=== PATIENT | female | born 1955 | race Caucasian/White ===

== ENCOUNTER 2023-06-02 20:39 | Inpatient (IN) | payer OTHER ==
[~2023-06-02] VITALS: Ht 162.6 cm; Wt 83.0 kg
[2023-06-02] MEDS ORDERED: cloNIDine HCL 0.1 MG TAB PO ONE (21:15)
[2023-06-02 21:46] LABS: Basophils # (auto) 0.1 10 ^3/uL (0-0.2); Basophils % (auto) 1.3 % (0.0-2.0); Eosinophils # (auto) 0.2 10 ^3/uL (0-0.8); Eosinophils % (auto) 2.2 % (0.0-7.0); Hematocrit 35.6 % (36.0-46.0); Hemoglobin 12.4 g/dL (12.2-16.2); Lymphocytes # (auto) 1.4 10 ^3/uL (0.4-5.4); Lymphocytes % (auto) 17.8 % (10.0-50.0); Mean Corpuscular Hemoglobin 31.3 pg (28.0-32.0); Mean Corpuscular Hgb Conc. 34.9 g/dL (32.0-36.0); Mean Corpuscular Volume 89.8 fL (80.0-100.0); Monocytes # (auto) 0.6 10 ^3/uL (0-1.3); Monocytes % (auto) 8.2 % (0.0-12.0); Neutrophils # (auto) 5.5 10 ^3/uL (1.6-8.6); Neutrophils % (auto) 70.5 % (37.0-80.0); Nucleated Red Blood Cells % 0.3 %; Red Blood Cells 3.96 10^6/uL (4.0-5.20); Red Cell Distribution Width 12.7 % (11.8-14.3); White Blood Cell 7.8 10^3/uL (4.4-10.8)
[2023-06-02 21:58] LABS: Urine Bacteria MANY /hpf (None Seen); Urine Blood Negative /uL (Negative); Urine Clarity HAZY (Clear); Urine Color Colorless (Yellow); Urine Protein, UAD 2+ (Negative); Urine Specific Gravity 1.017 (1.001-1.035); Urine Urobilinogen Normal (Negative); Urine WBC 91 /hpf (0 - 5); Urine pH 5.5 (5.0-8.0)
[2023-06-02 22:06] LABS: Albumin 3.7 g/dL (3.4-5.0); Calcium 9.1 mg/dL (8.5-10.1); Potassium 4.5 mmol/L (3.5-5.1)
[2023-06-02 22:08] LABS: Bilirubin, Total 0.2 mg/dL (0.2-1.0); Total Protein 8.1 g/dL (6.4-8.2)
[2023-06-03] MEDS ORDERED: ONDANSETRON ODT 4 MG TAB PO ONE ×2 (01:30→04:30)
[2023-06-03] MEDS ORDERED: MORPHINE SULFATE INJ 2 MG/ml SYRG IM ONE (01:30)
[2023-06-03] MEDS ORDERED: cefTRIAXone 1GM/50ML D5W 50 ML IV ONE (03:30)
[2023-06-03] MEDS ORDERED: hydrALAZINE HCL 20 MG/ML VL IV ONE (03:30)
[2023-06-03] MEDS ORDERED: NITROGLYCERIN 0.4 MG SL TAB SL PRN (04:00)
[2023-06-03] MEDS ORDERED: ONDANSETRON HCL 4 MG/2 ML VIAL IV PRN (04:00)
[2023-06-03] MEDS ORDERED: DOCUSATE SOD 100 MG CAP PO PRN (04:00)
[2023-06-03] MEDS ORDERED: MORPHINE SULFATE INJ 2 MG/ml SYRG IV PRN (04:00)
[2023-06-03] MEDS ORDERED: DEXTROSE (50%) 50ML SYRG IV PRN (04:00)
[2023-06-03] MEDS ORDERED: ACETAMINOPHEN 325 MG TAB PO PRN (04:00)
[2023-06-03] MEDS ORDERED: HYDROcodone-ACET 5/325MG TAB PO PRN (04:00)
[2023-06-03 04:49] LABS: Basophils # (auto) 0.1 10 ^3/uL (0-0.2); Basophils % (auto) 1.1 % (0.0-2.0); Eosinophils # (auto) 0.1 10 ^3/uL (0-0.8); Eosinophils % (auto) 1.3 % (0.0-7.0); Hematocrit 34.1 % (36.0-46.0); Hemoglobin 11.4 g/dL (12.2-16.2); Lymphocytes # (auto) 1.6 10 ^3/uL (0.4-5.4); Lymphocytes % (auto) 16.8 % (10.0-50.0); Mean Corpuscular Hemoglobin 30.7 pg (28.0-32.0); Mean Corpuscular Hgb Conc. 33.4 g/dL (32.0-36.0); Mean Corpuscular Volume 91.9 fL (80.0-100.0); Monocytes # (auto) 0.8 10 ^3/uL (0-1.3); Monocytes % (auto) 7.7 % (0.0-12.0); Neutrophils # (auto) 7.2 10 ^3/uL (1.6-8.6); Neutrophils % (auto) 73.1 % (37.0-80.0); Nucleated Red Blood Cells % 0.1 %; Red Blood Cells 3.71 10^6/uL (4.0-5.20); Red Cell Distribution Width 12.7 % (11.8-14.3); White Blood Cell 9.8 10^3/uL (4.4-10.8)
[2023-06-03 05:02] LABS: Potassium 4.5 mmol/L (3.5-5.1)
[2023-06-03 05:18] LABS: Albumin 3.4 g/dL (3.4-5.0); BUN/Creatinine Ratio 37.6 (10.0-20.0)
[2023-06-03 05:23] LABS: Bilirubin, Total 0.2 mg/dL (0.2-1.0); Total Protein 7.8 g/dL (6.4-8.2)
[2023-06-03] MEDS: SODIUM CHLOR 0.9% PF (SALINE LOCK) 10ML VIAL/SYR IV SCH ×3 (06:41→21:49)
[2023-06-03] MEDS: InsuLIN REG 1unit/0.01ml Soln (100units/ml) SC SCH ×4 (07:21→21:54)
[2023-06-03] MEDS: ACCU-CHEK COMFORT CURVE STRIP VI SCH ×4 (07:24→21:48)
[2023-06-03] MEDS ORDERED: METOCLOPRAMIDE HCL 5MG/ml INJ 2ml VIAL IV PRN (08:00)
[2023-06-03] MEDS: amLODIPine BESYLATE 5 MG TAB PO SCH (11:11)
[2023-06-03 13:55] VITALS: RESP 17; O2SAT 98
[2023-06-03] MEDS: SODIUM BICARBONATE 650 MG TAB PO SCH ×2 (15:33→21:48)
[2023-06-03 16:54] VITALS: BP 121/67; PULSE 64; RESP 14; RESP 17; TEMP 97.4; O2SAT 93; O2SAT 98
[2023-06-03 20:00] VITALS: PULSE 77; PULSE 80; RESP 18
[2023-06-03 22:00] VITALS: BP 168/81; PULSE 71; RESP 18; TEMP 97.7; O2SAT 96
[2023-06-04] VITALS (7 sets, daily range): BP systolic 142–163; BP diastolic 61–79; PULSE 79–93; RESP 16–18; TEMP 98.1–98.8; O2SAT 91–95
[2023-06-04] MEDS: cefTRIAXone 1GM/50ML D5W 50 ML IV SCH (03:11)
[2023-06-04] MEDS: hydrALAZINE HCL 20 MG/ML VL IV PRN ×2 (05:06→19:53)
[2023-06-04] MEDS: SODIUM BICARBONATE 650 MG TAB PO SCH ×3 (05:06→22:00)
[2023-06-04] MEDS: SODIUM CHLOR 0.9% PF (SALINE LOCK) 10ML VIAL/SYR IV SCH ×3 (05:11→22:00)
[2023-06-04 06:01] LABS: Basophils # (auto) 0 10 ^3/uL (0-0.2); Basophils % (auto) 0.4 % (0.0-2.0); Eosinophils # (auto) 0.1 10 ^3/uL (0-0.8); Eosinophils % (auto) 0.6 % (0.0-7.0); Hematocrit 33.7 % (36.0-46.0); Hemoglobin 11.6 g/dL (12.2-16.2); Lymphocytes # (auto) 1.5 10 ^3/uL (0.4-5.4); Lymphocytes % (auto) 13.5 % (10.0-50.0); Mean Corpuscular Hemoglobin 31.2 pg (28.0-32.0); Mean Corpuscular Hgb Conc. 34.5 g/dL (32.0-36.0); Mean Corpuscular Volume 90.5 fL (80.0-100.0); Monocytes # (auto) 0.6 10 ^3/uL (0-1.3); Monocytes % (auto) 5.7 % (0.0-12.0); Neutrophils # (auto) 8.6 10 ^3/uL (1.6-8.6); Neutrophils % (auto) 79.8 % (37.0-80.0); Red Blood Cells 3.72 10^6/uL (4.0-5.20); White Blood Cell 10.8 10^3/uL (4.4-10.8)
[2023-06-04] MEDS: ACCU-CHEK COMFORT CURVE STRIP VI SCH ×3 (06:15→17:00)
[2023-06-04] MEDS: InsuLIN REG 1unit/0.01ml Soln (100units/ml) SC SCH ×4 (06:16→23:00)
[2023-06-04 06:24] LABS: Potassium 4.4 mmol/L (3.5-5.1)
[2023-06-04 06:31] LABS: Albumin 3.2 g/dL (3.4-5.0); BUN/Creatinine Ratio 33.9 (10.0-20.0); Bilirubin, Total 0.2 mg/dL (0.2-1.0); Calcium 8.5 mg/dL (8.5-10.1); Total Protein 7.6 g/dL (6.4-8.2)
[2023-06-04] MEDS: amLODIPine BESYLATE 5 MG TAB PO SCH (09:20)
[2023-06-05] VITALS (7 sets, daily range): BP systolic 125–168; BP diastolic 60–99; PULSE 66–89; RESP 18–20; TEMP 97.6–98.2; O2SAT 90–97
[2023-06-05] MEDS: ACCU-CHEK COMFORT CURVE STRIP VI SCH ×5 (00:57→21:41)
[2023-06-05] MEDS: cefTRIAXone 1GM/50ML D5W 50 ML IV SCH (04:40)
[2023-06-05] MEDS: SODIUM CHLOR 0.9% PF (SALINE LOCK) 10ML VIAL/SYR IV SCH ×3 (07:12→21:42)
[2023-06-05] MEDS: SODIUM BICARBONATE 650 MG TAB PO SCH ×3 (07:13→21:54)
[2023-06-05] MEDS: InsuLIN REG 1unit/0.01ml Soln (100units/ml) SC SCH ×4 (08:03→21:54)
[2023-06-05] MEDS: amLODIPine BESYLATE 5 MG TAB PO SCH (12:51)
[2023-06-05] MEDS ORDERED: AML5T PO (16:38)
[2023-06-05] MEDS ORDERED: SODI650T PO (16:38)
[2023-06-05] MEDS ORDERED: CIPR250T26 PO (16:38)
[2023-06-05] MEDS ORDERED: BLOO-200 XX (16:40)
[2023-06-05] MEDS ORDERED: GLIP5TAB12 PO (16:40)
[2023-06-05] MEDS ORDERED: HYDR-4902 PO (16:47)
[2023-06-06] MEDS ORDERED: ERGO1CAP12 PO (01:24)
[2023-06-06] MEDS ORDERED: GLUC-244 XX (01:24)
[2023-06-06] MEDS ORDERED: ROSU1TAB14 PO (01:24)
[2023-06-06] MEDS ORDERED: ALEN70TA74 PO (01:24)
[2023-06-06] MEDS ORDERED: BLOO1KIT76 (01:24)
[2023-06-06] MEDS ORDERED: CETI-120 PO (01:24)
[2023-06-06] MEDS ORDERED: LANC-634 TOP (01:24)
[2023-06-06] MEDS ORDERED: METH4PAK PO (02:52)
[2023-06-06] MEDS: cefTRIAXone 1GM/50ML D5W 50 ML IV SCH (04:06)
[2023-06-06 05:00] VITALS: BP 124/56; PULSE 76; RESP 18; TEMP 98; O2SAT 93
[2023-06-06] MEDS: SODIUM BICARBONATE 650 MG TAB PO SCH (05:51)
[2023-06-06] MEDS: ACCU-CHEK COMFORT CURVE STRIP VI SCH (06:02)
[2023-06-06] MEDS: SODIUM CHLOR 0.9% PF (SALINE LOCK) 10ML VIAL/SYR IV SCH (06:03)
[2023-06-06] MEDS: InsuLIN REG 1unit/0.01ml Soln (100units/ml) SC SCH (06:04)
[2023-06-06 07:22] LABS: Albumin 2.9 g/dL (3.4-5.0); Calcium 7.9 mg/dL (8.5-10.1); Potassium 4.3 mmol/L (3.5-5.1)
[2023-06-06 07:26] LABS: BUN/Creatinine Ratio 31.7 (10.0-20.0); Bilirubin, Total 0.2 mg/dL (0.2-1.0); Total Protein 6.8 g/dL (6.4-8.2)
[2023-06-06 08:00] VITALS: BP 138/64; PULSE 80; RESP 16; TEMP 98.4; O2SAT 93
[2023-06-06] MEDS: amLODIPine BESYLATE 5 MG TAB PO SCH (08:45)
[2023-06-06 09:00] VITALS: BP 138/64; PULSE 77; RESP 16; TEMP 98.4; O2SAT 95
[2023-06-06 10:14] VITALS: BP 138/64; PULSE 77; RESP 16; TEMP 98.4; O2SAT 93
== END 2023-06-06 12:16 | disposition home health service (06) | DRG 552 ==
LOC: ER 20:39 → TELE 06-03 04:06 → TELE-WESTW 06-03 16:29
PROVIDERS: ADMIT Internal Medicine; ATTEND Internal Medicine
DX: M48.02 Spinal stenosis, cervical region (principal); E87.20 Acidosis, unspecified; N17.9 Acute kidney failure, unspecified; N39.0 Urinary tract infection, site not specified; N18.4 Chronic kidney disease, stage 4 (severe); I16.0 Hypertensive urgency; I12.9 Hypertensive chronic kidney disease with stage 1 through stage 4 chronic kidney disease, or unspecified chronic kidney disease; E11.22 Type 2 diabetes mellitus with diabetic chronic kidney disease; D63.1 Anemia in chronic kidney disease; B96.1 Klebsiella pneumoniae [K. pneumoniae] as the cause of diseases classified elsewhere
CPT/HCPCS: 36415; 70450; 70551; 71045; 72125; 72141; 80053; 81001; 82306; 82962; 83036; 83970; 84100; 84484; 85025; 87086; 87088; 87186; 93005; 96365; 96372; 96375; 97110; 97116; 97163; 97530; G0378; J0696; J1815; Q0162

== ENCOUNTER 2024-03-12 14:38 | Inpatient (IN) | payer OTHER ==
[~2024-03-12] VITALS: Ht 162.6 cm; Wt 78.6 kg
[~2024-03-12 14:38] MED LIST: ALEN70TA74 PO; AML5T PO; BLOO-200 XX; BLOO1KIT76; CETI-120 PO; CIPR250T26 PO; ERGO1CAP12 PO; GLIP5TAB21 PO; GLUC-244 XX; HYDR-4902 PO; LANC-634 TOP; METH4PAK PO; ROSU20TA56 PO; SODI650T PO
[2024-03-12 15:53] LABS: Basophils # (auto) 0.1 10 ^3/uL (0-0.2); Basophils % (auto) 0.9 % (0.0-2.0); Eosinophils # (auto) 0.2 10 ^3/uL (0-0.8); Eosinophils % (auto) 1.6 % (0.0-7.0); Hemoglobin 8.8 g/dL (12.2-16.2); Lymphocytes # (auto) 1.4 10 ^3/uL (0.4-5.4); Lymphocytes % (auto) 15.2 % (10.0-50.0); Mean Corpuscular Hemoglobin 30.3 pg (28.0-32.0); Mean Corpuscular Hgb Conc. 33.8 g/dL (32.0-36.0); Mean Corpuscular Volume 89.7 fL (80.0-100.0); Monocytes # (auto) 0.7 10 ^3/uL (0-1.3); Neutrophils # (auto) 6.8 10 ^3/uL (1.6-8.6); Neutrophils % (auto) 74.3 % (37.0-80.0); Nucleated Red Blood Cells % 0.1 %; White Blood Cell 9.2 10^3/uL (4.4-10.8)
[2024-03-12 16:06] LABS: Alanine Aminotransferase 33 U/L (7-40); Albumin 4.2 g/dL (3.2-4.8); Alkaline Phosphatase 81 U/L (46-116); Anion Gap 11 (5-15); Aspartate Aminotransferase 23 U/L (13-40); BUN/Creatinine Ratio 22.8 (10.0-20.0); Calcium 9.5 mg/dL (8.5-10.1); Carbon Dioxide 18 mmol/L (20-30); Chloride 109 mmol/L (98-107); Glucose 161 mg/dL (74-106); Potassium 5.2 mmol/L (3.5-5.1); Sodium 138 mmol/L (136-145)
[2024-03-12 16:07] LABS: Bilirubin, Total 0.2 mg/dL (0.2-1.0); Total Protein 6.8 g/dL (5.7-8.2)
[2024-03-12 16:22] LABS: Blood Urea Nitrogen 91 mg/dL (9-23)
[2024-03-12 17:21] LABS: INR 1.01 (0.9-1.15); Partial Thromboplastin Time 23.4 SEC (24.5-34.5); Prothrombin Time 10.7 sec (9.3-11.8)
[2024-03-12 20:30] VITALS: PULSE 77; RESP 18; O2SAT 94
[2024-03-12] MEDS: SODIUM CHLORIDE 0.9% 1,000 ML IV ONE (20:32)
[2024-03-12] MEDS: ASPirin 81 mg TAB PO ONE (20:32)
[2024-03-12] MEDS: KETOROLAC TROMETH 30 MG/ML 1ML VIAL IV ONE (20:32)
[2024-03-12] MEDS ORDERED: DEXTROSE (50%) 50ML SYRG IV PRN (22:30)
[2024-03-12] MEDS ORDERED: DOCUSATE SOD 100 MG CAP PO PRN (22:30)
[2024-03-12] MEDS ORDERED: HYDROcodone-ACET 5/325MG TAB PO PRN (22:30)
[2024-03-12] MEDS ORDERED: MORPHINE SULFATE INJ 2 MG/ml SYRG IV PRN (22:30)
[2024-03-13] VITALS (10 sets, daily range): BP systolic 146–161; BP diastolic 53–81; PULSE 76–87; RESP 16–20; TEMP 97.5–98.5; O2SAT 90–96
[2024-03-13 06:20] LABS: Basophils # (auto) 0.1 10 ^3/uL (0-0.2); Eosinophils # (auto) 0.3 10 ^3/uL (0-0.8); Hemoglobin 8.3 g/dL (12.2-16.2); Lymphocytes # (auto) 2.1 10 ^3/uL (0.4-5.4); Mean Corpuscular Volume 89.6 fL (80.0-100.0); Monocytes # (auto) 1.1 10 ^3/uL (0-1.3); Red Cell Distribution Width 12.7 % (11.8-14.3)
[2024-03-13 06:22] LABS: Basophils % (auto) 0.8 % (0.0-2.0); Eosinophils % (auto) 2.7 % (0.0-7.0); Hematocrit 24.3 % (36.0-46.0); Lymphocytes % (auto) 20.9 % (10.0-50.0); Mean Corpuscular Hemoglobin 30.8 pg (28.0-32.0); Mean Corpuscular Hgb Conc. 34.4 g/dL (32.0-36.0); Monocytes % (auto) 11.4 % (0.0-12.0); Neutrophils # (auto) 6.4 10 ^3/uL (1.6-8.6); Neutrophils % (auto) 64.2 % (37.0-80.0); Nucleated Red Blood Cells % 0.1 %; Red Blood Cells 2.71 10^6/uL (4.0-5.20)
[2024-03-13 06:24] LABS: Chloride 111 mmol/L (98-107); Potassium 4.9 mmol/L (3.5-5.1); Sodium 139 mmol/L (136-145)
[2024-03-13 06:25] LABS: Anion Gap 13 (5-15); Calcium 9.3 mg/dL (8.7-10.4); Carbon Dioxide 15 mmol/L (20-30)
[2024-03-13 06:30] LABS: Glucose 133 mg/dL (74-106)
[2024-03-13 06:39] LABS: Blood Urea Nitrogen 87 mg/dL (9-23)
[2024-03-13] MEDS: ACCU-CHEK COMFORT CURVE STRIP VI SCH (06:46)
[2024-03-13] MEDS: HEPARIN SODIUM (PORCINE) 5000 UNITS/ML 1ML VIAL SC SCH (06:47)
[2024-03-13] MEDS: InsuLIN REG 1unit/0.01ml Soln (100units/ml) SC SCH (06:54)
[2024-03-13] MEDS: ASPirin 81 mg TAB PO SCH (09:12)
[2024-03-13] MEDS: ACETAMINOPHEN 325 MG TAB PO PRN (11:03)
[2024-03-13] MEDS ORDERED: SODIUM BICARB 50mEq/50ml Vial 50 ML in SOD CHL 0.45% 1,000 ML IV SCH (12:30)
[2024-03-13] MEDS: hydrALAZINE HCL 20 MG/ML VL IV PRN (12:40)
[2024-03-13] MEDS ORDERED: FERR325T24 PO (13:03)
[2024-03-13] MEDS ORDERED: CHOL20007 PO (13:03)
[2024-03-13 13:08] LABS: Magnesium 1.7 mg/dL (1.6-2.6)
[2024-03-13 13:09] LABS: Phosphorus 6.1 mg/dL (2.4-5.1)
[2024-03-13] MEDS ORDERED: SODIUM CHL 0.9% 1000 ML BAG XX ONE (13:30)
[2024-03-13 13:45] LABS: Hepatitis B Surface Antigen Negative (Negative)
[2024-03-13 14:07] LABS: Hepatitis C Antibody Negative (Negative)
[2024-03-13 15:13] LABS: Urine Amorphous Crystal FEW /hpf (None Seen); Urine Bacteria FEW /hpf (None Seen); Urine Blood TRACE /uL (Negative); Urine Clarity Clear (Clear); Urine Color Colorless (Yellow); Urine Protein, UAD 2+ (Negative); Urine Specific Gravity 1.012 (1.001-1.035); Urine Urobilinogen Normal (Negative); Urine WBC 3 /hpf (0 - 5); Urine pH 5.5 (5.0-9.0)
[2024-03-13 15:20] LABS: Protein, Urine 162.2 mg/dL (0.0-11.9)
[2024-03-13 15:21] LABS: Creatinine, Urine 49.24 mg/dL (30.0-125.0); Urine Protein/Creatinine Ratio 3.29
[2024-03-13] MEDS: ATORVASTATIN 20 MG TAB PO SCH (21:01)
[2024-03-13] MEDS: EPOETIN ALFA-EPBX 10,000 UNIT/1ML VIAL SC ONE (21:02)
[2024-03-14] VITALS (10 sets, daily range): BP systolic 118–160; BP diastolic 42–77; PULSE 71–82; RESP 16–21; TEMP 97.6–99.2; O2SAT 91–98
[2024-03-14 06:44] LABS: Basophils # (auto) 0.1 10 ^3/uL (0-0.2); Basophils % (auto) 0.9 % (0.0-2.0); Eosinophils # (auto) 0.2 10 ^3/uL (0-0.8); Eosinophils % (auto) 2.4 % (0.0-7.0); Hemoglobin 8.4 g/dL (12.2-16.2); Lymphocytes % (auto) 21.7 % (10.0-50.0); Mean Corpuscular Hgb Conc. 33.6 g/dL (32.0-36.0); Mean Corpuscular Volume 89.3 fL (80.0-100.0); Monocytes % (auto) 10.5 % (0.0-12.0); Neutrophils % (auto) 64.5 % (37.0-80.0); Nucleated Red Blood Cells % 0.1 %; Red Cell Distribution Width 12.8 % (11.8-14.3); White Blood Cell 9.3 10^3/uL (4.4-10.8)
[2024-03-14 06:59] LABS: Anion Gap 10 (5-15); Calcium 9.3 mg/dL (8.5-10.1); Carbon Dioxide 23 mmol/L (20-30); Chloride 106 mmol/L (98-107); Sodium 139 mmol/L (136-145)
[2024-03-14 07:05] LABS: BUN/Creatinine Ratio 15.8 (10.0-20.0); Glucose 105 mg/dL (74-106)
[2024-03-14 07:08] LABS: Blood Urea Nitrogen 44 mg/dL (9-23)
[2024-03-14] MEDS ORDERED: AMLO1TAB22 PO (16:46)
[2024-03-14] MEDS ORDERED: LINA5TAB PO (16:46)
[2024-03-14] MEDS: NITROGLYCERIN 0.4 MG SL TAB SL PRN (18:36)
[2024-03-15] VITALS (8 sets, daily range): BP systolic 139–160; BP diastolic 56–67; PULSE 70–100; RESP 16–21; TEMP 96.8–99; O2SAT 90–97
[2024-03-15] MEDS: ONDANSETRON HCL 4 MG/2 ML VIAL IV PRN (03:02)
[2024-03-15 06:43] LABS: Basophils # (auto) 0 10 ^3/uL (0-0.2); Basophils % (auto) 0.4 % (0.0-2.0); Chloride 101 mmol/L (98-107); Eosinophils # (auto) 0.1 10 ^3/uL (0-0.8); Eosinophils % (auto) 0.6 % (0.0-7.0); Hematocrit 27.4 % (36.0-46.0); Hemoglobin 9.3 g/dL (12.2-16.2); Lymphocytes % (auto) 10.4 % (10.0-50.0); Mean Corpuscular Hemoglobin 30.2 pg (28.0-32.0); Mean Corpuscular Volume 88.7 fL (80.0-100.0); Monocytes # (auto) 0.5 10 ^3/uL (0-1.3); Monocytes % (auto) 4.8 % (0.0-12.0); Neutrophils # (auto) 8.4 10 ^3/uL (1.6-8.6); Neutrophils % (auto) 83.8 % (37.0-80.0); Red Blood Cells 3.09 10^6/uL (4.0-5.20); Red Cell Distribution Width 12.9 % (11.8-14.3); Sodium 138 mmol/L (136-145); White Blood Cell 10.1 10^3/uL (4.4-10.8)
[2024-03-15 06:44] LABS: Anion Gap 8 (5-15); Calcium 9.3 mg/dL (8.5-10.1); Carbon Dioxide 29 mmol/L (20-30)
[2024-03-15 06:49] LABS: Glucose 163 mg/dL (74-106)
[2024-03-15 06:57] LABS: Blood Urea Nitrogen 33 mg/dL (9-23)
[2024-03-15] MEDS: amLODIPine BESYLATE 5 MG TAB PO SCH (09:29)
[2024-03-15] MEDS: NIFEdipine ER 30 MG TAB PO SCH (09:31)
[2024-03-15] MEDS ORDERED: glipiZIDE 5 MG TAB PO ONE (10:00)
[2024-03-15] MEDS: FUROSEMIDE 100 MG/10ML VIAL IV ONE (15:36)
[2024-03-16 05:40] LABS: Basophils # (auto) 0.1 10 ^3/uL (0-0.2); Basophils % (auto) 0.8 % (0.0-2.0); Eosinophils # (auto) 0 10 ^3/uL (0-0.8); Eosinophils % (auto) 0.1 % (0.0-7.0); Hemoglobin 9.1 g/dL (12.2-16.2); Lymphocytes % (auto) 18.2 % (10.0-50.0); Mean Corpuscular Hemoglobin 30.2 pg (28.0-32.0); Mean Corpuscular Hgb Conc. 33.8 g/dL (32.0-36.0); Mean Corpuscular Volume 89.3 fL (80.0-100.0); Monocytes % (auto) 9.6 % (0.0-12.0); Neutrophils # (auto) 7.6 10 ^3/uL (1.6-8.6); Neutrophils % (auto) 71.3 % (37.0-80.0); Nucleated Red Blood Cells % 0.1 %; Red Blood Cells 3.02 10^6/uL (4.0-5.20); Red Cell Distribution Width 13.2 % (11.8-14.3); White Blood Cell 10.7 10^3/uL (4.4-10.8)
[2024-03-16 06:10] LABS: Anion Gap 9 (5-15); Carbon Dioxide 28 mmol/L (20-30); Chloride 97 mmol/L (98-107); Sodium 134 mmol/L (136-145)
[2024-03-16 06:16] LABS: Blood Urea Nitrogen 42 mg/dL (9-23); Glucose 174 mg/dL (74-106)
[2024-03-16 08:00] VITALS: PULSE 81; RESP 17; O2SAT 92
[2024-03-16 08:12] VITALS: BP 114/62; PULSE 81; RESP 17; TEMP 100.1; O2SAT 92
[2024-03-16] MEDS: FUROSEMIDE 100 MG/10ML VIAL IV SCH (09:28)
[2024-03-16 11:40] VITALS: BP 142/80; PULSE 88; RESP 17; TEMP 99.6; O2SAT 98
[2024-03-16] MEDS ORDERED: ZOFR4T PO (15:37)
[2024-03-16 16:07] VITALS: BP 116/60; PULSE 78; RESP 16; TEMP 98.3; O2SAT 95
== END 2024-03-16 17:45 | disposition home or self-care (01) | DRG 682 ==
LOC: ER 14:38 → EDBD 14:38 → TELE 22:41 → TELE-WESTW 03-13 03:05
PROVIDERS: ADMIT Nurse Practitioner Family; ATTEND Nurse Practitioner Family
PROC: 5A1D70Z Performance of Urinary Filtration, Intermittent, Less than 6 Hours Per Day (ICD-10-PCS; principal; 2024-03-13)
PROC: 5A1D70Z Performance of Urinary Filtration, Intermittent, Less than 6 Hours Per Day (ICD-10-PCS; 2024-03-14)
DX: I12.0 Hypertensive chronic kidney disease with stage 5 chronic kidney disease or end stage renal disease (principal); N18.6 End stage renal disease; I16.0 Hypertensive urgency; E87.5 Hyperkalemia; E11.22 Type 2 diabetes mellitus with diabetic chronic kidney disease; D63.1 Anemia in chronic kidney disease; E78.5 Hyperlipidemia, unspecified; E11.65 Type 2 diabetes mellitus with hyperglycemia; E66.9 Obesity, unspecified; Z99.2 Dependence on renal dialysis; Z82.49 Family history of ischemic heart disease and other diseases of the circulatory system; Z79.899 Other long term (current) drug therapy; Z68.29 Body mass index [BMI] 29.0-29.9, adult; Z79.4 Long term (current) use of insulin
CPT/HCPCS: 36415; 71046; 76775; 78582; 80048; 80053; 81001; 82306; 82570; 82962; 83735; 83970; 84100; 84156; 84300; 84484; 85025; 85379; 85610; 85730; 86803; 87340; 90935; 93005; 93306; 93970; G0378; J1642; J1815; J2405

== ENCOUNTER 2024-08-26 11:02 | Inpatient (IN) | payer OTHER ==
[~2024-08-26] VITALS: Ht 167.6 cm; Wt 93.8 kg
[~2024-08-26 11:02] MED LIST changes: -AML5T PO; +AMLO1TAB22 PO; -BLOO-200 XX; -BLOO1KIT76; -CETI-120 PO; -CIPR250T26 PO; +FERR325T24 PO; -GLUC-244 XX; -HYDR-4902 PO; -LANC-634 TOP; +LINA5TAB PO; -METH4PAK PO; -SODI650T PO; +ZOFR4T PO
[2024-08-26 11:25] LABS: Basophils # (auto) 0.1 10 ^3/uL (0-0.2); Basophils % (auto) 0.4 % (0.0-2.0); Eosinophils # (auto) 0 10 ^3/uL (0-0.8); Eosinophils % (auto) 0.3 % (0.0-7.0); Hematocrit 32.2 % (36.0-46.0); Lymphocytes # (auto) 0.7 10 ^3/uL (0.4-5.4); Lymphocytes % (auto) 5.9 % (10.0-50.0); Mean Corpuscular Hemoglobin 32.1 pg (28.0-32.0); Mean Corpuscular Hgb Conc. 34.1 g/dL (32.0-36.0); Mean Corpuscular Volume 94.2 fL (80.0-100.0); Monocytes # (auto) 0.8 10 ^3/uL (0-1.3); Monocytes % (auto) 6.2 % (0.0-12.0); Neutrophils # (auto) 10.9 10 ^3/uL (1.6-8.6); Neutrophils % (auto) 87.2 % (37.0-80.0); Platelet Count (auto) 262 10^3/uL (140-450); Red Blood Cells 3.42 10^6/uL (4.0-5.20); Red Cell Distribution Width 16.5 % (11.8-14.3); White Blood Cell 12.5 10^3/uL (4.4-10.8)
[2024-08-26] MEDS: MORPHINE SULFATE 4 MG/ML SYR/VIAL IV ONE (11:37)
[2024-08-26] MEDS: METOCLOPRAMIDE HCL 5MG/ml INJ 2ml VIAL IV ONE (11:38)
[2024-08-26] MEDS: FAMOTIDINE (10MG/ML) 2ML VL IV ONE (11:38)
[2024-08-26 11:53] VITALS: PULSE 75; RESP 19; O2SAT 93
[2024-08-26 11:57] LABS: Alanine Aminotransferase 13 U/L (7-40); Albumin 4.2 g/dL (3.2-4.8); Alkaline Phosphatase 126 U/L (46-116); Anion Gap 8 (5-15); Aspartate Aminotransferase 14 U/L (13-40); BUN/Creatinine Ratio 12.5 (10.0-20.0); Blood Urea Nitrogen 37 mg/dL (9-23); Calcium 9.2 mg/dL (8.7-10.4); Carbon Dioxide 25 mmol/L (20-31); Chloride 103 mmol/L (98-107); Glucose 172 mg/dL (74-106); Potassium 3.8 mmol/L (3.5-5.1); Sodium 136 mmol/L (136-145)
[2024-08-26 11:58] LABS: Bilirubin, Total 0.4 mg/dL (0.2-1.0); Total Protein 6.8 g/dL (5.7-8.2)
[2024-08-26 12:11] LABS: Lipase 74 U/L (12-53)
[2024-08-26] MEDS: CEFEPIME 2GM/50ML NS 50 ML IV ONE (17:52)
[2024-08-26] MEDS: AZITHROMYCIN 250 MG TAB PO ONE (17:52)
[2024-08-26] MEDS ORDERED: NITROGLYCERIN 0.4 MG SL TAB SL PRN (18:30)
[2024-08-26] MEDS ORDERED: MORPHINE SULFATE INJ 2 MG/ml SYRG IV PRN (18:30)
[2024-08-26] MEDS ORDERED: DEXTROSE (50%) 50ML SYRG IV PRN (18:30)
[2024-08-26] MEDS ORDERED: ONDANSETRON HCL 4 MG/2 ML VIAL IV PRN (18:30)
[2024-08-26] MEDS: hydrALAZINE HCL 20 MG/ML VL IV SCH (18:57)
[2024-08-26 19:30] VITALS: PULSE 69; RESP 16; O2SAT 98
[2024-08-26] MEDS: ACCU-CHEK COMFORT CURVE STRIP VI SCH (22:00)
[2024-08-26] MEDS: InsuLIN REG 1unit/0.01ml Soln (100units/ml) SC SCH (22:00)
[2024-08-26] MEDS: METOCLOPRAMIDE 10 mg/10ml ORAL soln PO SCH (22:00)
[2024-08-26] MEDS: PANTOPRAZOLE 40 MG/10 ML VIAL INJ IV SCH (22:00)
[2024-08-26 22:09] LABS: Uric Acid 4.1 mg/dL (3.1-7.8)
[2024-08-26 22:11] LABS: Magnesium 1.9 mg/dL (1.6-2.6)
[2024-08-27 04:15] VITALS: PULSE 66; RESP 18; O2SAT 96
[2024-08-27 05:00] VITALS: BP 130/47; PULSE 67; RESP 18; TEMP 98.6; O2SAT 96
[2024-08-27] MEDS: SODIUM CHL 0.9% 1000 ML BAG XX ONE (07:00)
[2024-08-27 09:12] VITALS: BP 112/34; PULSE 75; RESP 20; TEMP 98.5; O2SAT 100
[2024-08-27 12:03] LABS: Basophils # (auto) 0.1 10 ^3/uL (0-0.2); Basophils % (auto) 0.7 % (0.0-2.0); Eosinophils # (auto) 0.4 10 ^3/uL (0-0.8); Eosinophils % (auto) 5.2 % (0.0-7.0); Hematocrit 30.9 % (36.0-46.0); Hemoglobin 10.4 g/dL (12.2-16.2); Lymphocytes # (auto) 1.4 10 ^3/uL (0.4-5.4); Lymphocytes % (auto) 16.5 % (10.0-50.0); Mean Corpuscular Hemoglobin 31.8 pg (28.0-32.0); Mean Corpuscular Hgb Conc. 33.7 g/dL (32.0-36.0); Mean Corpuscular Volume 94.4 fL (80.0-100.0); Monocytes # (auto) 0.9 10 ^3/uL (0-1.3); Monocytes % (auto) 10.8 % (0.0-12.0); Neutrophils # (auto) 5.7 10 ^3/uL (1.6-8.6); Neutrophils % (auto) 66.8 % (37.0-80.0); Platelet Count (auto) 236 10^3/uL (140-450); Red Blood Cells 3.27 10^6/uL (4.0-5.20); Red Cell Distribution Width 17.2 % (11.8-14.3); White Blood Cell 8.6 10^3/uL (4.4-10.8)
[2024-08-27 12:23] LABS: Anion Gap 6 (5-15); Carbon Dioxide 26 mmol/L (20-31); Chloride 104 mmol/L (98-107); Potassium 4.1 mmol/L (3.5-5.1); Sodium 136 mmol/L (136-145)
[2024-08-27 12:24] LABS: Calcium 9.2 mg/dL (8.7-10.4)
[2024-08-27 12:28] LABS: Glucose 108 mg/dL (74-106)
[2024-08-27 12:29] LABS: BUN/Creatinine Ratio 10.6 (10.0-20.0); Blood Urea Nitrogen 46 mg/dL (9-23); Lipase 138 U/L (12-53)
[2024-08-27 12:30] LABS: Amylase 92 U/L (30-118)
[2024-08-27 13:00] VITALS: BP 132/52; PULSE 70; RESP 19; TEMP 98.5; O2SAT 97
[2024-08-27 16:46] VITALS: BP 132/31; PULSE 82; RESP 18; TEMP 97.6; O2SAT 98
[2024-08-27 21:09] VITALS: BP 140/51; PULSE 84; RESP 13; TEMP 99.2; O2SAT 95
[2024-08-28 00:19] VITALS: BP 140/48; PULSE 83; RESP 13; TEMP 97.7; O2SAT 98
[2024-08-28 04:10] VITALS: BP 135/55; PULSE 68; RESP 14; TEMP 98.1; O2SAT 95
[2024-08-28 09:00] VITALS: BP 160/51; PULSE 74; RESP 16; TEMP 98.4; O2SAT 100
[2024-08-28] MEDS: FAMOTIDINE 20 MG TAB PO SCH (10:00)
[2024-08-28 12:54] VITALS: BP 158/48; PULSE 92; RESP 18; TEMP 97.9; O2SAT 94
[2024-08-28] MEDS ORDERED: ZOFR4T PO (13:07)
[2024-08-28] MEDS ORDERED: PANT40T PO (13:07)
[2024-08-28 14:16] VITALS: BP 135/55; TEMP 36.6
== END 2024-08-28 15:00 | disposition home or self-care (01) | DRG 640 ==
LOC: EDUNIT# 11:02 → EDBD 11:02 → ER 11:07 → OVERFLOW 18:28 → CENTRAL 08-27 03:25
PROVIDERS: ADMIT Hospitalist; ATTEND Hospitalist
DX: E86.0 Dehydration (principal); K85.90 Acute pancreatitis without necrosis or infection, unspecified; N18.6 End stage renal disease; I13.2 Hypertensive heart and chronic kidney disease with heart failure and with stage 5 chronic kidney disease, or end stage renal disease; J98.11 Atelectasis; I50.32 Chronic diastolic (congestive) heart failure; K21.9 Gastro-esophageal reflux disease without esophagitis; E11.22 Type 2 diabetes mellitus with diabetic chronic kidney disease; D63.1 Anemia in chronic kidney disease; Z99.2 Dependence on renal dialysis; Z90.49 Acquired absence of other specified parts of digestive tract; Z79.84 Long term (current) use of oral hypoglycemic drugs
CPT/HCPCS: 36415; 71045; 74176; 80048; 80053; 82150; 82306; 82962; 83605; 83690; 83735; 83880; 83970; 84100; 84484; 84550; 85025; 87040; 87081; 90935; 93005; 93971; 99291; G0378; J0692; J1642; J1815; J2405; J2470; J3490

== ENCOUNTER 2024-11-20 09:25 | Inpatient (IN) | payer OTHER ==
[~2024-11-20] VITALS: Ht 162.6 cm; Wt 73.1 kg
[~2024-11-20 09:25] MED LIST changes: +PANT40T PO
--- NOTE | 2024-11-20 09:37 | ED.PDOC ---
History of Present Illness HPI Comments 68-year-old female brought in by EMS presents with a chief complaint of left forearm pain x 15 minutes ago. Patient was receiving dialysis this morning and had about 5 minutes left of her treatment when she states that she began to have left forearm pain that she rates a 10/10. Patient reports that the pain has since subsided, but that it was near her fistula that was placed in June 2024. Patient was given Oxygen via NC for comfort according to EMS. No other symptoms or modifying factors present at this time. 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, Medications, Allergies Allergies: Coded Allergies: NO KNOWN ALLERGIES (Unverified , 06/29/11) Home Meds Active Scripts Pantoprazole Sodium Sesquihydr (Pantoprazole Sodium) 40 Mg Tab, 40 MG PO DAILY@BREAKFAST, #30 TAB Prov:SHANNON LOPEZ MD 08/28/24 Ondansetron Odt 4MG Tab (ZOFRAN PO) 4 Mg Tb, 4 MG PO Q8HPRN PRN, #20 TAB ODT TAB-DISSOLVE IN MOUTH, THEN SWALLOW Prov:SHANNON LOPEZ MD 08/28/24 Glipizide (Glipizide) 5 Mg Tab, 2.5 MG PO DAILY, #15 TAB Prov:MOHAMUD BRANNON MD 06/05/23 Reported Medications Linagliptin Base (TRADJENTA) 5 Mg Tab, 1 TAB PO DAILY 03/14/24 Amlodipine Besylate (Amlodipine Besylate) 5 Mg Tab, 1 TAB PO DAILY 03/14/24 Ferrous Sulfate (Ferrous Sulfate) 325 Mg Tab, 325 MG PO BIDWM for 30 Days, MG 03/13/24 Alendronate Sodium (Alendronate Sodium) 70 Mg Tab, 1 TAB PO QWEEKLY 06/06/23 Rosuvastatin Calcium (Rosuvastatin Calcium) 20 Mg Tab, 1 TAB PO DAILY 06/06/23 Ergocalciferol (Vitamin D) 50,000 Unit Cap, 1 CAP PO QWEEKLY 06/06/23 Information Source: Patient, Emergency Med Personnel Mode of Arrival: EMS Severity: Moderate Timing: Minutes Duration: Since onset Prehospital treatment: Oxygen Past Medical History PAST MEDICAL HISTORY: DM, HTN Surgical History: Appendectomy, Cholecystectomy BRAND ADVISOR History: No Pertinent BRAND ADVISOR History Family History Family History: Reviewed,noncontributory to illness, No family hx of Cancer, No family hx of DM, No family hx of Heart jesus, No family hx of HTN, No family hx ofKidney jesus, No family hx of Liver jesus, No family hx of Lung jesus, No family hx of Stroke Social History Smoker: Non-Smoker Alcohol: Denies ETOH Use Drugs: Denies Drug Use Lives In: Home Constitutional: denies: chills, diaphoresis, fatigue, fever, malaise, sweats, weakness, others EENTM: denies: blurred vision, double vision, ear bleeding, ear discharge, ear drainage, ear pain, ear ringing, eye pain, eye redness, hearing loss, mouth pain, mouth swelling, nasal discharge, nose bleeding, nose congestion, nose pain, photophobia, tearing, throat pain, throat swelling, voice changes, others Respiratory: denies: cough, hemoptysis, orthopnea, SOB at rest, shortness of breath, SOB with excertion, stridor, wheezing, others Cardiovascular: denies: chest pain, dizzy spells, diaphoresis, Dyspnea on exertion, edema, irregular heart beat, left arm pain, lightheadedness, palpitations, PND, syncope, others Gastrointestinal: denies: abdomen distended, abdominal pain, blood streaked bowels, constipated, diarrhea, dysphagia, difficulty swallowing, hematemesis, melena, nausea, poor appetite, poor fluid intake, rectal bleeding, rectal pain, vomiting, others Genitourinary: denies: abnormal vagina bleeding, burning, dyspareunia, dysuria, flank pain, frequency, hematuria, incontinence, pain, , vagina discharge, urgency, others Neurological: denies: dizziness, fainting, headache, left sided numbness, left sided weakness, numbness, paresthesia, pre-existing deficit, right sided numbness, right sided weakness, seizure, speech problems, tingling, tremors, weakness, others Musculoskeletal: reports: muscle pain (LEFT FOREARM PAIN); denies: back pain, gout, joint pain, joint swelling, muscle stiffness, neck pain, others Integumetry: denies: bruises, change in color, change in hair/nails, dryness, laceration, lesions, lumps, rash, wounds, others Allergic/Immunocompromised: denies: Difficulty Healing, Frequent Infections, Hives, Itching, others Hematologic/Lymphatic: denies: anemia, blood clots, easy bleeding, easy bruising, swollen glands, others Endocrine: denies: excessive hunger, excessive sweating, excessive thirst, excessive urination, flushing, intolerance to cold, intolerance to heat, unexplained weight gain, unexplained weight loss, others Psychiatric: denies: anxiety, bipolar disorder, depression, hopeless, panic disorder, schizophrenia, sleepless, suicidal, others All Other Systems: Reviewed and Negative Physical Exam General Appearance: No Apparent Distress, Normal HEENT: Normal ENT Inspection, Pharynx Normal, TMs Normal Neck: Full Range of Motion, Non-Tender, Normal, Normal Inspection Respiratory: Chest Non-Tender, Lungs Clear, No Accessory Muscle Use, No Respiratory Distress, Normal Breath Sounds Cardiovascular: No Edema, No JVD, No Murmur, No Gallop, Normal Peripheral Pulses, Regular Rate/Rhythm Breast Exam: Deferred Gastrointestinal: No Organomegaly, Non Tender, No Pulsatile Mass, Normal Bowel Sounds, Soft Genitalia: Deferred Pelvic: Deferred Rectal: Deferred Extremities: No calf tenderness, Normal capillary refill, Normal inspection, Normal range of motion, No pedal edema, Tender (LEFT FOREARM IS TENDER TO PALPATION) Musculoskeletal : Apperance: Normal 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 Was a procedure done?: No EKG EKG : Pulse Rate (adult): 68 [place]: Normal Cardiac Rhythm: NSR Block: None Hypertrophy: None ST: Nonsp Differential Dx Considerations may include: anginal equivalent, muscular pain, dvt, av fistula infection, cluadication, neuropathy X-Ray, Labs, Meds, VS Vital Signs Date Time Temp Pulse Resp B/P (MAP) Pulse Ox O2 Delivery O2 Flow Rate FiO2 11/20/24 14:16 98.2 62 16 134/54 (80) 99 98.2 11/20/24 11:48 68 11/20/24 11:05 66 16 98 Nasal Cannula 3.0 11/20/24 11:05 97.6 66 16 139/59 (85) 98 97.6 11/20/24 09:29 99.9 66 12 140/60 (86) 94 11/20/24 09:26 68 Lab Test 11/20/24 13:15 11/20/24 10:51 11/20/24 09:55 Range/Units Troponin I High Sensitivity 27 </=34 ng/L White Blood Count 6.0 4.4-10.8 10^3/uL Red Blood Count 2.83 L 4.0-5.20 10^6/uL Hemoglobin 9.1 L 12.2-16.2 g/dL Hematocrit 26.5 L 36.0-46.0 % Mean Corpuscular Volume 93.7 80.0-100.0 fL Mean Corpuscular Hemoglobin 32.2 H 28.0-32.0 pg Mean Corpuscular Hemoglobin Concent 34.4 32.0-36.0 g/dL Red Cell Distribution Width 13.4 11.8-14.3 % Platelet Count 222 140-450 10^3/uL Mean Platelet Volume 7.7 6.9-10.8 fL Neutrophils (%) (Auto) 74.7 37.0-80.0 % Lymphocytes (%) (Auto) 15.7 10.0-50.0 % Monocytes (%) (Auto) 8.1 0.0-12.0 % Eosinophils (%) (Auto) 0.9 0.0-7.0 % Basophils (%) (Auto) 0.6 0.0-2.0 % Neutrophils # (Auto) 4.4 1.6-8.6 10 ^3/uL Lymphocytes # (Auto) 0.9 0.4-5.4 10 ^3/uL Monocytes # (Auto) 0.5 0-1.3 10 ^3/uL Eosinophils # (Auto) 0.1 0-0.8 10 ^3/uL Basophils # (Auto) 0 0-0.2 10 ^3/uL Nucleated Red Blood Cells 0.0 % Sodium Level 140 136-145 mmol/L Potassium Level 3.4 L 3.5-5.1 mmol/L Chloride Level 103 98-107 mmol/L Carbon Dioxide Level 29 20-31 mmol/L Anion Gap 8 5-15 Blood Urea Nitrogen 18 9-23 mg/dL Creatinine 2.33 H 0.550-1.02 mg/dL Glomerular Filtration Rate Calc 22 >90 mL/min BUN/Creatinine Ratio 7.7 L 10.0-20.0 Serum Glucose 84 74-106 mg/dL Calcium Level 9.1 8.7-10.4 mg/dL Current Medications Medications (Trade) Dose Ordered Sig/Linda Route Start Time Stop Time Status Last Admin Acetaminophen/ Hydrocodone Bitart ([place] 5/325MG Tab) 1 tab ONCE ONCE PO 11/20/24 09:30 11/20/24 09:37 DC 11/20/24 10:30 Aspirin 325 mg ONCE ONCE PO 11/20/24 12:00 11/20/24 12:01 DC 11/20/24 12:57 Time of 1ST Reevaluation: 10:00 Reevaluation 1ST: Unchanged Time of 2ND Reevaluation: 11:46 Reevaluation 2ND: Resolved Patient Education/Counseling: Diagnosis, Treatment, Prognosis, Need For Follow Up Family Education/Counseling: No Family Present Departure 1 Departure Time of Disposition: 11:47 Impression: Primary Impression: Anginal equivalent Disposition: ADMITTED INPATIENT Admit to: [facility] Condition: Stable Discharged With: Self Critical Care Note Critical Care Time?: Yes (55 min-critical care time only) Critical care comment: Due to concerns for patients condition deteriorating, the care required my highest level of attention and readiness to intervene. I assessed the patient, reviewed the medical records, ordered the appropriate tests and treatments, then reassessed for results and responsiveness. I communicated with medical personnel and consultants and formulated a plan of care. Total critical care time excludes any procedures Stability Stability form required: No Heart Score Heart Score: Heart Score Response (Comments) Value History Highly Suspicious 2 EKG Repolarization Disturb 1 Age >65 2 Risk Factors >3 or Hx ASHD 2 Troponin Normal limit 0 Total 7 I personally scribed for SALAZAR BOSTON MD ([email or web address]) on 11/20/24 at 09:37. Electronically submitted by Zak Garay ([email or web address]). SALAZAR BOSTON MD Nov 20, 2024 09:37
--- NOTE | 2024-11-20 10:00 | DVH ---
EXAM: XY CHEST PORTABLE Indication: left arm pain Technique: Single frontal view of the chest was obtained Comparison: XY CHEST PORTABLE on DOS: 08/26/24, XY CHEST PORTABLE on DOS: 06/02/23 FINDINGS: Lines and Tubes: Right tunneled dialysis catheter tip projects over the cavoatrial junction. Lungs: No focal consolidation. Pleura: No effusion. No pneumothorax. Cardiomediastinal contours: Cardiomegaly. Bones: No acute osseous abnormality. IMPRESSION: No acute cardiopulmonary disease.
[2024-11-20 10:10] LABS: Basophils # (auto) 0 10 ^3/uL (0-0.2); Basophils % (auto) 0.6 % (0.0-2.0); Eosinophils # (auto) 0.1 10 ^3/uL (0-0.8); Eosinophils % (auto) 0.9 % (0.0-7.0); Hematocrit 26.5 % (36.0-46.0); Hemoglobin 9.1 g/dL (12.2-16.2); Lymphocytes # (auto) 0.9 10 ^3/uL (0.4-5.4); Lymphocytes % (auto) 15.7 % (10.0-50.0); Mean Corpuscular Hemoglobin 32.2 pg (28.0-32.0); Mean Corpuscular Hgb Conc. 34.4 g/dL (32.0-36.0); Mean Corpuscular Volume 93.7 fL (80.0-100.0); Monocytes # (auto) 0.5 10 ^3/uL (0-1.3); Monocytes % (auto) 8.1 % (0.0-12.0); Neutrophils # (auto) 4.4 10 ^3/uL (1.6-8.6); Neutrophils % (auto) 74.7 % (37.0-80.0); Platelet Count (auto) 222 10^3/uL (140-450); Red Blood Cells 2.83 10^6/uL (4.0-5.20); Red Cell Distribution Width 13.4 % (11.8-14.3)
[2024-11-20 10:21] LABS: Chloride 103 mmol/L (98-107); Sodium 140 mmol/L (136-145)
[2024-11-20 10:22] LABS: Anion Gap 8 (5-15); Carbon Dioxide 29 mmol/L (20-31)
[2024-11-20 10:23] LABS: Calcium 9.1 mg/dL (8.7-10.4)
[2024-11-20 10:28] LABS: BUN/Creatinine Ratio 7.7 (10.0-20.0); Blood Urea Nitrogen 18 mg/dL (9-23); Glucose 84 mg/dL (74-106)
[2024-11-20] MEDS: HYDROcodone-ACET 5/325MG TAB PO ONE (10:30)
[2024-11-20 10:44] LABS: Potassium 3.4 mmol/L (3.5-5.1)
--- NOTE | 2024-11-20 10:46 | DVH ---
Left UPPER EXTREMITY VENOUS DOPPLER CLINICAL HISTORY: r/o LUE DVT , LUE PAIN TECHNIQUE: [Technique] Upper extremity venous Doppler study was performed. Comparison: US LT UPPER DVT on DOS: 08/27/24 FINDINGS: [Findings] The left internal jugular, subclavian, axillary, brachial, basilic, cephalic, radial and ulnar veins appear patent with normal augmentation, phasicity, compressibility and flow. There is a left upper ex tremity AV fistula between the cephalic vein and brachial artery. IMPRESSION: 1. No sonographic evidence of DVT in the left upper extremity. HS:Y
[2024-11-20] MEDS: ASPirin 325 MG TAB PO ONE (12:57)
[2024-11-20] MEDS ORDERED: HYDROcodone-ACET 5/325MG TAB PO PRN (15:15)
[2024-11-20] MEDS ORDERED: MORPHINE SULFATE INJ 2 MG/ml SYRG IV PRN ×2 (15:15)
[2024-11-20] MEDS ORDERED: NITROGLYCERIN 0.4 MG SL TAB SL PRN (15:15)
[2024-11-20] MEDS: ENOXAPARIN SOD 30 MG/0.3 ML SYRINGE SC SCH (15:34)
[2024-11-20 20:40] VITALS: BP 145/55; PULSE 67; RESP 19; TEMP 101; O2SAT 96
[2024-11-20] MEDS ORDERED: DEXTROSE (50%) 50ML SYRG IV PRN (22:15)
[2024-11-20 23:29] VITALS: TEMP 98
[2024-11-21] VITALS (10 sets, daily range): BP systolic 125–148; BP diastolic 47–68; PULSE 68–83; RESP 16–17; TEMP 98.4–99.9; O2SAT 91–97
[2024-11-21] MEDS: ONDANSETRON HCL 4 MG/2 ML VIAL IV PRN (00:18)
--- NOTE | 2024-11-21 03:11 | DVHHP2 ---
LUIZA MACKEY FIRE LIEUTENANT 11/21/24 0311: History of Present Illness Reason for Visit: Left arm pain History of Present Illness 68-year-old female past medical history of ERD on HD Presents with complaints of left arm pain while receiving dialysis. Patient recently had Fistula placed in June. States she has been experiencing numbness And had some bumps that developed In the left forearm. At this time patient denies shortness of breath, chest pain, nausea, vomiting. Cardiovascular: HTN Renal/: Chronic renal failure Smoke: No ALCOHOL: none Drugs: None Lives: with Family Review of Systems Constitutional: No: Fever, Chills, Sweats, Weakness, Malaise, Other Eyes: No: Pain, Vision change, Conjunctivae inflammation, Eyelid inflammation, Other, Redness ENT: No: Ear pain, Ear discharge, Nose pain, Nose discharge, Nose congestion, Mouth pain, Mouth swelling, Throat pain, Throat swelling, Other Respiratory: No: Cough, Dry, Shortness of breath, SOB with excertion, Wheezing, Hemoptysis, Pleuritic Pain, Sputum, Wheezing, Other Cardiovascular: No: Chest Pain, Palpitations, Orthopnea, Paroxysmal Noc. Dyspnea, Edema, Lt Headedness, Other Genitourinary: No Dysuria, No Frequency, No Incontinence, No Hematuria, No Retention, No Other Musculoskeletal: arm pain; No: other, neck pain, shoulder pain, back pain, hand pain, leg pain, foot pain Skin: No: Rash, Lesions, Jaundice, Bruising, Other Neurological: No: Weakness, Numbness, Incoordination, Change in speech, Confusion, Seizures, Other Allergies: Coded Allergies: NO KNOWN ALLERGIES (Unverified , 06/29/11) Medications Current Medications Medications Dose Ordered Sig/Linda Route Start Time Stop Time Status Last Admin Dose Admin Acetaminophen/ Hydrocodone Bitart 1 tab Q4HP PRN PO 11/20/24 15:15 Ondansetron HCl 4 mg Q4HP PRN IV 11/20/24 15:15 11/21/24 00:18 4 MG Acetaminophen 650 mg Q6HP PRN PO 11/20/24 15:15 Morphine Sulfate 2 mg Q4HPRN PRN IV 11/20/24 15:15 Enoxaparin Sodium 30 mg DAILY SC 11/20/24 15:15 11/20/24 15:34 30 MG Nitroglycerin 0.4 mg Q5MINP PRN SL 11/20/24 15:15 Morphine Sulfate 2 mg Q30M PRN IV 11/20/24 15:15 Diagnostic Test (Pha) 1 strip ACHS 11/21/24 07:00 Insulin Human Regular ACHS SC 11/21/24 07:00 Dextrose 50 ml UD PRN IV 11/20/24 22:15 Exam Vital Signs Vital Signs Date Time Temp Pulse Resp B/P (MAP) Pulse Ox O2 Delivery O2 Flow Rate FiO2 11/20/24 23:29 98.0 98.0 11/20/24 20:40 67 19 96 Nasal Cannula* 2 28 11/20/24 20:40 145/55 (85) General Appearance: Alert, Oriented X3, Cooperative, No acute distress HEENT: Atraumatic, PERRLA, EOMI Respiratory: Clear to auscultation, Normal air movement Cardiovascular: Regular rate, Normal S1, Normal S2 Abdominal: Normal bowel sounds, Soft, No tenderness Extremities: No clubbing, No cyanosis, No edema Skin: No rashes, No breakdown Neuro: Normal gait, Normal speech, Strength at 5/5 X4 ext Psych/Mental Status: Mental status NL, Mood NL Labs/Xrays Labs Test 11/20/24 22:01 11/20/24 13:15 11/20/24 09:55 Range/Units POC Glucose 111 H 70-106 mg/dl Troponin I High Sensitivity 25 </=34 ng/L White Blood Count 6.0 4.4-10.8 10^3/uL Red Blood Count 2.83 L 4.0-5.20 10^6/uL Hemoglobin 9.1 L 12.2-16.2 g/dL Hematocrit 26.5 L 36.0-46.0 % Mean Corpuscular Volume 93.7 80.0-100.0 fL Mean Corpuscular Hemoglobin 32.2 H 28.0-32.0 pg Mean Corpuscular Hemoglobin Concent 34.4 32.0-36.0 g/dL Red Cell Distribution Width 13.4 11.8-14.3 % Platelet Count 222 140-450 10^3/uL Mean Platelet Volume 7.7 6.9-10.8 fL Neutrophils (%) (Auto) 74.7 37.0-80.0 % Lymphocytes (%) (Auto) 15.7 10.0-50.0 % Monocytes (%) (Auto) 8.1 0.0-12.0 % Eosinophils (%) (Auto) 0.9 0.0-7.0 % Basophils (%) (Auto) 0.6 0.0-2.0 % Neutrophils # (Auto) 4.4 1.6-8.6 10 ^3/uL Lymphocytes # (Auto) 0.9 0.4-5.4 10 ^3/uL Monocytes # (Auto) 0.5 0-1.3 10 ^3/uL Eosinophils # (Auto) 0.1 0-0.8 10 ^3/uL Basophils # (Auto) 0 0-0.2 10 ^3/uL Nucleated Red Blood Cells 0.0 % Sodium Level 140 136-145 mmol/L Potassium Level 3.4 L 3.5-5.1 mmol/L Chloride Level 103 98-107 mmol/L Carbon Dioxide Level 29 20-31 mmol/L Anion Gap 8 5-15 Blood Urea Nitrogen 18 9-23 mg/dL Creatinine 2.33 H 0.550-1.02 mg/dL Glomerular Filtration Rate Calc 22 >90 mL/min BUN/Creatinine Ratio 7.7 L 10.0-20.0 Serum Glucose 84 74-106 mg/dL Calcium Level 9.1 8.7-10.4 mg/dL Assessment/Plan Assessment/Plan Left arm pain ACS r/o ESRD on HD DM Plan Admit telemetry Cardiology consult. Echocardiogram. As needed at [facility] for optimal BP management. Will continue home medication after medication reconciliation as been completed. Nephrology consult. Monitor BMP. Trend BUN/creatinine Blood glucose checks ACHS with regular insulin sliding scale coverage for optimal glycemic management. GI PPX Protonix / DVT PPX heparin SQ Plan discussed with: Patient My Orders Orders - LUIZA MACKEY NP Procedure Category Date Status Time * Cardiology Consult CONS 11/21/24 Transmitted 00:24 *[facility] CONS 11/21/24 Transmitted -[facility] 00:24 Date of Service: Nov 21, 2024 Billing Provider: KELLY PERDOMO MD Common Visit Codes: NOT BILLABLE KELLY PERDOMO MD 11/21/24 1608: Review of Systems Allergies: Coded Allergies: NO KNOWN ALLERGIES (Unverified , 06/29/11) Additional Comments Additional Comments Additional Comments 68-year-old female with a known history of diabetes mellitus type 2, hypertension, dyslipidemia, end-stage renal disease on hemodialysis initially presented to the hospital with left arm pain and some chest heaviness found to have 1. Left arm pain and chest pain rule out acute AL 2. End-stage renal disease on hemodialysis 3. Hypertension 4. Diabetes mellitus type 2 5. Dyslipidemia -2D echo, cardiology consultation -physical therapy evaluation and treatment -discharge plan. LUIZA MACKEY NP Nov 21, 2024 03:11 KELLY PERDOMO MD Nov 21, 2024 16:08
[2024-11-21] MEDS: ACCU-CHEK COMFORT CURVE STRIP VI SCH (06:05)
[2024-11-21] MEDS: InsuLIN REG 1unit/0.01ml Soln (100units/ml) SC SCH (06:05)
[2024-11-21 06:34] LABS: Basophils # (auto) 0 10 ^3/uL (0-0.2); Basophils % (auto) 0.3 % (0.0-2.0); Eosinophils # (auto) 0 10 ^3/uL (0-0.8); Eosinophils % (auto) 0.3 % (0.0-7.0); Hematocrit 26.1 % (36.0-46.0); Lymphocytes % (auto) 17.4 % (10.0-50.0); Mean Corpuscular Hemoglobin 32.4 pg (28.0-32.0); Mean Corpuscular Hgb Conc. 34.4 g/dL (32.0-36.0); Mean Corpuscular Volume 94.3 fL (80.0-100.0); Monocytes # (auto) 0.6 10 ^3/uL (0-1.3); Monocytes % (auto) 11.3 % (0.0-12.0); Neutrophils % (auto) 70.7 % (37.0-80.0); Nucleated Red Blood Cells % 0.1 %; Platelet Count (auto) 208 10^3/uL (140-450); Red Blood Cells 2.77 10^6/uL (4.0-5.20); Red Cell Distribution Width 13.4 % (11.8-14.3); White Blood Cell 5.7 10^3/uL (4.4-10.8)
[2024-11-21 06:57] LABS: Albumin 3.8 g/dL (3.2-4.8); Anion Gap 9 (5-15); BUN/Creatinine Ratio 8.9 (10.0-20.0); Calcium 9.1 mg/dL (8.7-10.4); Carbon Dioxide 26 mmol/L (20-31); Chloride 101 mmol/L (98-107); Glucose 75 mg/dL (74-106); Potassium 4.2 mmol/L (3.5-5.1); Sodium 136 mmol/L (136-145); Total Protein 6.6 g/dL (5.7-8.2)
[2024-11-21 07:02] LABS: Alanine Aminotransferase 46 U/L (7-40); Alkaline Phosphatase 117 U/L (46-116); Aspartate Aminotransferase 47 U/L (13-40); Bilirubin, Total 0.3 mg/dL (0.2-1.0); Blood Urea Nitrogen 34 mg/dL (9-23)
--- NOTE | 2024-11-21 19:23 | DVHINCON2 ---
Date of service: Nov 21, 2024 Reason for Consultation esrd History of Present Illness 68 years old female with past medical history of ESRD on dialysis, hypertension, presented with chief complaints of pain of left arm associated with numbness after receiving dialysis patient has fistula placed recently on left arm she is following with vascular surgery as outpatient however she is currently being dialyzed via tunneled catheter right chest wall she denies any other complaints and states her pain has been better since hospitalization Past Medical History As Past Surgical History As per HPI Allergies: Coded Allergies: NO KNOWN ALLERGIES (Unverified , 06/29/11) Home Meds Active Scripts Pantoprazole Sodium Sesquihydr (Pantoprazole Sodium) 40 Mg Tab, 40 MG PO DAILY@BREAKFAST, #30 TAB Prov:SHANNON LOPEZ MD 08/28/24 Ondansetron Odt 4MG Tab (ZOFRAN PO) 4 Mg Tb, 4 MG PO Q8HPRN PRN, #20 TAB ODT TAB-DISSOLVE IN MOUTH, THEN SWALLOW Prov:SHANNON LOPEZ MD 08/28/24 Glipizide (Glipizide) 5 Mg Tab, 2.5 MG PO DAILY, #15 TAB Prov:MOHAMUD BRANNON MD 06/05/23 Reported Medications Linagliptin Base (TRADJENTA) 5 Mg Tab, 1 TAB PO DAILY 03/14/24 Amlodipine Besylate (Amlodipine Besylate) 5 Mg Tab, 1 TAB PO DAILY 03/14/24 Ferrous Sulfate (Ferrous Sulfate) 325 Mg Tab, 325 MG PO BIDWM for 30 Days, MG 03/13/24 Alendronate Sodium (Alendronate Sodium) 70 Mg Tab, 1 TAB PO QWEEKLY 06/06/23 Rosuvastatin Calcium (Rosuvastatin Calcium) 20 Mg Tab, 1 TAB PO DAILY 06/06/23 Ergocalciferol (Vitamin D) 50,000 Unit Cap, 1 CAP PO QWEEKLY 06/06/23 Current Medications Current Medications Medications (Trade) Dose Ordered Sig/Linda Route PRN Reason Start Time Stop Time Status Last Admin Diagnostic Test (Pha) (Accu-Chek Comfort Curve T) 1 strip ACHS 11/21/24 07:00 11/21/24 17:00 Insulin Human Regular (InsuLIN R) ACHS SC 11/21/24 07:00 Dextrose 50 ml UD PRN IV Blood Sugar LESS THAN 60 11/20/24 22:15 Family History: Bone cancer Review of Systems As documented in HPI H&P Exam Vital Signs/I&O Vital Sign Date Time Temp Pulse Resp B/P (MAP) Pulse Ox O2 Delivery O2 Flow Rate FiO2 11/21/24 17:00 99.0 68 17 125/59 (81) 94 99.0 11/21/24 08:00 Nasal Cannula* 2 28 Intake and Output 11/20/24 11/21/24 19:00 07:00 Intake Total 200 ml Balance 200 ml Intake Oral 200 ml Physical Exam General-not in any distress HEENT-normocephalic, no icterus, no pallor, neck supple Respiratory-fair air entry bilateral, no rhonchi, no wheeze [id number] heard, no murmurs appreciated Abdominal-soft, nontender, nondistended Musculoskeletal-no pedal edema, left arm AVF Genitourinary-deferred Neuro-awake alert oriented x3, Psychiatric-not agitated, cooperative, Labs/Diagnostic Data Labs/Diagnostic Data Laboratory Tests Test 11/21/24 17:46 11/21/24 11:32 11/21/24 06:08 11/21/24 06:03 Range/Units POC Glucose 96 99 77 70-106 mg/dl White Blood Count 5.7 4.4-10.8 10^3/uL Red Blood Count 2.77 L 4.0-5.20 10^6/uL Hemoglobin 9.0 L 12.2-16.2 g/dL Hematocrit 26.1 L 36.0-46.0 % Mean Corpuscular Volume 94.3 80.0-100.0 fL Mean Corpuscular Hemoglobin 32.4 H 28.0-32.0 pg Mean Corpuscular Hemoglobin Concent 34.4 32.0-36.0 g/dL Red Cell Distribution Width 13.4 11.8-14.3 % Platelet Count 208 140-450 10^3/uL Mean Platelet Volume 7.8 6.9-10.8 fL Neutrophils (%) (Auto) 70.7 37.0-80.0 % Lymphocytes (%) (Auto) 17.4 10.0-50.0 % Monocytes (%) (Auto) 11.3 0.0-12.0 % Eosinophils (%) (Auto) 0.3 0.0-7.0 % Basophils (%) (Auto) 0.3 0.0-2.0 % Neutrophils # (Auto) 4.0 1.6-8.6 10 ^3/uL Lymphocytes # (Auto) 1.0 0.4-5.4 10 ^3/uL Monocytes # (Auto) 0.6 0-1.3 10 ^3/uL Eosinophils # (Auto) 0 0-0.8 10 ^3/uL Basophils # (Auto) 0 0-0.2 10 ^3/uL Nucleated Red Blood Cells 0.1 % Sodium Level 136 136-145 mmol/L Potassium Level 4.2 3.5-5.1 mmol/L Chloride Level 101 98-107 mmol/L Carbon Dioxide Level 26 20-31 mmol/L Anion Gap 9 5-15 Blood Urea Nitrogen 34 #H 9-23 mg/dL Creatinine 3.80 #H 0.550-1.02 mg/dL Glomerular Filtration Rate Calc 12 >90 mL/min BUN/Creatinine Ratio 8.9 L 10.0-20.0 Serum Glucose 75 74-106 mg/dL Calcium Level 9.1 8.7-10.4 mg/dL Total Bilirubin 0.3 0.2-1.0 mg/dL Aspartate Amino Transferase (AST) 47 H 13-40 U/L Alanine Aminotransferase (ALT) 46 H 7-40 U/L Alkaline Phosphatase 117 H 46-116 U/L Total Protein 6.6 5.7-8.2 g/dL Albumin 3.8 3.2-4.8 g/dL Test 11/20/24 22:01 11/20/24 13:15 11/20/24 10:51 11/20/24 09:55 Range/Units POC Glucose 111 H 70-106 mg/dl Troponin I High Sensitivity 25 27 </=34 ng/L White Blood Count 6.0 4.4-10.8 10^3/uL Red Blood Count 2.83 L 4.0-5.20 10^6/uL Hemoglobin 9.1 L 12.2-16.2 g/dL Hematocrit 26.5 L 36.0-46.0 % Mean Corpuscular Volume 93.7 80.0-100.0 fL Mean Corpuscular Hemoglobin 32.2 H 28.0-32.0 pg Mean Corpuscular Hemoglobin Concent 34.4 32.0-36.0 g/dL Red Cell Distribution Width 13.4 11.8-14.3 % Platelet Count 222 140-450 10^3/uL Mean Platelet Volume 7.7 6.9-10.8 fL Neutrophils (%) (Auto) 74.7 37.0-80.0 % Lymphocytes (%) (Auto) 15.7 10.0-50.0 % Monocytes (%) (Auto) 8.1 0.0-12.0 % Eosinophils (%) (Auto) 0.9 0.0-7.0 % Basophils (%) (Auto) 0.6 0.0-2.0 % Neutrophils # (Auto) 4.4 1.6-8.6 10 ^3/uL Lymphocytes # (Auto) 0.9 0.4-5.4 10 ^3/uL Monocytes # (Auto) 0.5 0-1.3 10 ^3/uL Eosinophils # (Auto) 0.1 0-0.8 10 ^3/uL Basophils # (Auto) 0 0-0.2 10 ^3/uL Nucleated Red Blood Cells 0.0 % Sodium Level 140 136-145 mmol/L Potassium Level 3.4 L 3.5-5.1 mmol/L Chloride Level 103 98-107 mmol/L Carbon Dioxide Level 29 20-31 mmol/L Anion Gap 8 5-15 Blood Urea Nitrogen 18 9-23 mg/dL Creatinine 2.33 H 0.550-1.02 mg/dL Glomerular Filtration Rate Calc 22 >90 mL/min BUN/Creatinine Ratio 7.7 L 10.0-20.0 Serum Glucose 84 74-106 mg/dL Calcium Level 9.1 8.7-10.4 mg/dL Assessment ESRD on dialysis Left upper extremity pain and numbness Hypertension Recommendations Dialysis tomorrow versus sunday depending on staffing Vascular eval if available otherwise okay with vascular eval as outpatient No DVT on ultrasound Has CVC currently Plan discussed with: Patient GINNY DACOSTA MD Nov 21, 2024 19:23
[2024-11-21] MEDS: ACETAMINOPHEN 325 MG TAB PO PRN (21:24)
[2024-11-21] MEDS: guaiFENesin-DM 100/10mg/5ml SYR PO PRN (21:24)
[2024-11-22] VITALS (8 sets, daily range): BP systolic 129–145; BP diastolic 48–93; PULSE 68–87; RESP 17–20; TEMP 98.2–99.2; O2SAT 90–97
[2024-11-22] MEDS: SODIUM CHL 0.9% 1000 ML BAG XX ONE (07:00)
--- NOTE | 2024-11-22 08:17 | DVHPN2 ---
Progress Note Date Seen: Nov 22, 2024 Medical Necessity Reason Pt with a Central, PICC or Fol: No Subjective Patient reports: Other Review of Systems: MSK:Abnormal Objective vital signs Vital Sign Date Time Temp Pulse Resp B/P (MAP) Pulse Ox O2 Delivery O2 Flow Rate FiO2 11/22/24 05:00 98.9 81 18 129/55 (79) 93 98.9 11/21/24 20:00 Nasal Cannula* 2 28 Total Intake and Output 11/21/24 11/21/24 11/22/24 15:00 23:00 07:00 Intake Total 1725 ml 120 ml Balance 1725 ml 120 ml medications Current Medications Medications Dose Ordered Sig/Linda Route Start Time Stop Time Status Last Admin Dose Admin Acetaminophen/ Hydrocodone Bitart 1 tab Q4HP PRN PO 11/20/24 15:15 Ondansetron HCl 4 mg Q4HP PRN IV 11/20/24 15:15 11/21/24 20:57 4 MG Acetaminophen 650 mg Q6HP PRN PO 11/20/24 15:15 11/22/24 06:07 650 MG Morphine Sulfate 2 mg Q4HPRN PRN IV 11/20/24 15:15 Enoxaparin Sodium 30 mg DAILY SC 11/20/24 15:15 11/21/24 11:31 30 MG Nitroglycerin 0.4 mg Q5MINP PRN SL 11/20/24 15:15 Morphine Sulfate 2 mg Q30M PRN IV 11/20/24 15:15 Diagnostic Test (Pha) 1 strip ACHS 11/21/24 07:00 11/22/24 07:15 1 STRIP Insulin Human Regular ACHS SC 11/21/24 07:00 11/21/24 21:36 2 UNITS Dextrose 50 ml UD PRN IV 11/20/24 22:15 Guaifenesin/ Dextromethorphan 10 ml Q6HPRN PRN PO 11/21/24 20:45 11/21/24 21:24 10 ML Examination: GENERAL:Normal, HEENT:Normal, NECK:Normal, LUNGS:Normal, CVS:Normal, ABDOMEN:Normal, MSK:Normal, SKIN:Normal, NEURO:Normal, :Normal laboratory and microbiology Laboratory Tests 11/21/24 06:08 Test 11/21/24 06:08 Range/Units Serum Glucose 75 74-106 mg/dL Problem List/Assessment/Plan Problem List/Assessment/Plan ESRD on dialysis Left upper extremity pain and numbness Hypertension Recommendations Dialysis today versus sunday depending on staffing Vascular eval if available on weekend otherwise okay with vascular eval as outpatient No DVT on ultrasound Has CVC currently cardio eval pending Plan discussed with: Patient My Orders My Orders Orders - GINNY DACOSTA MD Procedure Category Date Status Time Consult CONS 11/21/24 Transmitted Vascular/Endovascular 19:22 Hemodialysis Orders ORDERS 11/22/24 Transmitted 07:00 Dialysis Nursing JOHNNY 11/22/24 In Process Message 07:00 Document Fluid Input JOHNNY 11/22/24 In Process And Outpu 07:00 Epoetin Nahum-Epbx PHA 11/22/24 In Process (Retacrit) 21:00 Acute Hepatitis Panel LAB 11/22/24 Logged 05:43 GINNY DACOSTA MD Nov 22, 2024 08:17
--- NOTE | 2024-11-22 16:44 | DVHPN2 ---
Subjective Overnight events noted. Patient denies any chest pain. Reviewed: Care Plan Changes from previous H/P or p: No Changes Eyes: No Pain, No Vision change, No Conjunctivae inflammation, No Eyelid inflammation, No Other, No Redness ENT: No Ear pain, No Ear discharge, No Nose pain, No Nose discharge, No Nose congestion, No Mouth pain, No Mouth swelling, No Throat pain, No Throat swelling, No Other Cardiovascular: No Chest Pain, No Palpitations, No Orthopnea, No Paroxysmal Noc. Dyspnea, No Edema, No Lt Headedness, No Other Respiratory: No Cough, No Dry, No Shortness of breath, No SOB with excertion, No Wheezing, No Hemoptysis, No Pleuritic Pain, No Sputum, No Other Genitourinary: No Dysuria, No Frequency, No Incontinence, No Hematuria, No Retention, No Other Musculoskeletal: No other, No neck pain, No shoulder pain; arm pain; No back pain, No hand pain, No leg pain, No foot pain Skin: No Rash, No Lesions, No Jaundice, No Bruising, No Other Objective Vitals Vital Signs Date Time Temp Pulse Resp B/P (MAP) Pulse Ox O2 Delivery O2 Flow Rate FiO2 11/22/24 13:00 98.4 69 18 145/93 (110) 97 98.4 11/22/24 08:00 Nasal Cannula* 2 28 Intake/Output Intake and Output 11/22/24 07:00 Intake Total 1845 ml Balance 1845 ml Intake Oral 1845 ml # Voids 6 Exam HEENT pupils are reactive Neck is supple CV is S1-S2 regular rate and rhythm Respiratory are clear GI positive bowel sound 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 Medications Current Medications Medications Dose Ordered Sig/Linda Route Start Time Stop Time Status Last Admin Dose Admin Acetaminophen/ Hydrocodone Bitart 1 tab Q4HP PRN PO 11/20/24 15:15 Ondansetron HCl 4 mg Q4HP PRN IV 11/20/24 15:15 11/21/24 20:57 4 MG Acetaminophen 650 mg Q6HP PRN PO 11/20/24 15:15 11/22/24 06:07 650 MG Morphine Sulfate 2 mg Q4HPRN PRN IV 11/20/24 15:15 Enoxaparin Sodium 30 mg DAILY SC 11/20/24 15:15 11/22/24 10:37 30 MG Nitroglycerin 0.4 mg Q5MINP PRN SL 11/20/24 15:15 Morphine Sulfate 2 mg Q30M PRN IV 11/20/24 15:15 Diagnostic Test (Pha) 1 strip ACHS 11/21/24 07:00 11/22/24 11:30 1 STRIP Insulin Human Regular ACHS SC 11/21/24 07:00 11/21/24 21:36 2 UNITS Dextrose 50 ml UD PRN IV 11/20/24 22:15 Guaifenesin/ Dextromethorphan 10 ml Q6HPRN PRN PO 11/21/24 20:45 11/21/24 21:24 10 ML Laboratory Results Laboratory Tests 11/21/24 06:08 Assessment/Plan Assessment/Plan 68-year-old female with a known history of diabetes mellitus type 2, hypertension, dyslipidemia, end-stage renal disease on hemodialysis initially presented to the hospital with left arm pain and some chest heaviness found to have 1. Left arm pain and chest pain rule out acute [place] 2. End-stage renal disease on hemodialysis 3. Hypertension 4. Diabetes mellitus type 2 5. Dyslipidemia -continue dialysis per renal, 2D echo, cardiology consultation. Physical therapy evaluation and treatment Discharge plan Plan discussed with: Patient, Other My Orders Orders - KELLY PERDOMO MD Procedure Category Date Status Time * Cardiology Consult CONS 11/22/24 Transmitted 15:50 Electrocardigram EKG 11/22/24 Logged 16:28 Date of Service: Nov 22, 2024 Billing Provider: KELLY PERDOMO MD Common Visit Codes: NOT BILLABLE KELLY PERDOMO MD Nov 22, 2024 16:44
[2024-11-22] MEDS: EPOETIN ALFA-EPBX 4,000 UNIT/ML VIAL SC ONE (22:03)
[2024-11-23] VITALS (7 sets, daily range): BP systolic 106–151; BP diastolic 40–75; PULSE 63–82; RESP 17–18; TEMP 98–99.5; O2SAT 94–99
--- NOTE | 2024-11-23 10:05 | DVHCONRES ---
Date Seen: Nov 23, 2024 Resident Creating Document: JOSEFINA GORDON Jr., MD Referring Physician Melani Reason for Consultation left arm pain History of Present Illness 68-year-old female past medical history of ERD on HD Presents with complaints of left arm pain while receiving dialysis. Patient recently had Fistula placed in June. States she has been experiencing numbness . At this time patient denies shortness of breath, chest pain, nausea, vomiting. Patient states during dialysis she occasionally develops left arm and hand pain. They have never used this fistula. It is a left brachiocephalic fistula. Procedure was performed by Dr. Durham. Patient is scheduled to have a revision in the next several weeks at [facility]. Past Medical History End-stage renal disease on dialysis, hypertension Past Surgical History Left AV fistula Family History: Bone cancer Social History Nonsmoker nondrinker Allergies: Coded Allergies: NO KNOWN ALLERGIES (Unverified , 06/29/11) Home Meds Active Scripts Pantoprazole Sodium Sesquihydr (Pantoprazole Sodium) 40 Mg Tab, 40 MG PO DAILY@BREAKFAST, #30 TAB Prov:SHANNON LOPEZ MD 08/28/24 Ondansetron Odt 4MG Tab (ZOFRAN PO) 4 Mg Tb, 4 MG PO Q8HPRN PRN, #20 TAB ODT TAB-DISSOLVE IN MOUTH, THEN SWALLOW Prov:SHANNON LOPEZ MD 08/28/24 Glipizide (Glipizide) 5 Mg Tab, 2.5 MG PO DAILY, #15 TAB Prov:MOHAMUD BRANNON MD 06/05/23 Reported Medications Linagliptin Base (TRADJENTA) 5 Mg Tab, 1 TAB PO DAILY 03/14/24 Amlodipine Besylate (Amlodipine Besylate) 5 Mg Tab, 1 TAB PO DAILY 03/14/24 Ferrous Sulfate (Ferrous Sulfate) 325 Mg Tab, 325 MG PO BIDWM for 30 Days, MG 03/13/24 Alendronate Sodium (Alendronate Sodium) 70 Mg Tab, 1 TAB PO QWEEKLY 06/06/23 Rosuvastatin Calcium (Rosuvastatin Calcium) 20 Mg Tab, 1 TAB PO DAILY 06/06/23 Ergocalciferol (Vitamin D) 50,000 Unit Cap, 1 CAP PO QWEEKLY 06/06/23 Vital Signs Vital Signs Date Time Temp Pulse Resp B/P (MAP) Pulse Ox O2 Delivery O2 Flow Rate FiO2 11/23/24 05:15 98.7 63 18 144/56 (85) 97 98.7 11/22/24 20:00 Nasal Cannula* 2 28 Physical Exam Head eyes ears nose and throat exam eyes are nonicteric conjunctiva pink neck supple no JVD no lymphadenopathy no carotid bruits lungs are clear to auscultation heart was regular rate and rhythm abdomen is soft and nontender with no pulsatile abdominal mass or bruits lower extremities palpable femoral pedal pulses bilaterally left upper arm has a brachiocephalic arteriovenous fistula. With a positive thrill and bruit there is mild dilation at the antecubital fossa. Her hand is warm and well perfused radial pulses palpable. Labs/Diagnostic Data Labs Test 11/23/24 05:49 11/22/24 08:30 11/21/24 06:08 11/20/24 13:15 Range/Units POC Glucose 96 70-106 mg/dl White Blood Count 5.7 4.4-10.8 10^3/uL Red Blood Count 2.77 L 4.0-5.20 10^6/uL Hemoglobin 9.0 L 12.2-16.2 g/dL Hematocrit 26.1 L 36.0-46.0 % Mean Corpuscular Volume 94.3 80.0-100.0 fL Mean Corpuscular Hemoglobin 32.4 H 28.0-32.0 pg Mean Corpuscular Hemoglobin Concent 34.4 32.0-36.0 g/dL Red Cell Distribution Width 13.4 11.8-14.3 % Platelet Count 208 140-450 10^3/uL Mean Platelet Volume 7.8 6.9-10.8 fL Neutrophils (%) (Auto) 70.7 37.0-80.0 % Lymphocytes (%) (Auto) 17.4 10.0-50.0 % Monocytes (%) (Auto) 11.3 0.0-12.0 % Eosinophils (%) (Auto) 0.3 0.0-7.0 % Basophils (%) (Auto) 0.3 0.0-2.0 % Neutrophils # (Auto) 4.0 1.6-8.6 10 ^3/uL Lymphocytes # (Auto) 1.0 0.4-5.4 10 ^3/uL Monocytes # (Auto) 0.6 0-1.3 10 ^3/uL Eosinophils # (Auto) 0 0-0.8 10 ^3/uL Basophils # (Auto) 0 0-0.2 10 ^3/uL Nucleated Red Blood Cells 0.1 % Sodium Level 136 136-145 mmol/L Potassium Level 4.2 3.5-5.1 mmol/L Chloride Level 101 98-107 mmol/L Carbon Dioxide Level 26 20-31 mmol/L Anion Gap 9 5-15 Blood Urea Nitrogen 34 #H 9-23 mg/dL Creatinine 3.80 #H 0.550-1.02 mg/dL Glomerular Filtration Rate Calc 12 >90 mL/min BUN/Creatinine Ratio 8.9 L 10.0-20.0 Serum Glucose 75 74-106 mg/dL Calcium Level 9.1 8.7-10.4 mg/dL Total Bilirubin 0.3 0.2-1.0 mg/dL Aspartate Amino Transferase (AST) 47 H 13-40 U/L Alanine Aminotransferase (ALT) 46 H 7-40 U/L Alkaline Phosphatase 117 H 46-116 U/L Total Protein 6.6 5.7-8.2 g/dL Albumin 3.8 3.2-4.8 g/dL Troponin I High Sensitivity 25 </=34 ng/L Assessment Patient presents with left arm pain. Av fistula is working properly. She is scheduled for revision with her primary vascular surgeon Dr. Durham in the near future. No further workup needed from a vascular standpoint. Rule out other sources of arm pain including cardiac. Plan/Recommendation Patient presents with left arm pain. Av fistula is working properly. She is scheduled for revision with her primary vascular surgeon Dr. Durham in the near future. No further workup needed from a vascular standpoint. Rule out other sources of arm pain including cardiac. Plan discussed with: Patient JOSEFINA GORDON Jr., MD Nov 23, 2024 10:05
--- NOTE | 2024-11-23 11:38 | ECG ---
[facility] Test Date: 2024-11-22 Test Time: 16:16:25 Pat Name: TERA RODRIGUEZ Department: Respiratoy Room: [address] [place] [address] 7 Gender: F Surgical Manager: JADEN : 1955 Requested By: KELLY PERDOMO Order Number: [id number] Reading MD: Kristin Ambrose Measurements Intervals [place] Rate: 64 P: 61 MD: 139 QRS: 0 QRSD: 101 T: 52 QT: 455 QTc: 470 Interpretive Statements Sinus rhythm LVH with secondary repolarization abnormality Baseline wander in lead(s) V4 Electronically Signed On 11-24-2024 10:29:48 PST by Kristin Ambrose Please click the below link to view image of tracing.
--- NOTE | 2024-11-23 12:38 | DVHPN2 ---
Progress Note Date Seen: Nov 23, 2024 Medical Necessity Reason Pt with a Central, PICC or Fol: No Subjective Patient reports: No new complaints Review of Systems: HEENT:Normal, CVS:Normal, RESPIRATORY:Normal, GI:Normal, :Normal, MSK:Abnormal, NEURO:Normal Objective vital signs Vital Sign Date Time Temp Pulse Resp B/P (MAP) Pulse Ox O2 Delivery O2 Flow Rate FiO2 11/23/24 09:00 98.7 69 17 151/49 (83) 97 98.7 11/23/24 08:00 Nasal Cannula* 2 28 Total Intake and Output 11/22/24 11/22/24 11/23/24 14:59 22:59 06:59 Intake Total 344 ml 320 ml 450 ml Balance 344 ml 320 ml 450 ml medications Current Medications Medications Dose Ordered Sig/Linda Route Start Time Stop Time Status Last Admin Dose Admin Acetaminophen/ Hydrocodone Bitart 1 tab Q4HP PRN PO 11/20/24 15:15 Ondansetron HCl 4 mg Q4HP PRN IV 11/20/24 15:15 11/21/24 20:57 4 MG Acetaminophen 650 mg Q6HP PRN PO 11/20/24 15:15 11/22/24 06:07 650 MG Morphine Sulfate 2 mg Q4HPRN PRN IV 11/20/24 15:15 Enoxaparin Sodium 30 mg DAILY SC 11/20/24 15:15 11/23/24 10:00 30 MG Nitroglycerin 0.4 mg Q5MINP PRN SL 11/20/24 15:15 Morphine Sulfate 2 mg Q30M PRN IV 11/20/24 15:15 Diagnostic Test (Pha) 1 strip ACHS 11/21/24 07:00 11/23/24 06:01 1 STRIP Insulin Human Regular ACHS SC 11/21/24 07:00 11/21/24 21:36 2 UNITS Dextrose 50 ml UD PRN IV 11/20/24 22:15 Guaifenesin/ Dextromethorphan 10 ml Q6HPRN PRN PO 11/21/24 20:45 11/21/24 21:24 10 ML Examination: GENERAL:Normal, HEENT:Normal, NECK:Normal, LUNGS:Normal, CVS:Normal, ABDOMEN:Normal, MSK:Normal, SKIN:Normal, NEURO:Normal, :Normal laboratory and microbiology Laboratory Tests 11/21/24 06:08 Test 11/21/24 06:08 Range/Units Serum Glucose 75 74-106 mg/dL Problem List/Assessment/Plan Problem List/Assessment/Plan ESRD on dialysis Left upper extremity pain and numbness pending revision of AVF Hypertension Recommendations Next Dialysis Sunday Vascular eval noted No DVT on ultrasound Has CVC currently cardio eval pending Plan discussed with: Patient GINNY DACOSTA MD Nov 23, 2024 12:38
--- NOTE | 2024-11-23 13:57 | DVHINCON2 ---
Date of service: Nov 23, 2024 History of Present Illness 68-year-old female past medical history of ERD on HD Presents with complaints of left arm pain while receiving dialysis. Patient recently had Fistula placed in June. States she has been experiencing numbness And had some bumps that developed In the left forearm. At this time patient denies shortness of breath, chest pain, nausea, vomiting. Cardiovascular: HTN Renal/: Chronic renal failure Smoke: No ALCOHOL: none Drugs: None Lives: with Family Past Medical History reviewed Family History: Bone cancer Allergies: Coded Allergies: NO KNOWN ALLERGIES (Unverified , 06/29/11) Home Meds Active Scripts Pantoprazole Sodium Sesquihydr (Pantoprazole Sodium) 40 Mg Tab, 40 MG PO DAILY@BREAKFAST, #30 TAB Prov:SHANNON LOPEZ MD 08/28/24 Ondansetron Odt 4MG Tab (ZOFRAN PO) 4 Mg Tb, 4 MG PO Q8HPRN PRN, #20 TAB ODT TAB-DISSOLVE IN MOUTH, THEN SWALLOW Prov:SHANNON LOPEZ MD 08/28/24 Glipizide (Glipizide) 5 Mg Tab, 2.5 MG PO DAILY, #15 TAB Prov:MOHAMUD BRANNON MD 06/05/23 Reported Medications Linagliptin Base (TRADJENTA) 5 Mg Tab, 1 TAB PO DAILY 03/14/24 Amlodipine Besylate (Amlodipine Besylate) 5 Mg Tab, 1 TAB PO DAILY 03/14/24 Ferrous Sulfate (Ferrous Sulfate) 325 Mg Tab, 325 MG PO BIDWM for 30 Days, MG 03/13/24 Alendronate Sodium (Alendronate Sodium) 70 Mg Tab, 1 TAB PO QWEEKLY 06/06/23 Rosuvastatin Calcium (Rosuvastatin Calcium) 20 Mg Tab, 1 TAB PO DAILY 06/06/23 Ergocalciferol (Vitamin D) 50,000 Unit Cap, 1 CAP PO QWEEKLY 06/06/23 Review of Systems 10 pt ros otherwise negative Vital Signs Vital Signs Date Time Temp Pulse Resp B/P (MAP) Pulse Ox O2 Delivery O2 Flow Rate FiO2 11/23/24 13:29 99.5 68 17 126/48 (74) 94 99.5 11/23/24 08:00 Nasal Cannula* 2 28 Physical Exam nad s1 s2 rrr ctab soft nt/nd no edema Labs/Diagnostic Data Labs Test 11/23/24 12:41 11/22/24 08:30 11/21/24 06:08 11/20/24 13:15 Range/Units POC Glucose 124 H 70-106 mg/dl White Blood Count 5.7 4.4-10.8 10^3/uL Red Blood Count 2.77 L 4.0-5.20 10^6/uL Hemoglobin 9.0 L 12.2-16.2 g/dL Hematocrit 26.1 L 36.0-46.0 % Mean Corpuscular Volume 94.3 80.0-100.0 fL Mean Corpuscular Hemoglobin 32.4 H 28.0-32.0 pg Mean Corpuscular Hemoglobin Concent 34.4 32.0-36.0 g/dL Red Cell Distribution Width 13.4 11.8-14.3 % Platelet Count 208 140-450 10^3/uL Mean Platelet Volume 7.8 6.9-10.8 fL Neutrophils (%) (Auto) 70.7 37.0-80.0 % Lymphocytes (%) (Auto) 17.4 10.0-50.0 % Monocytes (%) (Auto) 11.3 0.0-12.0 % Eosinophils (%) (Auto) 0.3 0.0-7.0 % Basophils (%) (Auto) 0.3 0.0-2.0 % Neutrophils # (Auto) 4.0 1.6-8.6 10 ^3/uL Lymphocytes # (Auto) 1.0 0.4-5.4 10 ^3/uL Monocytes # (Auto) 0.6 0-1.3 10 ^3/uL Eosinophils # (Auto) 0 0-0.8 10 ^3/uL Basophils # (Auto) 0 0-0.2 10 ^3/uL Nucleated Red Blood Cells 0.1 % Sodium Level 136 136-145 mmol/L Potassium Level 4.2 3.5-5.1 mmol/L Chloride Level 101 98-107 mmol/L Carbon Dioxide Level 26 20-31 mmol/L Anion Gap 9 5-15 Blood Urea Nitrogen 34 #H 9-23 mg/dL Creatinine 3.80 #H 0.550-1.02 mg/dL Glomerular Filtration Rate Calc 12 >90 mL/min BUN/Creatinine Ratio 8.9 L 10.0-20.0 Serum Glucose 75 74-106 mg/dL Calcium Level 9.1 8.7-10.4 mg/dL Total Bilirubin 0.3 0.2-1.0 mg/dL Aspartate Amino Transferase (AST) 47 H 13-40 U/L Alanine Aminotransferase (ALT) 46 H 7-40 U/L Alkaline Phosphatase 117 H 46-116 U/L Total Protein 6.6 5.7-8.2 g/dL Albumin 3.8 3.2-4.8 g/dL Troponin I High Sensitivity 25 </=34 ng/L Assessment arm pain hx of AVF esrd on hd htn HL Plan/Recommendation acs ruled out symptoms clearly at site of AVF, fu with her outpt vascular surgeon high risk for cv disease in future given esrd , asa, statin outpt eval echo Plan discussed with: Patient SIERRA MCADAMS MD Nov 23, 2024 13:57
--- NOTE | 2024-11-23 16:18 | DVHPN2 ---
Subjective Overnight events noted. Patient denies any chest pain, patient desaturated to 72% on exertion. D-dimer is elevated, V/Q scan will be ordered. Reviewed: Care Plan Changes from previous H/P or p: No Changes Eyes: No Pain, No Vision change, No Conjunctivae inflammation, No Eyelid inflammation, No Other, No Redness ENT: No Ear pain, No Ear discharge, No Nose pain, No Nose discharge, No Nose congestion, No Mouth pain, No Mouth swelling, No Throat pain, No Throat swelling, No Other Cardiovascular: No Chest Pain, No Palpitations, No Orthopnea, No Paroxysmal Noc. Dyspnea, No Edema, No Lt Headedness, No Other Respiratory: No Cough, No Dry, No Shortness of breath, No SOB with excertion, No Wheezing, No Hemoptysis, No Pleuritic Pain, No Sputum, No Other Genitourinary: No Dysuria, No Frequency, No Incontinence, No Hematuria, No Retention, No Other Musculoskeletal: No other, No neck pain, No shoulder pain; arm pain; No back pain, No hand pain, No leg pain, No foot pain Skin: No Rash, No Lesions, No Jaundice, No Bruising, No Other Objective Vitals Vital Signs Date Time Temp Pulse Resp B/P (MAP) Pulse Ox O2 Delivery O2 Flow Rate FiO2 11/23/24 13:29 99.5 68 17 126/48 (74) 94 99.5 11/23/24 08:00 Nasal Cannula* 2 28 Intake/Output Intake and Output 11/23/24 07:00 Intake Total 1114 ml Balance 1114 ml Intake Oral 1114 ml # Voids 4 # Bowel Movements 4 Exam HEENT pupils are reactive Neck is supple CV is S1-S2 regular rate and rhythm Respiratory are clear GI positive bowel sound 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 Current Medications Medications Dose Ordered Sig/Linda Route Start Time Stop Time Status Last Admin Dose Admin Acetaminophen/ Hydrocodone Bitart 1 tab Q4HP PRN PO 11/20/24 15:15 Ondansetron HCl 4 mg Q4HP PRN IV 11/20/24 15:15 11/21/24 20:57 4 MG Acetaminophen 650 mg Q6HP PRN PO 11/20/24 15:15 11/22/24 06:07 650 MG Morphine Sulfate 2 mg Q4HPRN PRN IV 11/20/24 15:15 Enoxaparin Sodium 30 mg DAILY SC 11/20/24 15:15 11/23/24 10:00 30 MG Nitroglycerin 0.4 mg Q5MINP PRN SL 11/20/24 15:15 Morphine Sulfate 2 mg Q30M PRN IV 11/20/24 15:15 Diagnostic Test (Pha) 1 strip ACHS 11/21/24 07:00 11/23/24 11:30 1 STRIP Insulin Human Regular ACHS SC 11/21/24 07:00 11/21/24 21:36 2 UNITS Dextrose 50 ml UD PRN IV 11/20/24 22:15 Guaifenesin/ Dextromethorphan 10 ml Q6HPRN PRN PO 11/21/24 20:45 11/21/24 21:24 10 ML Laboratory Results Laboratory Tests 11/21/24 06:08 Coagulation Test 11/23/24 14:58 D-Dimer, Quantitative 0.93 mg/L FEU (0.0-0.49) H Assessment/Plan Assessment/Plan 68-year-old female with a known history of diabetes mellitus type 2, hypertension, dyslipidemia, end-stage renal disease on hemodialysis initially presented to the hospital with left arm pain and some chest heaviness found to have 1. Left arm pain and chest pain ruled out acute [place] 2. End-stage renal disease on hemodialysis 3. Hypertension 4. Diabetes mellitus type 2 5. Dyslipidemia 6. Acute hypoxic respiratory failure with elevated D-dimer, rule out PE -V/Q scan normal pulmonary consultation -continue dialysis per renal, 2D echo, cardiology consultation. Physical therapy evaluation and treatment Discharge plan Plan discussed with: Patient, Other Date of Service: Nov 23, 2024 Billing Provider: KELLY PERDOMO MD Common Visit Codes: NOT BILLABLE EKLLY PERDOMO MD Nov 23, 2024 16:18
--- NOTE | 2024-11-23 18:50 | DVHSR ---
APPROVED REPORT DIMENSIONS LVDd4.8 (3.8-5.7cm)LA (2D)4.6 (1.9-4.0cm)Aortic Root3.3 (2.0-3.7cm) LVDs3.3 (2.5-4.0cm)LA (MM) (1.9-4.0cm)Aortic Cusp Exc1.5 (1.5-2.0cm) EF (%) 58.0 (55-70%)Rt. Atrium (1.9-4.0cm)Asc. Aorta cm IVSd1.3 (0.7-1.1cm)RV (D) (1.8-2.4cm) PWd1.5 (0.7-1.1cm) Mitral Valve MitralMitral Stenosis E wave1.09m/sMV Mean GR.3mmHg A wave1.00m/sMV Peak GR.39mmHg E/A ratio1.12D MVAcm2 DECEL [id number] 1/2 [id number] IVRTmsDop MVA2.34cm2 Aortic Valve Aortic ValveAortic Stenosis V11.10m/Dara Mean GR.9mmHg V22.07m/Dara Peak GR.17mmHg LVOT Diameter2.2 (1.8-2.4cm)Doppler AVA2.02cm2 Pulmonic Valve V21.00m/s Tricuspid Valve TR Velocity2.56m/s [id number] Conclusion Sinus rhythm LAE, LVH. Aortic root enlargement. Mild Aortic sclerosis Normal LV function with EF of 60 % and normal RV function. Mild TR No PE, masses or vegetations noted.
--- NOTE | 2024-11-23 19:05 | DVHINCON2 ---
Date of service: Nov 23, 2024 Referring Physician Jimmy Polo MD Reason for Consultation acute hypoxic respiratory failure. History of Present Illness A 68-year-old woman with past medical history of ESRD on hemodialysis and hypertension who presented to ED on 11/20/24 with complaints of left arm pain while receiving dialysis. Patient recently had fistula placed in June 2024. Patient reported she has been experiencing numbness and noted some bumps that developed In the left forearm. At time of evaluation in ED, she denied shortness of breath, chest pain, nausea, vomiting or other associated symptoms. Patient was admitted for further care and pulmonary consultation is requested for evaluation and management of acute hypoxic respiratory failure. Review of Systems: 14-point review of systems negative unless otherwise noted above. Past Medical History: ESRD on hemodialysis and hypertension Past Surgical History: Left AV fistula Medications: Reviewed. Allergies: No known drug allergies. Family History: Bone cancer. Social History: Nonsmoker. No alcohol or illicit drug use. Family History: Bone cancer Allergies: Coded Allergies: NO KNOWN ALLERGIES (Unverified , 06/29/11) Home Meds Active Scripts Pantoprazole Sodium Sesquihydr (Pantoprazole Sodium) 40 Mg Tab, 40 MG PO DAILY@BREAKFAST, #30 TAB Prov:SHANNON LOPEZ MD 08/28/24 Ondansetron Odt 4MG Tab (ZOFRAN PO) 4 Mg Tb, 4 MG PO Q8HPRN PRN, #20 TAB ODT TAB-DISSOLVE IN MOUTH, THEN SWALLOW Prov:SHANNON LOPEZ MD 08/28/24 Glipizide (Glipizide) 5 Mg Tab, 2.5 MG PO DAILY, #15 TAB Prov:MOHAMUD BRANNON MD 06/05/23 Reported Medications Linagliptin Base (TRADJENTA) 5 Mg Tab, 1 TAB PO DAILY 03/14/24 Amlodipine Besylate (Amlodipine Besylate) 5 Mg Tab, 1 TAB PO DAILY 03/14/24 Ferrous Sulfate (Ferrous Sulfate) 325 Mg Tab, 325 MG PO BIDWM for 30 Days, MG 03/13/24 Alendronate Sodium (Alendronate Sodium) 70 Mg Tab, 1 TAB PO QWEEKLY 06/06/23 Rosuvastatin Calcium (Rosuvastatin Calcium) 20 Mg Tab, 1 TAB PO DAILY 06/06/23 Ergocalciferol (Vitamin D) 50,000 Unit Cap, 1 CAP PO QWEEKLY 06/06/23 Current Medications Current Medications Medications (Trade) Dose Ordered Sig/Linda Route PRN Reason Start Time Stop Time Status Last Admin Enoxaparin Sodium (Lovenox) 80 mg DAILY SC 11/23/24 22:00 Vital Signs Vital Signs Date Time Temp Pulse Resp B/P (MAP) Pulse Ox O2 Delivery O2 Flow Rate FiO2 11/23/24 17:17 99.0 67 17 106/40 (62) 94 99.0 11/23/24 08:00 Nasal Cannula* 2 28 Physical Exam Gen.: Patient lying in bed in no apparent distress. On supplemental oxygen. Head: Normocephalic, atraumatic. Eyes: EOMI/PERRLA. Ears: Normal hearing. Normal anatomy. Neck/trachea: Trachea midline, supple. Nose: Normal external anatomy. Mouth: Moist mucous membranes. Chest: Decreased air entry bilaterally. No wheezing or rhonchi. Cardiovascular: Positive S1, positive S2. Regular rate and rhythm. Abdomen: Positive bowel sounds in all 4 quadrants. Soft, non-tender, non- distended. : Deferred. Rectal: Deferred. Skin: Warm, dry. Intact. Extremities: 2+ radial pulses bilaterally. No lower extremity edema. Neuro: Awake, alert, oriented x3. No gross motor or sensory deficits. Cranial nerves II through XII intact. Gait not assessed. Labs/Diagnostic Data Labs Test 11/23/24 18:11 11/23/24 14:58 11/22/24 08:30 11/21/24 06:08 Range/Units POC Glucose 112 H 70-106 mg/dl D-Dimer, Quantitative 0.93 H 0.0-0.49 mg/L FEU White Blood Count 5.7 4.4-10.8 10^3/uL Red Blood Count 2.77 L 4.0-5.20 10^6/uL Hemoglobin 9.0 L 12.2-16.2 g/dL Hematocrit 26.1 L 36.0-46.0 % Mean Corpuscular Volume 94.3 80.0-100.0 fL Mean Corpuscular Hemoglobin 32.4 H 28.0-32.0 pg Mean Corpuscular Hemoglobin Concent 34.4 32.0-36.0 g/dL Red Cell Distribution Width 13.4 11.8-14.3 % Platelet Count 208 140-450 10^3/uL Mean Platelet Volume 7.8 6.9-10.8 fL Neutrophils (%) (Auto) 70.7 37.0-80.0 % Lymphocytes (%) (Auto) 17.4 10.0-50.0 % Monocytes (%) (Auto) 11.3 0.0-12.0 % Eosinophils (%) (Auto) 0.3 0.0-7.0 % Basophils (%) (Auto) 0.3 0.0-2.0 % Neutrophils # (Auto) 4.0 1.6-8.6 10 ^3/uL Lymphocytes # (Auto) 1.0 0.4-5.4 10 ^3/uL Monocytes # (Auto) 0.6 0-1.3 10 ^3/uL Eosinophils # (Auto) 0 0-0.8 10 ^3/uL Basophils # (Auto) 0 0-0.2 10 ^3/uL Nucleated Red Blood Cells 0.1 % Sodium Level 136 136-145 mmol/L Potassium Level 4.2 3.5-5.1 mmol/L Chloride Level 101 98-107 mmol/L Carbon Dioxide Level 26 20-31 mmol/L Anion Gap 9 5-15 Blood Urea Nitrogen 34 #H 9-23 mg/dL Creatinine 3.80 #H 0.550-1.02 mg/dL Glomerular Filtration Rate Calc 12 >90 mL/min BUN/Creatinine Ratio 8.9 L 10.0-20.0 Serum Glucose 75 74-106 mg/dL Calcium Level 9.1 8.7-10.4 mg/dL Total Bilirubin 0.3 0.2-1.0 mg/dL Aspartate Amino Transferase (AST) 47 H 13-40 U/L Alanine Aminotransferase (ALT) 46 H 7-40 U/L Alkaline Phosphatase 117 H 46-116 U/L Total Protein 6.6 5.7-8.2 g/dL Albumin 3.8 3.2-4.8 g/dL Test 11/20/24 13:15 Range/Units Troponin I High Sensitivity 25 </=34 ng/L Assessment Impression: Acute hypoxic respiratory failure Dependence on supplemental oxygen Chest pain - ruled out acute [place] End-stage renal disease, on hemodialysis Diabetes mellitus type II Elevated D-dimer Overweight, BMI 29.5 Plan: Supplemental oxygen 2 LPM NC Titrate to keep O2 sats above 92%. Taper O2 as tolerated. Chest x-ray reviewed; no acute opacities, pleural effusion or pneumothorax. Ultrasound venous Doppler of left upper extremity is negative for DVT. Monitor hemoglobin Follow up Echocardiogram Cardiology recs appreciated. Incentive spirometry. Antitussive PRN Obtain chest x-ray to assess for interval changes Accu-Cheks, insulin sliding scale PRN. Monitor renal function. Monitor electrolytes. Supplement as necessary. Monitor ins and outs Diet and lifestyle modifications for weight reduction DVT prophylaxis - therapeutic Lovenox Prognosis: Poor given patient's multiple co-morbidities. Rest of plan per hospitalist and other consultants. Thank you, Dr. Polo, for allowing me to participate in this patient's care. Further recommendations will depend on the patient's clinical course. Please do not hesitate to contact me if you have any questions or concerns. This medical document was created using an electronic medical record system with [employer] computerized dictation system. Although these documentations are being carefully reviewed, there may still be some phonetic and typographical changes. The errors are purely typographical, due to imperfection on the software program, and do not reflect any compromise in the patient's medical care. Plan discussed with: Patient, Other (RN/MD Polo) HIRAL BENITES MD Nov 23, 2024 19:05
[2024-11-23] MEDS: ENOXAPARIN SOD 80 MG/0.8ML SYRINGE SC SCH (22:42)
[2024-11-24] VITALS (8 sets, daily range): BP systolic 120–154; BP diastolic 45–81; PULSE 68–84; RESP 17–22; TEMP 97.6–99.8; O2SAT 90–100
--- NOTE | 2024-11-24 06:37 | DVH ---
CHEST RADIOGRAPH Indication: shortness of breath, hypoxia Technique: Single frontal view of the chest was obtained COMPARISON: XY CHEST PORTABLE on DOS: 11/20/24, XY CHEST PORTABLE on DOS: 08/26/24, XY CHEST PORTABLE on DOS: 06/02/23 FINDINGS: Lines and Tubes: Tunneled right central venous catheter in satisfactory position. Lungs: Congestion. Pleura: No effusion. No pneumothorax. Cardiomediastinal contours: Cardiomegaly Bones: Unremarkable IMPRESSION: Congestion, unchanged
--- NOTE | 2024-11-24 09:25 | ECG ---
[facility] Test Date: 2024-11-20 Test Time: 09:26:08 Pat Name: TERA RODRIGUEZ Department: ED Room: [address] [place] [address] 7 Gender: F [employer]: RONEY : 1955 Requested By: EMERGENCY EMERGENCY Order Number: [id number] Reading MD: Matthieu Yi Measurements Intervals [place] Rate: 68 P: 46 [place]: 145 QRS: 11 QRSD: 94 T: 50 QT: 467 QTc: 497 Interpretive Statements Sinus rhythm Borderline low voltage, extremity leads Consider anterior infarct Electronically Signed On 11-27-2024 9:25:33 PST by Matthieu Yi Please click the below link to view image of tracing.
[2024-11-24 09:30] LABS: Hepatitis B Surface Antigen Negative (Negative)
[2024-11-24 10:08] LABS: Hepatitis A Ab IgM Negative; Hepatitis B Core IgM Negative (Negative); Hepatitis C Antibody Negative (Negative)
[2024-11-24 12:59] LABS: Alanine Aminotransferase 31 U/L (7-40); Albumin 3.9 g/dL (3.2-4.8); Alkaline Phosphatase 104 U/L (46-116); Anion Gap 10 (5-15); Aspartate Aminotransferase 27 U/L (13-40); Carbon Dioxide 29 mmol/L (20-31); Chloride 99 mmol/L (98-107); Magnesium 1.8 mg/dL (1.6-2.6); Sodium 138 mmol/L (136-145)
[2024-11-24 13:00] LABS: Total Protein 6.7 g/dL (5.7-8.2)
[2024-11-24 13:02] LABS: Bilirubin, Total 0.2 mg/dL (0.2-1.0); Blood Urea Nitrogen 62 mg/dL (9-23); Glucose 115 mg/dL (74-106); Phosphorus 5.4 mg/dL (2.4-5.1)
--- NOTE | 2024-11-24 14:07 | DVH ---
NUCLEAR MEDICINE VENTILATION/PERFUSION LUNG SCAN. INDICATION: PULMONARY EMBOLISM R/O COMPARISON: NM NM VQ SCAN on DOS: 03/14/24 TECHNIQUE: Following intravenous demonstration of 5 millicuries of technetium 99m MAA, and inhalati on of 10 mCi of Xe 133 scintigrams were obtained in multiple projections of the lungs. FINDINGS: There is normal uptake of radionuclide on both the ventilation and perfusion portions of the examinat ion. No mismatched perfusion defects are demonstrated. Uptake is normally homogeneous. IMPRESSION: Low probability for PE.
--- NOTE | 2024-11-24 16:20 | DVHDS2 ---
Discharge Summary Date of Admission Nov 20, 2024 at 15:12 Date of Discharge: Nov 24, 2024 Labs/Diagnostic Data: Laboratory Results Test 11/24/24 12:17 11/24/24 12:02 11/23/24 14:58 11/22/24 08:30 POC Glucose 127 mg/dl (70-106) Sodium Level 138 mmol/L (136-145) Potassium Level 4.0 mmol/L (3.5-5.1) Chloride Level 99 mmol/L (98-107) Carbon Dioxide Level 29 mmol/L (20-31) Anion Gap 10 (5-15) Blood Urea Nitrogen 62 mg/dL (9-23) Creatinine 6.19 mg/dL (0.550-1.02) Glomerular Filtration Rate Calc 7 mL/min (>90) BUN/Creatinine Ratio 10.0 (10.0-20.0) Serum Glucose 115 mg/dL (74-106) Calcium Level 9.0 mg/dL (8.7-10.4) Phosphorus Level 5.4 mg/dL (2.4-5.1) Magnesium Level 1.8 mg/dL (1.6-2.6) Total Bilirubin 0.2 mg/dL (0.2-1.0) Aspartate Amino Transferase (AST) 27 U/L (13-40) Alanine Aminotransferase (ALT) 31 U/L (7-40) Alkaline Phosphatase 104 U/L (46-116) Total Protein 6.7 g/dL (5.7-8.2) Albumin 3.9 g/dL (3.2-4.8) Vitamin D 25-Hydroxy 106.4 ng/mL (30.0-100) Parathyroid Hormone (Intact) 694.9 pg/mL (18.4-80.1) D-Dimer, Quantitative 0.93 mg/L FEU (0.0-0.49) Hepatitis A IgM Antibody Negative Hepatitis B Surface Antigen Negative (Negative) Hepatitis B Core IgM Antibody Negative (Negative) Hepatitis C Antibody Negative (Negative) Test 11/21/24 06:08 11/20/24 13:15 White Blood Count 5.7 10^3/uL (4.4-10.8) Red Blood Count 2.77 10^6/uL (4.0-5.20) Hemoglobin 9.0 g/dL (12.2-16.2) Hematocrit 26.1 % (36.0-46.0) Mean Corpuscular Volume 94.3 fL (80.0-100.0) Mean Corpuscular Hemoglobin 32.4 pg (28.0-32.0) Mean Corpuscular Hemoglobin Concent 34.4 g/dL (32.0-36.0) Red Cell Distribution Width 13.4 % (11.8-14.3) Platelet Count 208 10^3/uL (140-450) Mean Platelet Volume 7.8 fL (6.9-10.8) Neutrophils (%) (Auto) 70.7 % (37.0-80.0) Lymphocytes (%) (Auto) 17.4 % (10.0-50.0) Monocytes (%) (Auto) 11.3 % (0.0-12.0) Eosinophils (%) (Auto) 0.3 % (0.0-7.0) Basophils (%) (Auto) 0.3 % (0.0-2.0) Neutrophils # (Auto) 4.0 10 ^3/uL (1.6-8.6) Lymphocytes # (Auto) 1.0 10 ^3/uL (0.4-5.4) Monocytes # (Auto) 0.6 10 ^3/uL (0-1.3) Eosinophils # (Auto) 0 10 ^3/uL (0-0.8) Basophils # (Auto) 0 10 ^3/uL (0-0.2) Nucleated Red Blood Cells 0.1 % Troponin I High Sensitivity 25 ng/L (</=34) Other Laboratory Tests 11/24/24 12:02 11/21/24 06:08 Brief Hx & Hospital Course: 68-year-old female with a known history of diabetes mellitus type 2, hypertension, dyslipidemia, end-stage renal disease on hemodialysis initially presented to the hospital with left arm pain and some chest heaviness found to have mildly elevated troponin. Patient was has end-stage renal disease on hemodialysis was getting dialysis. Patient also developed acute hypoxic respiratory failure with the elevated D-dimers, V/Q scan shows low probability of PE. Patient qualified for home O2 which was arranged. Patient was being discharged under stable condition with close follow up with the primary as well as Dr. Carrillo. Condition at Discharge: Stable Final Diagnosis/Problems List 68-year-old female with a known history of diabetes mellitus type 2, hypertension, dyslipidemia, end-stage renal disease on hemodialysis initially presented to the hospital with left arm pain and some chest heaviness found to have 1. Left arm pain and chest pain ruled out acute [place] 2. End-stage renal disease on hemodialysis 3. Hypertension 4. Diabetes mellitus type 2 5. Dyslipidemia 6. Acute hypoxic respiratory failure with elevated D-dimer, ruled out PE Discharge Disposition: Home with Health Services SNF Discharge Will this Physician continue t: No Discharge Instruct/Medications Diet: Cardiac 2g Na,low cholest Activity: No Restrictions, As Tolerated Follow Up/Referral: With the PCP in 1-2 weeks Follow up with Dr. Carrillo in one week Medications: Resume home medications Discharge Statement: "Patient was advised to return to the ER or call 911 if any headaches, dizziness, shortness of breath, chest pain, abdominal pain, bleeding, fevers, or worsening of medical condition. Patient was counseled about treatment plan, medications, possible side effects, patientverbalized understanding. All questions were answered to the best of my ability. This discharge took greater then 30 minutes in planning, reviewing documentation, counseling the patient, and discussing with other team members." ASSESSMENT ASSESSMENT Assessment 68-year-old female with a known history of diabetes mellitus type 2, hypertension, dyslipidemia, end-stage renal disease on hemodialysis initially presented to the hospital with left arm pain and some chest heaviness found to have 1. Left arm pain and chest pain ruled out acute [place] 2. End-stage renal disease on hemodialysis 3. Hypertension 4. Diabetes mellitus type 2 5. Dyslipidemia 6. Acute hypoxic respiratory failure with elevated D-dimer, ruled out PE Date of Service: Nov 24, 2024 Billing Provider: KELLY PERDOMO MD Common Visit Codes: NOT BILLABLE KELLY PERDOMO MD Nov 24, 2024 16:20
--- NOTE | 2024-11-24 16:47 | DVHPN2 ---
Progress Note Date Seen: Nov 24, 2024 Medical Necessity Reason Pt with a Central, PICC or Fol: No Subjective Patient reports: No new complaints Other Systems: Patient seen and examined by myself today in f/u Objective vital signs Vital Sign Date Time Temp Pulse Resp B/P (MAP) Pulse Ox O2 Delivery O2 Flow Rate FiO2 11/24/24 13:00 97.9 68 18 124/51 (75) 95 97.9 11/24/24 08:00 Nasal Cannula* 2 28 Total Intake and Output 11/23/24 11/23/24 11/24/24 14:59 22:59 06:59 Intake Total 525 ml 320 ml Output Total 420 ml Balance 525 ml -100 ml medications Current Medications Medications Dose Ordered Sig/Linda Route Start Time Stop Time Status Last Admin Dose Admin Acetaminophen/ Hydrocodone Bitart 1 tab Q4HP PRN PO 11/20/24 15:15 Ondansetron HCl 4 mg Q4HP PRN IV 11/20/24 15:15 11/21/24 20:57 4 MG Acetaminophen 650 mg Q6HP PRN PO 11/20/24 15:15 11/24/24 05:41 650 MG Morphine Sulfate 2 mg Q4HPRN PRN IV 11/20/24 15:15 Nitroglycerin 0.4 mg Q5MINP PRN SL 11/20/24 15:15 Morphine Sulfate 2 mg Q30M PRN IV 11/20/24 15:15 Diagnostic Test (Pha) 1 strip ACHS 11/21/24 07:00 11/24/24 11:30 1 STRIP Insulin Human Regular ACHS SC 11/21/24 07:00 11/23/24 21:53 2 UNITS Dextrose 50 ml UD PRN IV 11/20/24 22:15 Guaifenesin/ Dextromethorphan 10 ml Q6HPRN PRN PO 11/21/24 20:45 11/21/24 21:24 10 ML Enoxaparin Sodium 80 mg DAILY SC 11/23/24 22:00 11/24/24 12:23 80 MG Examination: LUNGS:Normal, CVS:Normal, MSK:Normal laboratory and microbiology Laboratory Tests 11/24/24 12:02 11/21/24 06:08 Test 11/24/24 12:02 Range/Units Serum Glucose 115 H 74-106 mg/dL Problem List/Assessment/Plan Problem List/Assessment/Plan ESRD on dialysis Left upper extremity pain , awaiting revision of AVF with Dr. Durham as outpatient Hypertension Recommendations HD tomorrow Epogen 10,000 IV with HD No DVT on ultrasound Has CVC currently Will continue to follow Plan discussed with: Patient My Orders My Orders Orders - SHALONDA CUMMINS MD Procedure Category Date Status Time Hemodialysis Orders ORDERS 11/25/24 Transmitted 07:00 Dialysis Nursing JOHNNY 11/25/24 In Process Message 07:00 Heparin Sodium PHA 11/25/24 In Process (Porcine) 07:00 Heparin Sodium PHA 11/25/24 In Process (Porcine) 07:00 Sodium Chloride 0.9% PHA 11/25/24 In Process 07:00 Document Fluid Input JOHNNY 11/25/24 In Process And Outpu 07:00 Epoetin Nahum-Epbx PHA 11/25/24 In Process (Retacrit) 21:00 Hemoglobin & LAB 11/25/24 Verified Hematocrit 04:00 SHALONDA CUMMINS MD Nov 24, 2024 16:46
--- NOTE | 2024-11-24 21:38 | DVHPN2 ---
Progress Note - Dictate Date Seen: Nov 24, 2024 Medical Necessity Reason Pt with a Central, PICC or Fol: No Subjective Patient seen and examined at bedside. Remains on supplemental oxygen Overnight events reviewed. vital signs Vital Sign Date Time Temp Pulse Resp B/P (MAP) Pulse Ox O2 Delivery O2 Flow Rate FiO2 11/24/24 20:00 84 18 90 Nasal Cannula* 2 28 11/24/24 17:07 98.6 11/24/24 17:00 120/81 (94) Total Intake and Output 11/23/24 11/23/24 11/24/24 15:00 23:00 07:00 Intake Total 525 ml 320 ml Output Total 420 ml Balance 525 ml -100 ml medications Current Medications Medications Dose Ordered Sig/Linda Route Start Time Stop Time Status Last Admin Dose Admin Acetaminophen/ Hydrocodone Bitart 1 tab Q4HP PRN PO 11/20/24 15:15 Ondansetron HCl 4 mg Q4HP PRN IV 11/20/24 15:15 11/21/24 20:57 4 MG Acetaminophen 650 mg Q6HP PRN PO 11/20/24 15:15 11/24/24 05:41 650 MG Morphine Sulfate 2 mg Q4HPRN PRN IV 11/20/24 15:15 Nitroglycerin 0.4 mg Q5MINP PRN SL 11/20/24 15:15 Morphine Sulfate 2 mg Q30M PRN IV 11/20/24 15:15 Diagnostic Test (Pha) 1 strip ACHS 11/21/24 07:00 11/24/24 11:30 1 STRIP Insulin Human Regular ACHS SC 11/21/24 07:00 11/23/24 21:53 2 UNITS Dextrose 50 ml UD PRN IV 11/20/24 22:15 Guaifenesin/ Dextromethorphan 10 ml Q6HPRN PRN PO 11/21/24 20:45 11/21/24 21:24 10 ML Enoxaparin Sodium 80 mg DAILY SC 11/23/24 22:00 11/24/24 12:23 80 MG objective Gen.: Patient lying in bed in no apparent distress. On supplemental oxygen. Head: Normocephalic, atraumatic. Eyes: EOMI/PERRLA. Ears: Normal hearing. Normal anatomy. Neck/trachea: Trachea midline, supple. Nose: Normal external anatomy. Mouth: Moist mucous membranes. Chest: Decreased air entry bilaterally. No wheezing or rhonchi. Cardiovascular: Positive S1, positive S2. Regular rate and rhythm. Abdomen: Positive bowel sounds in all 4 quadrants. Soft, non-tender, non- distended. : Deferred. Rectal: Deferred. Skin: Warm, dry. Intact. Extremities: 2+ radial pulses bilaterally. No lower extremity edema. Neuro: Awake, alert, oriented x3. No gross motor or sensory deficits. Cranial nerves II through XII intact. Gait not assessed. laboratory and microbiology Laboratory Tests 11/24/24 12:02 11/21/24 06:08 Test 11/24/24 12:02 Range/Units Serum Glucose 115 H 74-106 mg/dL Assessment/Plan Impression: Acute hypoxic respiratory failure Dependence on supplemental oxygen Chest pain - ruled out acute [place] End-stage renal disease, on hemodialysis Diabetes mellitus type II Elevated D-dimer Overweight, BMI 29.5 Events: Remains on supplemental oxygen, 2 LPM NC Taper O2 as tolerated V/Q scan to rule out PE pending. Chest x-ray reviewed; demonstrates pulmonary congestion, no pleural effusion or pneumothorax. Therapeutic Lovenox HD per Nephrology Monitor renal function. Monitor electrolytes. Supplement as necessary. Monitor ins and outs Labs and imaging reviewed. Rest of plan as noted below. Plan: Supplemental oxygen Titrate to keep O2 sats above 92%. Ultrasound venous Doppler of left upper extremity is negative for DVT. Monitor hemoglobin Follow up Echocardiogram Cardiology recs appreciated. Incentive spirometry. Antitussive PRN Accu-Cheks, insulin sliding scale PRN. Monitor renal function. Monitor electrolytes. Supplement as necessary. Monitor ins and outs Diet and lifestyle modifications for weight reduction DVT prophylaxis - therapeutic Lovenox Prognosis: Poor given patient's multiple co-morbidities. Rest of plan per hospitalist and other consultants. Thank you, Dr. Polo, for allowing me to participate in this patient's care. Further recommendations will depend on the patient's clinical course. Please do not hesitate to contact me if you have any questions or concerns. This medical document was created using an electronic medical record system with [employer] system. Although these documentations are being carefully reviewed, there may still be some phonetic and typographical changes. The errors are purely typographical, due to imperfection on the software program, and do not reflect any compromise in the patient's medical care. Plan discussed with: Patient, Other (CRYSTAL Arnold) HIRAL BENITES MD Nov 24, 2024 21:38
[2024-11-25] MEDS ORDERED: SODIUM CHL 0.9% 1000 ML BAG XX ONE (07:00)
[2024-11-25] MEDS ORDERED: EPOETIN ALFA-EPBX 10,000 UNIT/1ML VIAL SC ONE (21:00)
== END 2024-11-24 22:00 | disposition home health service (06) | DRG 314 ==
LOC: EDBD 09:25 → ER 09:25 → TELE 15:12 → TELE-E-ADS 11-21 03:15
PROVIDERS: ADMIT Internal Medicine; ATTEND Internal Medicine
PROC: 5A1D70Z Performance of Urinary Filtration, Intermittent, Less than 6 Hours Per Day (ICD-10-PCS; principal; 2024-11-22)
DX: T82.848A Pain due to vascular prosthetic devices, implants and grafts, initial encounter (principal); J96.01 Acute respiratory failure with hypoxia; N18.6 End stage renal disease; I12.0 Hypertensive chronic kidney disease with stage 5 chronic kidney disease or end stage renal disease; I20.89 Other forms of angina pectoris; E11.22 Type 2 diabetes mellitus with diabetic chronic kidney disease; E78.5 Hyperlipidemia, unspecified; E66.3 Overweight; Z99.2 Dependence on renal dialysis; Z99.81 Dependence on supplemental oxygen; Z90.49 Acquired absence of other specified parts of digestive tract; Z68.29 Body mass index [BMI] 29.0-29.9, adult; Z79.4 Long term (current) use of insulin
CPT/HCPCS: 36415; 71045; 78582; 80048; 80053; 80074; 82306; 82962; 83735; 83970; 84100; 84484; 85025; 85379; 90935; 93005; 93306; 93971; 97110; 97116; 97163; 97530; 99291; G0378; J1642; J1815; J2405

== ENCOUNTER 2025-03-19 10:53 | Inpatient (IN) | payer OTHER ==
[~2025-03-19] VITALS: Ht 152.4 cm; Wt 79.2 kg
--- NOTE | 2025-03-19 11:42 | ED.PDOC ---
HPI Comments 69-year-old female brought in by ambulance with prior history of dialysis-T, TH, Sat, hypertension, diabetes; surgical history of appendectomy, cholecystectomy, in chief complaining of chest pain. EMS report that the patient is a poor historian but informed in the the chest pain started last night which was nonradiating and sternal with dull ache pain. Patient went to her dialysis this morning 5 am, in started to get left arm numbness at approximately 7 am. In notes on having nausea. Denies chills, fever, /V/D, SOB. No other associated symptoms, modifiers, recent injuries or sick contacts present at this time. Chief Complaint: Chest Pain Time Seen by MD: 11:25 Primary Care Provider: FERNANDO Reviewed Notes: Nurses Notes, Pressure Dispatcher Notes, Medications, Allergies Allergies: Coded Allergies: NO KNOWN ALLERGIES (Unverified , 06/29/11) Home Meds Active Scripts Pantoprazole Sodium Sesquihydr (Pantoprazole Sodium) 40 Mg Tab, 40 MG PO DAILY@BREAKFAST, #30 TAB Prov:SHANNON LOPEZ MD 08/28/24 Ondansetron Odt 4MG Tab (ZOFRAN PO) 4 Mg Tb, 4 MG PO Q8HPRN PRN, #20 TAB ODT TAB-DISSOLVE IN MOUTH, THEN SWALLOW Prov:SHANNON LOPEZ MD 08/28/24 Glipizide (Glipizide) 5 Mg Tab, 2.5 MG PO DAILY, #15 TAB Prov:MOHAMUD BRANNON MD 06/05/23 Reported Medications Linagliptin Base (TRADJENTA) 5 Mg Tab, 1 TAB PO DAILY 03/14/24 Amlodipine Besylate (Amlodipine Besylate) 5 Mg Tab, 1 TAB PO DAILY 03/14/24 Ferrous Sulfate (Ferrous Sulfate) 325 Mg Tab, 325 MG PO BIDWM for 30 Days, MG 03/13/24 Alendronate Sodium (Alendronate Sodium) 70 Mg Tab, 1 TAB PO QWEEKLY 06/06/23 Rosuvastatin Calcium (Rosuvastatin Calcium) 20 Mg Tab, 1 TAB PO DAILY 06/06/23 Ergocalciferol (Vitamin D) 50,000 Unit Cap, 1 CAP PO QWEEKLY 06/06/23 Information Source: Patient, Emergency Med Personnel Mode of Arrival: EMS Severity: Moderate Timing: Hours Duration: Since onset, Hours Prehospital treatment: None Location: Substernal Radiation: Arm (L) Quality: Aching (Dull) Onset: At Rest Cardiac Risk Factors: HTN, Diabetes PE Risk Factors: None History of: None Associated Signs and Symptoms: N/V (Just nausea) Past Medical History PAST MEDICAL HISTORY: DM, HTN Past Medical History (Other): Dialysis Surgical History: Appendectomy, Cholecystectomy [employer] AND STRATEG[employer] ANALYSIS History: No Pertinent [employer]EARCH AND STRATEGIC ANALYSIS History Family History Family History: Reviewed,noncontributory to illness, Unknown Social History Smoker: Non-Smoker Alcohol: Denies ETOH Use Drugs: Denies Drug Use Lives In: Home Constitutional: denies: chills, diaphoresis, fatigue, fever, malaise, sweats, weakness, others EENTM: denies: blurred vision, double vision, ear bleeding, ear discharge, ear drainage, ear pain, ear ringing, eye pain, eye redness, hearing loss, mouth pain, mouth swelling, nasal discharge, nose bleeding, nose congestion, nose pain, photophobia, tearing, throat pain, throat swelling, voice changes, others Respiratory: denies: cough, hemoptysis, orthopnea, SOB at rest, shortness of breath, SOB with excertion, stridor, wheezing, others Cardiovascular: reports: chest pain; denies: dizzy spells, diaphoresis, Dyspnea on exertion, edema, irregular heart beat, left arm pain, lightheadedness, palpitations, PND, syncope, others Gastrointestinal: reports: nausea; denies: abdomen distended, abdominal pain, blood streaked bowels, constipated, diarrhea, dysphagia, difficulty swallowing, hematemesis, melena, poor appetite, poor fluid intake, rectal bleeding, rectal pain, vomiting, others Genitourinary: denies: abnormal vagina bleeding, burning, dyspareunia, dysuria, flank pain, frequency, hematuria, incontinence, pain, , vagina discharge, urgency, others Neurological: denies: dizziness, fainting, headache, left sided numbness, left sided weakness, numbness, paresthesia, pre-existing deficit, right sided numbness, right sided weakness, seizure, speech problems, tingling, tremors, weakness, others Musculoskeletal: denies: back pain, gout, joint pain, joint swelling, muscle pain, muscle stiffness, neck pain, others Integumetry: denies: bruises, change in color, change in hair/nails, dryness, laceration, lesions, lumps, rash, wounds, others Allergic/Immunocompromised: denies: Difficulty Healing, Frequent Infections, Hives, Itching, others Hematologic/Lymphatic: denies: anemia, blood clots, easy bleeding, easy bruising, swollen glands, others Endocrine: denies: excessive hunger, excessive sweating, excessive thirst, excessive urination, flushing, intolerance to cold, intolerance to heat, unexplained weight gain, unexplained weight loss, others Psychiatric: denies: anxiety, bipolar disorder, depression, hopeless, panic disorder, schizophrenia, sleepless, suicidal, others All Other Systems: Reviewed and Negative Physical Exam General Appearance: No Apparent Distress, Normal HEENT: Normal ENT Inspection, Pharynx Normal, TMs Normal Neck: Full Range of Motion, Non-Tender, Normal, Normal Inspection Respiratory: Chest Non-Tender, Lungs Clear, No Accessory Muscle Use, No Respiratory Distress, Normal Breath Sounds Cardiovascular: No Edema, No JVD, No Murmur, No Gallop, Normal Peripheral Pulses, Regular Rate/Rhythm Breast Exam: Deferred Gastrointestinal: No Organomegaly, Non Tender, No Pulsatile Mass, Normal Bowel Sounds, Soft Genitalia: Deferred Pelvic: Deferred Rectal: Deferred Extremities: No calf tenderness, Normal capillary refill, Normal inspection, Normal range of motion, Non-tender, No pedal edema Musculoskeletal : Apperance: Normal Neurologic: Alert, administrator pesticide II-XII nml as Tested, No Motor Deficits, Normal Affect, Normal Mood, No Sensory Deficits Cerebellar Function: Normal Reflexes: Normal Skin: Dry, Normal Color, Warm Lymphatic: No Adenopathy Was a procedure done? Was a procedure done?: No CP Differential Dx Differential Diagnosis: DE, PAC's Differential Diagnosis: HTN Essential, HTN Accelerated, Medical NonCompliance Differential Diagnosis: Chest Wall Pain, Myocardial Infarction, Pericarditis X-Ray, Labs, Meds, VS Vital Signs Date Time Temp Pulse Resp B/P (MAP) Pulse Ox O2 Delivery O2 Flow Rate FiO2 03/19/25 12:45 100.4 86 16 123/46 (71) 95 100.4 03/19/25 12:45 86 16 95 Nasal Cannula 2.0 03/19/25 11:50 89 03/19/25 10:55 99.0 84 20 146/53 (84) 97 99.0 03/19/25 10:53 86 Lab Test 03/19/25 11:56 03/19/25 11:00 Range/Units Troponin I High Sensitivity 32 26 </=34 ng/L White Blood Count 19.1 H 4.4-10.8 10^3/uL Red Blood Count 3.13 L 4.0-5.20 10^6/uL Hemoglobin 10.1 L 12.2-16.2 g/dL Hematocrit 29.5 L 36.0-46.0 % Mean Corpuscular Volume 94.4 80.0-100.0 fL Mean Corpuscular Hemoglobin 32.4 H 28.0-32.0 pg Mean Corpuscular Hemoglobin Concent 34.3 32.0-36.0 g/dL Red Cell Distribution Width 14.0 11.8-14.3 % Platelet Count 254 140-450 10^3/uL Mean Platelet Volume 8.1 6.9-10.8 fL Neutrophils (%) (Auto) 88.0 H 37.0-80.0 % Lymphocytes (%) (Auto) 2.7 L 10.0-50.0 % Monocytes (%) (Auto) 9.1 0.0-12.0 % Eosinophils (%) (Auto) 0.0 0.0-7.0 % Basophils (%) (Auto) 0.2 0.0-2.0 % Neutrophils # (Auto) 16.8 H 1.6-8.6 10 ^3/uL Lymphocytes # (Auto) 0.5 0.4-5.4 10 ^3/uL Monocytes # (Auto) 1.7 H 0-1.3 10 ^3/uL Eosinophils # (Auto) 0 0-0.8 10 ^3/uL Basophils # (Auto) 0 0-0.2 10 ^3/uL Nucleated Red Blood Cells 0.0 % Sodium Level 137 136-145 mmol/L Potassium Level 4.1 3.5-5.1 mmol/L Chloride Level 97 L 98-107 mmol/L Carbon Dioxide Level 29 20-31 mmol/L Anion Gap 11 5-15 Blood Urea Nitrogen 23 9-23 mg/dL Creatinine 2.75 H 0.550-1.02 mg/dL Glomerular Filtration Rate Calc 18 >90 mL/min BUN/Creatinine Ratio 8.4 L 10.0-20.0 Serum Glucose 144 H 74-106 mg/dL Calcium Level 9.2 8.7-10.4 mg/dL Time of 1ST Reevaluation: 11:55 Reevaluation 1ST: Unchanged Patient Education/Counseling: Diagnosis, Treatment, Prognosis Family Education/Counseling: No Family Present Departure 1 Departure Time of Disposition: 13:30 (Patient presents with chest pain and shortness of breath after dialysis. Patient also found to be febrile with an elevated white count. Patient empirically cover with antibiotics. We will not give patient a fluid bolus and the patient has a dialysis patient with mild volume overload.) Impression: Primary Impression: Acute chest pain Additional Impressions: Fever Qualified Codes: R50.9 - Fever, unspecified Generalized weakness Disposition: ADMITTED INPATIENT Admit to: Med Surg Condition: Serious Critical Care Note Critical Care Time?: Yes Critical care comment: Acute chest pain Authorized and Performed by: Biju Ruiz MD Total critical care time: Approximately 38 minutes Due to a high probability of clinically significant, life threatening deterioration, the patient required my highest level of preparedness to intervene emergently and I personally spent this critical care time directly and personally managing the patient. This critical care time included obtaining a history; examining the patient; pulse oximetry; ordering and review of studies; arranging urgent treatment with development of a management plan; evaluation of patient's response to treatment; frequent reassessment; and, discussions with other providers. This critical care time was performed to assess and manage the high probability of imminent, life-threatening deterioration that could result in multi-organ failure. It was exclusive of separately billable procedures and treating other patients and teaching time. Please see my other sections and the rest of the note for further information on patient assessment and treatment. Stability Stability form required: No Heart Score Heart Score: Heart Score Response (Comments) Value History Moderate Suspicious 1 EKG Repolarization Disturb 1 Age >65 2 Risk Factors >3 or Hx ASHD 2 Troponin 1-2 x's Normal limit 1 Total 7 I personally scribed for BIJU RUIZ MD ([email or web address]) on 03/19/25 at 11:42. Electronically submitted by Pepe Quigley ([email or web address]). BIJU RUIZ MD March 19, 2025 11:42
[2025-03-19 11:59] LABS: Basophils # (auto) 0 10 ^3/uL (0-0.2); Basophils % (auto) 0.2 % (0.0-2.0); Eosinophils # (auto) 0 10 ^3/uL (0-0.8); Hematocrit 29.5 % (36.0-46.0); Hemoglobin 10.1 g/dL (12.2-16.2); Lymphocytes # (auto) 0.5 10 ^3/uL (0.4-5.4); Lymphocytes % (auto) 2.7 % (10.0-50.0); Mean Corpuscular Hemoglobin 32.4 pg (28.0-32.0); Mean Corpuscular Hgb Conc. 34.3 g/dL (32.0-36.0); Mean Corpuscular Volume 94.4 fL (80.0-100.0); Monocytes # (auto) 1.7 10 ^3/uL (0-1.3); Monocytes % (auto) 9.1 % (0.0-12.0); Neutrophils # (auto) 16.8 10 ^3/uL (1.6-8.6); Platelet Count (auto) 254 10^3/uL (140-450); Red Blood Cells 3.13 10^6/uL (4.0-5.20); White Blood Cell 19.1 10^3/uL (4.4-10.8)
--- NOTE | 2025-03-19 12:00 | DVH ---
XY CHEST PORTABLE, HISTORY: chest pain COMPARISON: XY CHEST XRAY 1 VIEW on DOS: 11/24/24, XY CHEST PORTABLE on DOS: 11/20/24, XY CHEST PORTABL E on DOS: 08/26/24 XY CHEST XRAY 1 VIEW on DOS: 11/24/24, XY CHEST PORTABLE on DOS: 11/20/24, XY CHEST PORTABLE on DOS: TECHNICAL DATA: 1 view of the chest was obtained. FINDINGS: Lines and tubes: A TD cath is noted. Cardiomediastinal silhouette: Enlarged Pulmonary vasculature: normal Lung expansion: normal Lung airspace: normal Lung interstitium: normal Pleura: normal Pneumothorax: no Bones: Unremarkable Other: no IMPRESSION: No acute intrathoracic abnormality.
[2025-03-19 12:01] LABS: Potassium 4.1 mmol/L (3.5-5.1); Sodium 137 mmol/L (136-145)
[2025-03-19 12:02] LABS: Anion Gap 11 (5-15); Carbon Dioxide 29 mmol/L (20-31)
[2025-03-19 12:03] LABS: Calcium 9.2 mg/dL (8.7-10.4); Chloride 97 mmol/L (98-107)
[2025-03-19 12:08] LABS: BUN/Creatinine Ratio 8.4 (10.0-20.0); Blood Urea Nitrogen 23 mg/dL (9-23); Glucose 144 mg/dL (74-106)
[2025-03-19] MEDS: ACETAMINOPHEN 325 MG TAB PO ONE (14:11)
[2025-03-19] MEDS ORDERED: VANCOMYCIN PER PHARMACY 0 MG IV SCH (14:30)
[2025-03-19] MEDS ORDERED: NITROGLYCERIN 0.4 MG SL TAB SL PRN (14:30)
[2025-03-19] MEDS ORDERED: MORPHINE SULFATE INJ 2 MG/ml SYRG IV PRN (14:30)
[2025-03-19] MEDS: VANCOMYCIN 1GM/200ML PM 200 ML IV ONE (14:36)
[2025-03-19] MEDS ORDERED: cloNIDine HCL 0.1 MG TAB PO PRN (14:45)
--- NOTE | 2025-03-19 14:46 | DVHHP2 ---
History of Present Illness Reason for Visit: Chest pain and fever History of Present Illness 69-year-old female brought in by ambulance with prior history of dialysis-T, TH, Sat, hypertension, diabetes; surgical history of appendectomy, cholecystectomy, in chief complaining of chest pain. EMS report that the patient is a poor historian but informed in the the chest pain started last night which was nonradiating and sternal with dull ache pain. Patient went to her dialysis this morning 5 am, in started to get left arm numbness at approximately 7 am. In notes on having nausea. Denies chills, fever, /V/D, SOB. No other associated symptoms, modifiers, recent injuries or sick contacts present at this time. In the ER she is noted to have a temperature in the 100 range. Given her dialysis catheter with a fever and elevated WBC it is felt patient warrants admission and further evaluation to rule out bacteremia or catheter related infection. Past Medical History Hypertension, end-stage renal disease on hemodialysis, GERD, anemia of chronic kidney disease, diabetes mellitus type 2 Past Surgical History Appendectomy, Cholecystectomy Family History: Hypertension Smoke: No ALCOHOL: occassional Lives: with Family Review of Systems Review of Systems Besides fever and chest pain other review of systems reviewed normal Allergies: Coded Allergies: NO KNOWN ALLERGIES (Unverified , 06/29/11) Exam Vital Signs Vital Signs Date Time Temp Pulse Resp B/P (MAP) Pulse Ox O2 Delivery O2 Flow Rate FiO2 03/19/25 14:11 100.1 03/19/25 12:45 86 16 123/46 (71) 95 03/19/25 12:45 Nasal Cannula 2.0 General Appearance: Alert, Oriented X3 HEENT: PERRLA, EOMI Respiratory: Clear to auscultation, Normal air movement Cardiovascular: Regular rate, Normal S1, Normal S2, No murmurs Abdominal: Normal bowel sounds, Soft Extremities: No cyanosis, Normal pulses Skin: No rashes Neuro: Normal speech Psych/Mental Status: Mood NL Labs/Xrays Labs Test 03/19/25 14:00 03/19/25 11:00 Range/Units Lactic Acid Level 1.3 0.4-2.0 mmol/L Troponin I High Sensitivity 32 </=34 ng/L White Blood Count 19.1 H 4.4-10.8 10^3/uL Red Blood Count 3.13 L 4.0-5.20 10^6/uL Hemoglobin 10.1 L 12.2-16.2 g/dL Hematocrit 29.5 L 36.0-46.0 % Mean Corpuscular Volume 94.4 80.0-100.0 fL Mean Corpuscular Hemoglobin 32.4 H 28.0-32.0 pg Mean Corpuscular Hemoglobin Concent 34.3 32.0-36.0 g/dL Red Cell Distribution Width 14.0 11.8-14.3 % Platelet Count 254 140-450 10^3/uL Mean Platelet Volume 8.1 6.9-10.8 fL Neutrophils (%) (Auto) 88.0 H 37.0-80.0 % Lymphocytes (%) (Auto) 2.7 L 10.0-50.0 % Monocytes (%) (Auto) 9.1 0.0-12.0 % Eosinophils (%) (Auto) 0.0 0.0-7.0 % Basophils (%) (Auto) 0.2 0.0-2.0 % Neutrophils # (Auto) 16.8 H 1.6-8.6 10 ^3/uL Lymphocytes # (Auto) 0.5 0.4-5.4 10 ^3/uL Monocytes # (Auto) 1.7 H 0-1.3 10 ^3/uL Eosinophils # (Auto) 0 0-0.8 10 ^3/uL Basophils # (Auto) 0 0-0.2 10 ^3/uL Nucleated Red Blood Cells 0.0 % Sodium Level 137 136-145 mmol/L Potassium Level 4.1 3.5-5.1 mmol/L Chloride Level 97 L 98-107 mmol/L Carbon Dioxide Level 29 20-31 mmol/L Anion Gap 11 5-15 Blood Urea Nitrogen 23 9-23 mg/dL Creatinine 2.75 H 0.550-1.02 mg/dL Glomerular Filtration Rate Calc 18 >90 mL/min BUN/Creatinine Ratio 8.4 L 10.0-20.0 Serum Glucose 144 H 74-106 mg/dL Calcium Level 9.2 8.7-10.4 mg/dL Assessment/Plan Assessment/Plan Patient has a tunneled dialysis catheter. Given the her fever with a chest pain we will admit her to hospital and rule out underlying catheter related infection or bacteremia. Meantime blood cultures were sent from the ER. We will start her on broad-spectrum antibiotics. We will consult Cardiology as well as Nephrology. Resume her blood pressure medications. Troponin x2. Otherwise continue rest of supportive care and treatment. Pain and nausea medications as needed. Further clinical management per clinical course, pending evaluations, recommendations from the consultants. Discussed with the ER physician. Plan discussed with: Other My Orders Orders - SHANNON LOPEZ MD Procedure Category Date Status Time Urinalysis LAB 03/19/25 Logged 13:53 PTPTT LAB 03/19/25 Logged 13:53 Rapid Influenza A&B LAB 03/19/25 Logged 13:53 *Dr. [facility] CONS 03/19/25 Transmitted -[place] 13:53 Problem List: (1) Hemodialysis patient (2) Fever (3) Generalized weakness (4) Acute chest pain SHANNON LOPEZ MD March 19, 2025 14:46
[2025-03-19] MEDS ORDERED: DEXTROSE (50%) 50ML SYRG IV PRN (15:00)
[2025-03-19 15:21] LABS: Triglycerides 117 mg/dL (< 150)
[2025-03-19 15:23] LABS: Cholesterol 194 mg/dL (< 200); HDL Cholesterol 50 mg/dL (40-59)
[2025-03-19 15:24] LABS: INR 1.09 (0.9-1.15); LDL Cholesterol 125 mg/dL (< 100); Partial Thromboplastin Time 29.3 SEC (24.5-34.5); Prothrombin Time 11.5 sec (9.3-11.8)
[2025-03-19 15:45] VITALS: PULSE 72; RESP 17; O2SAT 100
--- NOTE | 2025-03-19 15:46 | DVHINCON2 ---
Date of service: March 19, 2025 History of Present Illness 69-year-old female brought in by ambulance with prior history of dialysis-T, TH, Sat, hypertension, diabetes; surgical history of appendectomy, cholecystectomy, in chief complaining of chest pain. EMS report that the patient is a poor historian but informed in the the chest pain started last night which was nonradiating and sternal with dull ache pain. Patient went to her dialysis this morning 5 am, in started to get left arm numbness at approximately 7 am. In notes on having nausea. Denies chills, fever, /V/D, SOB. No other associated symptoms, modifiers, recent injuries or sick contacts present at this time. In the ER she is noted to have a temperature in the 100 range. Given her dialysis catheter with a fever and elevated WBC it is felt patient warrants admission and further evaluation to rule out bacteremia or catheter related infection. Past Medical History Hypertension, end-stage renal disease on hemodialysis, GERD, anemia of chronic kidney disease, diabetes mellitus type 2 Past Surgical History Appendectomy, Cholecystectomy Family History: Hypertension Smoke: No ALCOHOL: occassional Lives: with Family Review of Systems Past Medical History reviewed Family History: Bone cancer Allergies: Coded Allergies: NO KNOWN ALLERGIES (Unverified , 06/29/11) Home Meds Active Scripts Pantoprazole Sodium Sesquihydr (Pantoprazole Sodium) 40 Mg Tab, 40 MG PO DAILY@BREAKFAST, #30 TAB Prov:SHANNON LOPEZ MD 08/28/24 Ondansetron Odt 4MG Tab (ZOFRAN PO) 4 Mg Tb, 4 MG PO Q8HPRN PRN, #20 TAB ODT TAB-DISSOLVE IN MOUTH, THEN SWALLOW Prov:SHANNON LOPEZ MD 08/28/24 Glipizide (Glipizide) 5 Mg Tab, 2.5 MG PO DAILY, #15 TAB Prov:MOHAMUD BRANNON MD 06/05/23 Reported Medications Linagliptin Base (TRADJENTA) 5 Mg Tab, 1 TAB PO DAILY 03/14/24 Amlodipine Besylate (Amlodipine Besylate) 5 Mg Tab, 1 TAB PO DAILY 03/14/24 Ferrous Sulfate (Ferrous Sulfate) 325 Mg Tab, 325 MG PO BIDWM for 30 Days, MG 03/13/24 Alendronate Sodium (Alendronate Sodium) 70 Mg Tab, 1 TAB PO QWEEKLY 06/06/23 Rosuvastatin Calcium (Rosuvastatin Calcium) 20 Mg Tab, 1 TAB PO DAILY 06/06/23 Ergocalciferol (Vitamin D) 50,000 Unit Cap, 1 CAP PO QWEEKLY 06/06/23 Current Medications Current Medications Medications (Trade) Dose Ordered Sig/Linda Route PRN Reason Start Time Stop Time Status Last Admin Nitroglycerin (Ntrostat Sublingual) 0.4 mg Q5MINP PRN SL FOR CHEST PAIN 03/19/25 14:30 UNV Morphine Sulfate 2 mg Q30M PRN IV FOR CHEST PAIN 03/19/25 14:30 UNV Cefepime HCl 50 ml @ 12.5 mls/hr DAILY IV 03/20/25 10:00 UNV Vancomycin HCl 0 ml @ 0 mls/hr UD IV 03/19/25 14:30 Acetaminophen (Tylenol Tablet) 650 mg Q4HP PRN PO PAIN SCALE 1-3 OR TEMP>100.4 03/19/25 14:30 UNV Ondansetron HCl (Zofran) 4 mg Q4HPRN PRN IV NAUSEA / VOMITING 03/19/25 14:45 UNV Famotidine (Pepcid Tablet) 20 mg DAILY PO 03/20/25 10:00 UNV Amlodipine Besylate (Norvasc Tablet) 10 mg DAILY PO 03/20/25 10:00 UNV Clonidine HCl (Catapres Tablet) 0.1 mg Q4HP PRN PO SBP>150 03/19/25 14:45 UNV Diagnostic Test (Pha) (Accu-Chek Comfort Curve T) 1 strip ACHS 03/19/25 17:00 UNV Insulin Human Regular (InsuLIN R) ACHS SC 03/19/25 17:00 UNV Dextrose 50 ml UD PRN IV Blood Sugar LESS THAN 60 03/19/25 15:00 UNV Review of Systems 10 pt ros otherwie negative Vital Signs Vital Signs Date Time Temp Pulse Resp B/P (MAP) Pulse Ox O2 Delivery O2 Flow Rate FiO2 03/19/25 14:11 100.1 03/19/25 13:49 80 03/19/25 12:45 16 123/46 (71) 95 03/19/25 12:45 Nasal Cannula 2.0 Physical Exam nad s1 s2 rrr ctab soft nt/nd no edema Labs/Diagnostic Data Labs Test 03/19/25 14:00 03/19/25 11:00 Range/Units Lactic Acid Level 1.3 0.4-2.0 mmol/L Troponin I High Sensitivity 32 </=34 ng/L White Blood Count 19.1 H 4.4-10.8 10^3/uL Red Blood Count 3.13 L 4.0-5.20 10^6/uL Hemoglobin 10.1 L 12.2-16.2 g/dL Hematocrit 29.5 L 36.0-46.0 % Mean Corpuscular Volume 94.4 80.0-100.0 fL Mean Corpuscular Hemoglobin 32.4 H 28.0-32.0 pg Mean Corpuscular Hemoglobin Concent 34.3 32.0-36.0 g/dL Red Cell Distribution Width 14.0 11.8-14.3 % Platelet Count 254 140-450 10^3/uL Mean Platelet Volume 8.1 6.9-10.8 fL Neutrophils (%) (Auto) 88.0 H 37.0-80.0 % Lymphocytes (%) (Auto) 2.7 L 10.0-50.0 % Monocytes (%) (Auto) 9.1 0.0-12.0 % Eosinophils (%) (Auto) 0.0 0.0-7.0 % Basophils (%) (Auto) 0.2 0.0-2.0 % Neutrophils # (Auto) 16.8 H 1.6-8.6 10 ^3/uL Lymphocytes # (Auto) 0.5 0.4-5.4 10 ^3/uL Monocytes # (Auto) 1.7 H 0-1.3 10 ^3/uL Eosinophils # (Auto) 0 0-0.8 10 ^3/uL Basophils # (Auto) 0 0-0.2 10 ^3/uL Nucleated Red Blood Cells 0.0 % Prothrombin Time 11.5 9.3-11.8 sec Prothrombin Time INR 1.09 0.9-1.15 Activated Partial Thromboplast Time 29.3 24.5-34.5 SEC Sodium Level 137 136-145 mmol/L Potassium Level 4.1 3.5-5.1 mmol/L Chloride Level 97 L 98-107 mmol/L Carbon Dioxide Level 29 20-31 mmol/L Anion Gap 11 5-15 Blood Urea Nitrogen 23 9-23 mg/dL Creatinine 2.75 H 0.550-1.02 mg/dL Glomerular Filtration Rate Calc 18 >90 mL/min BUN/Creatinine Ratio 8.4 L 10.0-20.0 Serum Glucose 144 H 74-106 mg/dL Hemoglobin A1c 6.2 H <5.7 % A1C Calcium Level 9.2 8.7-10.4 mg/dL Triglycerides Level 117 < 150 mg/dL Cholesterol Level 194 < 200 mg/dL LDL Cholesterol 125 H < 100 mg/dL HDL Cholesterol 50 40-59 mg/dL Assessment fever chest pain/ abd pain esrd on hd htn Plan/Recommendation check echo to r/o endocarditis iv abx as indicted, defer to hospitalist pt had cv workup with her primary cards dr martinez, we will consult him to see if any testing is indicated acs ruled out with - trops Plan discussed with: Patient SIERRA MCADAMS MD March 19, 2025 15:46
[2025-03-19] MEDS: ACCU-CHEK COMFORT CURVE STRIP VI SCH (17:34)
[2025-03-19] MEDS: InsuLIN REG 1unit/0.01ml Soln (100units/ml) SC SCH (17:34)
[2025-03-19] MEDS: CEFEPIME 2GM/50ML NS 50 ML IV ONE (17:37)
[2025-03-19] MEDS: ONDANSETRON HCL 4 MG/2 ML VIAL IV PRN (19:38)
[2025-03-19 20:49] LABS: Rapid Influenza A Negative (Negative); Rapid Influenza B Negative (Negative)
[2025-03-19 23:12] VITALS: PULSE 89
[2025-03-19 23:30] VITALS: BP 128/45; PULSE 88; RESP 18; TEMP 98.3; O2SAT 98
--- NOTE | 2025-03-19 23:33 | DVHSR ---
APPROVED REPORT EXAM: LIMITED Two-dimensional and M-mode echocardiogram with Doppler and color Doppler. Blood Pressure: 123/46 mmHg INDICATION Chest Pain Fever RISK FACTORS Height: 5', Weight: 160 DIMENSIONS LVDd5.0 (3.8-5.7cm)LA (2D)3.8 (1.9-4.0cm)Aortic Root3.2 (2.0-3.7cm) LVDs3.6 (2.5-4.0cm)LA (MM) (1.9-4.0cm)Aortic Cusp Exc1.6 (1.5-2.0cm) EF (%) 55.0 (55-70%)Rt. Atrium3.9 (1.9-4.0cm)Asc. Aorta cm IVSd1.0 (0.7-1.1cm)RV (D) (1.8-2.4cm) PWd1.0 (0.7-1.1cm) Mitral Valve MitralMitral Stenosis E wave1.00m/sMV Mean GR.mmHg A wave1.00m/sMV Peak GR.mmHg E/A ratio1.02D MVAcm2 Aortic Valve Aortic ValveAortic Stenosis V10.80m/Dara Mean GR.6mmHg V21.50m/Dara Peak GR.9mmHg LVOT Diameter2.2 (1.8-2.4cm)Doppler AVA2.03cm2 Pulmonic Valve V21.00m/s Tricuspid Valve TR Velocity2.50m/s [id number] Other Information Quality : Technically LimitedRhythm : Technically limited study due to body habitus. Conclusion There is mild concentric left ventricular hypertrophy Left ventricular systolic function is preserved Ejection fraction is estimated at 60% Aortic valve is tricuspid Aortic valve leaflets are sclerotic without evidence of stenosis There is mild mitral annular calcification There is mild mitral regurgitation There is trivial pericardial effusion
[2025-03-20] VITALS (8 sets, daily range): BP systolic 98–146; BP diastolic 39–92; PULSE 69–89; RESP 16–19; TEMP 97.3–99.1; O2SAT 94–98
[2025-03-20] MEDS: ACETAMINOPHEN 325 MG TAB PO PRN (05:12)
[2025-03-20 06:14] LABS: Basophils # (auto) 0.1 10 ^3/uL (0-0.2); Basophils % (auto) 0.3 % (0.0-2.0); Eosinophils # (auto) 0 10 ^3/uL (0-0.8); Hematocrit 29.3 % (36.0-46.0); Lymphocytes # (auto) 0.8 10 ^3/uL (0.4-5.4); Lymphocytes % (auto) 4.1 % (10.0-50.0); Mean Corpuscular Hemoglobin 32.5 pg (28.0-32.0); Mean Corpuscular Hgb Conc. 34.1 g/dL (32.0-36.0); Mean Corpuscular Volume 95.4 fL (80.0-100.0); Monocytes # (auto) 1.6 10 ^3/uL (0-1.3); Monocytes % (auto) 8.2 % (0.0-12.0); Neutrophils % (auto) 87.4 % (37.0-80.0); Nucleated Red Blood Cells % 0.1 %; Platelet Count (auto) 218 10^3/uL (140-450); Red Blood Cells 3.07 10^6/uL (4.0-5.20); Red Cell Distribution Width 14.1 % (11.8-14.3); White Blood Cell 19.4 10^3/uL (4.4-10.8)
[2025-03-20 06:25] LABS: Anion Gap 12 (5-15); Carbon Dioxide 27 mmol/L (20-31); Potassium 4.6 mmol/L (3.5-5.1)
[2025-03-20 06:26] LABS: Calcium 8.6 mg/dL (8.7-10.4); Chloride 96 mmol/L (98-107); Sodium 135 mmol/L (136-145)
[2025-03-20 06:32] LABS: BUN/Creatinine Ratio 8.2 (10.0-20.0)
[2025-03-20 06:49] LABS: Blood Urea Nitrogen 38 mg/dL (9-23); Glucose 135 mg/dL (74-106)
[2025-03-20] MEDS: CEFEPIME 1 GM/50 ML IV SCH (09:44)
[2025-03-20] MEDS: FAMOTIDINE 20 MG TAB PO SCH (09:48)
[2025-03-20] MEDS: amLODIPine BESYLATE 5 MG TAB PO SCH (09:49)
--- NOTE | 2025-03-20 10:31 | ECG ---
[facility] Test Date: 2025-03-19 Test Time: 11:50:27 Pat Name: TERA RODRIGUEZ Department: ED Room: 0223T A Gender: F Viscose Cellar Charge Hand: ARTUR : 1955 Requested By: LILLY DIAZ Order Number: [id number] Reading MD: Matthieu Yi Measurements Intervals [place] Rate: 89 P: 49 ND: 125 QRS: -2 QRSD: 143 T: 69 QT: 409 QTc: 498 Interpretive Statements Sinus rhythm Probable left atrial enlargement Left ventricular hypertrophy Anterior Q waves, possibly due to LVH Baseline wander in lead(s) V1,V2 Electronically Signed On 03-21-2025 20:59:05 PDT by Matthieu Yi Please click the below link to view image of tracing.
--- NOTE | 2025-03-20 10:32 | ECG ---
[facility] Test Date: 2025-03-19 Test Time: 10:50:04 Pat Name: TERA RODRIGUEZ Department: ED Room: 0223T A Gender: F Clerk Stenographer: ARTUR : 1955 Requested By: LILLY DIAZ Order Number: [id number] Reading MD: Matthieu Yi Measurements Intervals [place] Rate: 86 P: 43 LA: 128 QRS: -11 QRSD: 86 T: 58 QT: 434 QTc: 519 Interpretive Statements Sinus rhythm Probable left atrial enlargement Consider anterior infarct Minimal ST depression, lateral leads Prolonged QT interval Electronically Signed On 03-21-2025 20:58:52 PDT by Matthieu Yi Please click the below link to view image of tracing.
--- NOTE | 2025-03-20 10:33 | ECG ---
[facility] Test Date: 2025-03-19 Test Time: 13:49:25 Pat Name: TERA RODRIGUEZ Department: ED Room: 0223T A Gender: F Recruitment Advertising Manager: ARTUR : 1955 Requested By: LILLY DIAZ Order Number: [id number] Reading MD: Matthieu Yi Measurements Intervals [place] Rate: 80 P: 53 MI: 135 QRS: 4 QRSD: 93 T: 81 QT: 425 QTc: 491 Interpretive Statements Sinus rhythm Probable left atrial enlargement Abnormal R-wave progression, late transition Nonspecific T abnormalities, lateral leads Borderline prolonged QT interval Electronically Signed On 03-21-2025 20:59:27 PDT by Matthieu Yi Please click the below link to view image of tracing.
[2025-03-20 11:32] LABS: Phosphorus 5.7 mg/dL (2.4-5.1)
[2025-03-20] MEDS: LIDOCAINE 2%HCL (LOCAL ANESTH.) INJ 10ml MDV ONE (13:52)
--- NOTE | 2025-03-20 16:19 | DVHCONRES ---
Date Seen: March 20, 2025 Resident Creating Document: SONIA MEDRANO RESIDENT History of Present Illness This is a 69-year-old female patient with PMH ESRD on hemodialysis Sunday//Sunday with [facility] for the past 1 year, diabetes mellitus likely type 2 on glipizide since 2019, hypertension who was sent to the ER from her dialysis center when she experienced some midsternal chest pain radiating to the jaw which was pressure type in nature and radiating to the jaw in the arm. On my evaluation patient reports severe back pain, which is left- sided and midline lumbar region nonradiating, started last night while she was in the ER. Patient also reports fever and chills along with dizziness but denies any nausea/vomiting/diarrhea/palpitations. Patient reports making urine. Patient reports that around 2 weeks back her right tunneled catheter was draining greenish discharge for which she was given vancomycin. On arrival to the ER, patient is febrile at 100.4 F, requiring oxygen supplementation with 2 L, WBC 19, H and H 10/29, BUN/creatinine 38/4.6. Blood culture growing prelim Gram-positive cocci in cluster. Past medical history: ESRD on hemodialysis Sunday//Sunday with [facility] for the past 1 year, diabetes mellitus likely type 2 on glipizide since 2019, hypertension Social History: Lives with family, denies drinking/smoking/drug use Patient seen and examined at the bedside. Has midline lumbar tenderness. IR consulted for the removal of tunneled cath given the possible site of infection. Family History: Bone cancer G8 MOTHER Diabetes mellitus G8 FATHER Hypertension G8 MOTHER Allergies: Coded Allergies: NO KNOWN ALLERGIES (Unverified , 06/29/11) Home Meds Active Scripts Pantoprazole Sodium Sesquihydr (Pantoprazole Sodium) 40 Mg Tab, 40 MG PO DAILY@BREAKFAST, #30 TAB Prov:SHANNON LOPEZ MD 08/28/24 Ondansetron Odt 4MG Tab (ZOFRAN PO) 4 Mg Tb, 4 MG PO Q8HPRN PRN, #20 TAB ODT TAB-DISSOLVE IN MOUTH, THEN SWALLOW Prov:SHANNON LOPEZ MD 08/28/24 Glipizide (Glipizide) 5 Mg Tab, 2.5 MG PO DAILY, #15 TAB Prov:MOHAMUD BRANNON MD 06/05/23 Reported Medications Linagliptin Base (TRADJENTA) 5 Mg Tab, 1 TAB PO DAILY 03/14/24 Amlodipine Besylate (Amlodipine Besylate) 5 Mg Tab, 1 TAB PO DAILY 03/14/24 Ferrous Sulfate (Ferrous Sulfate) 325 Mg Tab, 325 MG PO BIDWM for 30 Days, MG 03/13/24 Alendronate Sodium (Alendronate Sodium) 70 Mg Tab, 1 TAB PO QWEEKLY 06/06/23 Rosuvastatin Calcium (Rosuvastatin Calcium) 20 Mg Tab, 1 TAB PO DAILY 06/06/23 Ergocalciferol (Vitamin D) 50,000 Unit Cap, 1 CAP PO QWEEKLY 06/06/23 Current Medications Current Medications Medications (Trade) Dose Ordered Sig/Linda Route PRN Reason Start Time Stop Time Status Last Admin Cefepime HCl 25 ml @ 6.25 mls/hr DAILY IV 03/20/25 10:00 Famotidine (Pepcid Tablet) 10 mg EOD PO 03/20/25 10:00 03/20/25 09:48 Amlodipine Besylate (Norvasc Tablet) 10 mg DAILY PO 03/20/25 10:00 03/20/25 09:49 Diagnostic Test (Pha) (Accu-Chek Comfort Curve T) 1 strip ACHS 03/19/25 17:00 03/20/25 06:29 Insulin Human Regular (InsuLIN R) ACHS SC 03/19/25 17:00 03/19/25 22:30 Acetaminophen/ Hydrocodone Bitart ([place] 5/325MG Tab) 1 tab Q4HPRN PRN PO MODERATE PAIN (4-6 PAIN SCALE) 03/20/25 15:00 Vital Signs Vital Signs Date Time Temp Pulse Resp B/P (MAP) Pulse Ox O2 Delivery O2 Flow Rate FiO2 03/20/25 13:00 98.4 69 16 116/39 (64) 98 98.4 03/20/25 00:44 Nasal Cannula* 5 40 Physical Exam Patient lying in bed, in no acute distress General: Obese, afebrile, palor, mucosae are moist Cardiovascular: Regular S1 and S2. No murmurs, gallops or rubs. No JVD elevation. No pedal edema Respiratory: Normal B/L air entry on room air. Clear lung sounds on auscultation Abdomen: Soft, nontender, nondistended, normoactive bowel sounds, no rebound tenderness, no organomegaly, no masses Genitourinary: Deferred MSK/skin: Mobilizes 4 limbs. Skin is dry and warm. Patient has midline lumbar tenderness and paraspinal tenderness Neurological: No motor, no sensitive deficits, normal speech. Pupils are isocoric and reactive. Psych/Mental Status: A/Ox3 Labs/Diagnostic Data Labs Test 03/20/25 06:27 03/20/25 05:30 03/19/25 15:44 03/19/25 14:00 Range/Units POC Glucose 123 H 70-106 mg/dl White Blood Count 19.4 H 4.4-10.8 10^3/uL Red Blood Count 3.07 L 4.0-5.20 10^6/uL Hemoglobin 10.0 L 12.2-16.2 g/dL Hematocrit 29.3 L 36.0-46.0 % Mean Corpuscular Volume 95.4 80.0-100.0 fL Mean Corpuscular Hemoglobin 32.5 H 28.0-32.0 pg Mean Corpuscular Hemoglobin Concent 34.1 32.0-36.0 g/dL Red Cell Distribution Width 14.1 11.8-14.3 % Platelet Count 218 140-450 10^3/uL Mean Platelet Volume 8.1 6.9-10.8 fL Neutrophils (%) (Auto) 87.4 H 37.0-80.0 % Lymphocytes (%) (Auto) 4.1 L 10.0-50.0 % Monocytes (%) (Auto) 8.2 0.0-12.0 % Eosinophils (%) (Auto) 0.0 0.0-7.0 % Basophils (%) (Auto) 0.3 0.0-2.0 % Neutrophils # (Auto) 17.0 H 1.6-8.6 10 ^3/uL Lymphocytes # (Auto) 0.8 0.4-5.4 10 ^3/uL Monocytes # (Auto) 1.6 H 0-1.3 10 ^3/uL Eosinophils # (Auto) 0 0-0.8 10 ^3/uL Basophils # (Auto) 0.1 0-0.2 10 ^3/uL Nucleated Red Blood Cells 0.1 % Sodium Level 135 L 136-145 mmol/L Potassium Level 4.6 3.5-5.1 mmol/L Chloride Level 96 L 98-107 mmol/L Carbon Dioxide Level 27 20-31 mmol/L Anion Gap 12 5-15 Blood Urea Nitrogen 38 #H 9-23 mg/dL Creatinine 4.61 #H 0.550-1.02 mg/dL Glomerular Filtration Rate Calc 10 >90 mL/min BUN/Creatinine Ratio 8.2 L 10.0-20.0 Serum Glucose 135 H 74-106 mg/dL Calcium Level 8.6 L 8.7-10.4 mg/dL Phosphorus Level 5.7 H 2.4-5.1 mg/dL Magnesium Level 2.0 1.6-2.6 mg/dL Vitamin D 25-Hydroxy 79.0 30.0-100 ng/mL Parathyroid Hormone (Intact) 589.5 H 18.4-80.1 pg/mL Random Vancomycin Level 17.9 H 5-10 ug/mL Influenza Type A Antigen Negative Negative Influenza Type B Antigen Negative Negative Lactic Acid Level 1.3 0.4-2.0 mmol/L Troponin I High Sensitivity 32 </=34 ng/L Test 03/19/25 11:00 Range/Units Prothrombin Time 11.5 9.3-11.8 sec Prothrombin Time INR 1.09 0.9-1.15 Activated Partial Thromboplast Time 29.3 24.5-34.5 SEC Hemoglobin A1c 6.2 H <5.7 % A1C Triglycerides Level 117 < 150 mg/dL Cholesterol Level 194 < 200 mg/dL LDL Cholesterol 125 H < 100 mg/dL HDL Cholesterol 50 40-59 mg/dL Microbiology Date/Time Source Procedure Growth Status 03/19/25 14:00 Blood Blood Culture - Preliminary Resulted Assessment ESRD on hemodialysis T//Sun Sepsis, likely source tunneled catheter Anemia likely secondary to ESRD Diabetes mellitus likely type 2 Hypertension Acute chest pain, rule out ACS Acute back pain Secondary hyperparathyroidism Plan: Given the patient appearing septic, and history of tunneled catheter with green discharge, we consulted IR for removal of the tunneled catheter. Follow up with culture and sensitivity results. Blood culture 03/19 pending, 03/20 ordered, patient will require negative blood cultures for 3 consecutive days before placement of dialysis catheter. Continue strict I&Os, and adequate blood pressure control Renal ultrasound 03/2024 was unremarkable Continue IV antibiotics per primary team Avoid nephrotoxic medications Follow up with the echocardiogram Plan discussed with patient in which all questions have been answered Case discussed with Dr. Dacosta Addendum Patient seen and examined, plan discussed with resident. Agree with above, we will follow closely Plan discussed with: Patient SONIA MEDRANO RESIDENT March 20, 2025 16:19 GINNY DACOSTA MD March 20, 2025 20:49
--- NOTE | 2025-03-20 16:36 | DVHPN2 ---
Progress Note - Dictate Date Seen: March 20, 2025 Medical Necessity Reason Pt with a Central, PICC or Fol: No Subjective Patient is clinically stable. Seen and evaluated by Cardiology and Nephrology. Her dialysis tunnel catheter is removed for possible infection and sent for cultures. She is afebrile today. vital signs Vital Sign Date Time Temp Pulse Resp B/P (MAP) Pulse Ox O2 Delivery O2 Flow Rate FiO2 03/20/25 13:00 98.4 69 16 116/39 (64) 98 98.4 03/20/25 00:44 Nasal Cannula* 5 40 Total Intake and Output 03/19/25 03/19/25 03/20/25 15:00 23:00 07:00 Intake Total 0 ml Output Total 0 ml Balance 0 ml medications Current Medications Medications Dose Ordered Sig/Linda Route Start Time Stop Time Status Last Admin Dose Admin Nitroglycerin 0.4 mg Q5MINP PRN SL 03/19/25 14:30 Morphine Sulfate 2 mg Q30M PRN IV 03/19/25 14:30 Cefepime HCl 25 ml @ 6.25 mls/hr DAILY IV 03/20/25 10:00 Vancomycin HCl 0 ml @ 0 mls/hr UD IV 03/19/25 14:30 Acetaminophen 650 mg Q4HP PRN PO 03/19/25 14:30 03/20/25 05:12 650 MG Ondansetron HCl 4 mg Q4HPRN PRN IV 03/19/25 14:45 03/19/25 19:38 4 MG Famotidine 10 mg EOD PO 03/20/25 10:00 03/20/25 09:48 10 MG Amlodipine Besylate 10 mg DAILY PO 03/20/25 10:00 03/20/25 09:49 10 MG Clonidine HCl 0.1 mg Q4HP PRN PO 03/19/25 14:45 Diagnostic Test (Pha) 1 strip ACHS 03/19/25 17:00 03/20/25 06:29 1 STRIP Insulin Human Regular ACHS SC 03/19/25 17:00 03/19/25 22:30 2 UNITS Dextrose 50 ml UD PRN IV 03/19/25 15:00 Acetaminophen/ Hydrocodone Bitart 1 tab Q4HPRN PRN PO 03/20/25 15:00 objective Alert awake oriented x3. Comfortable in bed without distress. HEENT neck supple no JVD. Heart regular rate rhythm S1-S2. Lungs without rales wheezes. Abdomen soft nontender positive bowel sounds. Extremities no edema positive pulses. laboratory and microbiology Laboratory Tests 03/20/25 05:30 Test 03/20/25 05:30 Range/Units Serum Glucose 135 H 74-106 mg/dL Assessment/Plan Wait for cultures from the tunneled dialysis catheter as well as blood cultures. So far preliminary results are negative for any bacterial growth. Echocardiogram done does not show any obvious vegetations or bowel problems. Continue current antibiotics. Dialysis per Nephrology recommendations. Patient is encouraged activity and ambulation. Otherwise further clinical management per clinical course and recommendations from the consultants. Discussed with the patient at bedside regarding care plan. Problems(with codes): (1) [id number] kidney injury (2) Fever (3) Generalized weakness (4) Hemodialysis patient Plan discussed with: Patient, Other SHANNON LOPEZ MD March 20, 2025 16:36
[2025-03-20] MEDS: HEPARIN SODIUM (PORCINE) 5000 UNITS/ML 1ML VIAL SC SCH (22:54)
[2025-03-21] VITALS (9 sets, daily range): BP systolic 119–151; BP diastolic 44–54; PULSE 64–81; RESP 16–17; TEMP 97–98.3; O2SAT 93–97
[2025-03-21] MEDS: HYDROcodone-ACET 5/325MG TAB PO PRN (03:26)
[2025-03-21] MEDS: NALOXONE HCL 0.4 MG/ML VIAL ONE (04:48)
[2025-03-21] MEDS: NALOXONE HCL 0.4 MG/ML VIAL IV PRN (04:48)
[2025-03-21 06:25] LABS: Hematocrit 30.4 % (36.0-46.0); Hemoglobin 10.3 g/dL (12.2-16.2); Mean Corpuscular Hemoglobin 32.4 pg (28.0-32.0); Mean Corpuscular Hgb Conc. 33.9 g/dL (32.0-36.0); Mean Corpuscular Volume 95.6 fL (80.0-100.0); Platelet Count (auto) 217 10^3/uL (140-450); Red Blood Cells 3.18 10^6/uL (4.0-5.20); Red Cell Distribution Width 14.4 % (11.8-14.3); White Blood Cell 12.8 10^3/uL (4.4-10.8)
[2025-03-21 06:31] LABS: Basophils % (manual) 0 (0.0-2.0); Blast Cells 0; Metamyelocytes % 0; Myelocytes % 0; Promyelocytes % 0; Reactive Lymphocytes 0
[2025-03-21 06:34] LABS: Anion Gap 14 (5-15); Carbon Dioxide 24 mmol/L (20-31)
[2025-03-21 06:40] LABS: Band Neutrophils % (manual) 2; Eosinophils % (manual) 1 (0-7); Lymphocytes % (manual) 9 (10.0-50.0); Monocytes % (manual) 8 (0-12); Platelet Estimate Adequate
[2025-03-21 06:53] LABS: Blood Urea Nitrogen 60 mg/dL (9-23); Calcium 8.6 mg/dL (8.7-10.4); Chloride 95 mmol/L (98-107); Glucose 129 mg/dL (74-106); Sodium 133 mmol/L (136-145)
--- NOTE | 2025-03-21 11:42 | DVHPN2 ---
Progress Note - Dictate Date Seen: March 21, 2025 Medical Necessity Reason Pt with a Central, PICC or Fol: No Subjective Overnight events noted. Advised to avoid narcotics given the patient required Narcan with a taking [place]. Encouraged Tylenol extra-strength or ibuprofen as needed for her chronic back pain. Encouraged activity and physical therapy. Blood cultures are positive for MRSA bacteremia. vital signs Vital Sign Date Time Temp Pulse Resp B/P (MAP) Pulse Ox O2 Delivery O2 Flow Rate FiO2 03/21/25 10:00 137/45 03/21/25 09:00 97.7 70 16 95 97.7 03/21/25 08:00 Nasal Cannula* 5 40 Total Intake and Output 03/20/25 03/20/25 03/21/25 15:00 23:00 07:00 Intake Total 700 ml 400 ml Balance 700 ml 400 ml medications Current Medications Medications Dose Ordered Sig/Linda Route Start Time Stop Time Status Last Admin Dose Admin Nitroglycerin 0.4 mg Q5MINP PRN SL 03/19/25 14:30 Morphine Sulfate 2 mg Q30M PRN IV 03/19/25 14:30 Vancomycin HCl 0 ml @ 0 mls/hr UD IV 03/19/25 14:30 Acetaminophen 650 mg Q4HP PRN PO 03/19/25 14:30 03/21/25 00:14 650 MG Ondansetron HCl 4 mg Q4HPRN PRN IV 03/19/25 14:45 03/21/25 03:26 4 MG Famotidine 10 mg EOD PO 03/20/25 10:00 03/20/25 09:48 10 MG Amlodipine Besylate 10 mg DAILY PO 03/20/25 10:00 03/20/25 09:49 10 MG Clonidine HCl 0.1 mg Q4HP PRN PO 03/19/25 14:45 Diagnostic Test (Pha) 1 strip ACHS 03/19/25 17:00 03/21/25 06:49 1 STRIP Insulin Human Regular ACHS SC 03/19/25 17:00 03/21/25 06:49 2 UNITS Dextrose 50 ml UD PRN IV 03/19/25 15:00 Heparin Sodium (Porcine) 5,000 units Q12HR SC 03/20/25 22:00 03/20/25 22:54 5,000 UNITS Naloxone HCl 0.2 mg Q5MP PRN IV 03/21/25 04:45 03/21/25 04:48 0.2 MG objective Alert awake oriented x3. Comfortable in bed without distress. HEENT neck supple no JVD. Heart regular rate rhythm S1-S2. Lungs without rales wheezes. Abdomen soft nontender positive bowel sounds. Extremities no edema positive pulses. laboratory and microbiology Laboratory Tests 03/21/25 04:30 Test 03/21/25 04:30 Range/Units Serum Glucose 129 H 74-106 mg/dL Assessment/Plan Continue current vancomycin for pharmacy for MRSA bacteremia. Continue Tylenol and ibuprofen as needed for pain and avoid narcotics. Encouraged physical therapy and activity. Otherwise continue rest of supportive care and treatment. We will repeat blood cultures on Sunday to see if the infection clears. Then consider placing tunnel catheter for hemodialysis. Meantime no dialysis. Continue to follow labs. Discussed with the patient regarding care plan. Problems(with codes): (1) Bacteremia due to methicillin resistant Staphylococcus aureus (2) [id number] kidney injury (3) Hemodialysis patient (4) Generalized weakness (5) Fever Plan discussed with: Patient, Other SHANNON LOPEZ MD March 21, 2025 11:42
--- NOTE | 2025-03-21 13:24 | DVHPN2 ---
Progress Note Date Seen: March 21, 2025 Medical Necessity Reason Pt with a Central, PICC or Fol: No Subjective Patient reports: Other (Complains of pain dialysis catheter has been removed) Review of Systems: MSK:Abnormal Objective vital signs Vital Sign Date Time Temp Pulse Resp B/P (MAP) Pulse Ox O2 Delivery O2 Flow Rate FiO2 03/21/25 13:00 97.5 66 16 151/50 (83) 97 97.5 03/21/25 08:00 Nasal Cannula* 5 40 Total Intake and Output 03/20/25 03/20/25 03/21/25 15:00 23:00 07:00 Intake Total 700 ml 400 ml Balance 700 ml 400 ml medications Current Medications Medications Dose Ordered Sig/Linda Route Start Time Stop Time Status Last Admin Dose Admin Nitroglycerin 0.4 mg Q5MINP PRN SL 03/19/25 14:30 Morphine Sulfate 2 mg Q30M PRN IV 03/19/25 14:30 Vancomycin HCl 0 ml @ 0 mls/hr UD IV 03/19/25 14:30 Acetaminophen 650 mg Q4HP PRN PO 03/19/25 14:30 03/21/25 00:14 650 MG Ondansetron HCl 4 mg Q4HPRN PRN IV 03/19/25 14:45 03/21/25 03:26 4 MG Famotidine 10 mg EOD PO 03/20/25 10:00 03/20/25 09:48 10 MG Amlodipine Besylate 10 mg DAILY PO 03/20/25 10:00 03/20/25 09:49 10 MG Clonidine HCl 0.1 mg Q4HP PRN PO 03/19/25 14:45 Diagnostic Test (Pha) 1 strip ACHS 03/19/25 17:00 03/21/25 12:59 1 STRIP Insulin Human Regular ACHS SC 03/19/25 17:00 03/21/25 06:49 2 UNITS Dextrose 50 ml UD PRN IV 03/19/25 15:00 Heparin Sodium (Porcine) 5,000 units Q12HR SC 03/20/25 22:00 03/20/25 22:54 5,000 UNITS Naloxone HCl 0.2 mg Q5MP PRN IV 03/21/25 04:45 03/21/25 04:48 0.2 MG Examination: GENERAL:Abnormal, MSK:Abnormal, NEURO:Normal laboratory and microbiology Laboratory Tests 03/21/25 04:30 Test 03/21/25 04:30 Range/Units Serum Glucose 129 H 74-106 mg/dL Microbiology Date/Time Source Procedure Growth Status 03/20/25 20:06 Nose MRSA Screen - Final Methicillin Resistant S.aureus Complete 03/19/25 14:00 Blood Blood Culture - Preliminary Methicillin Resistant S.aureus Resulted Problem List/Assessment/Plan Problem List/Assessment/Plan ESRD on hemodialysis T/Th/Sat Sepsis, likely source tunneled catheter--MRSA bacteremia Anemia likely secondary to ESRD Diabetes mellitus likely type 2 Hypertension Acute chest pain, rule out ACS Acute back pain Secondary hyperparathyroidism Recommendations Dialysis catheter has been removed Continue IV antibiotics Patient reports having back pain on day of admission--recommend to rule out vertebral osteomyelitis given positive blood cultures +mrsa Diuretics IV If blood cultures are negative three days she can have new tunneled dialysis catheter Tunneled catheter removed tuesday 03/20 Daily blood cultures Plan discussed with: Patient, Other GINNY DACOSTA MD March 21, 2025 13:24
[2025-03-21] MEDS: BUMETANIDE 2.5mg/10ml (0.25 mg/ml) INJ IV SCH (14:30)
[2025-03-21] MEDS: VANCOMYCIN 500mg/100mL 100 ML IV ONE (18:07)
[2025-03-22] VITALS (8 sets, daily range): BP systolic 127–141; BP diastolic 39–54; PULSE 64–75; RESP 14–20; TEMP 96.8–98.3; O2SAT 94–99
[2025-03-22 08:53] LABS: Anion Gap 14 (5-15); Carbon Dioxide 23 mmol/L (20-31)
[2025-03-22 08:54] LABS: Calcium 9.1 mg/dL (8.7-10.4)
[2025-03-22 08:55] LABS: Basophils # (auto) 0 10 ^3/uL (0-0.2); Basophils % (auto) 0.4 % (0.0-2.0); Eosinophils # (auto) 0.3 10 ^3/uL (0-0.8); Eosinophils % (auto) 3.1 % (0.0-7.0); Hematocrit 27.9 % (36.0-46.0); Hemoglobin 9.5 g/dL (12.2-16.2); Lymphocytes # (auto) 1.1 10 ^3/uL (0.4-5.4); Lymphocytes % (auto) 11.5 % (10.0-50.0); Mean Corpuscular Hemoglobin 32.4 pg (28.0-32.0); Mean Corpuscular Volume 95.5 fL (80.0-100.0); Monocytes # (auto) 1.3 10 ^3/uL (0-1.3); Monocytes % (auto) 13.3 % (0.0-12.0); Neutrophils # (auto) 6.9 10 ^3/uL (1.6-8.6); Neutrophils % (auto) 71.7 % (37.0-80.0); Platelet Count (auto) 250 10^3/uL (140-450); Red Blood Cells 2.92 10^6/uL (4.0-5.20); Red Cell Distribution Width 14.7 % (11.8-14.3); White Blood Cell 9.6 10^3/uL (4.4-10.8)
[2025-03-22 08:58] LABS: BUN/Creatinine Ratio 10.7 (10.0-20.0); Chloride 96 mmol/L (98-107); Sodium 133 mmol/L (136-145)
[2025-03-22 08:59] LABS: Blood Urea Nitrogen 75 mg/dL (9-23); Glucose 126 mg/dL (74-106)
--- NOTE | 2025-03-22 12:22 | DVHPN2 ---
Progress Note - Dictate Date Seen: March 22, 2025 Medical Necessity Reason Pt with a Central, PICC or Fol: No Subjective No acute events overnight. Patient remains clinically stable. Follow up blood cultures so far negative for growth. vital signs Vital Sign Date Time Temp Pulse Resp B/P (MAP) Pulse Ox O2 Delivery O2 Flow Rate FiO2 03/22/25 10:53 137/49 03/22/25 09:00 98.1 67 16 98 98.1 03/22/25 08:00 Nasal Cannula* 2 28 Total Intake and Output 03/21/25 03/21/25 03/22/25 15:00 23:00 07:00 Intake Total 360 ml 380 ml Output Total 200 ml Balance 160 ml 380 ml medications Current Medications Medications Dose Ordered Sig/Linda Route Start Time Stop Time Status Last Admin Dose Admin Nitroglycerin 0.4 mg Q5MINP PRN SL 03/19/25 14:30 Morphine Sulfate 2 mg Q30M PRN IV 03/19/25 14:30 Vancomycin HCl 0 ml @ 0 mls/hr UD IV 03/19/25 14:30 Acetaminophen 650 mg Q4HP PRN PO 03/19/25 14:30 03/21/25 00:14 650 MG Ondansetron HCl 4 mg Q4HPRN PRN IV 03/19/25 14:45 03/21/25 03:26 4 MG Famotidine 10 mg EOD PO 03/20/25 10:00 03/22/25 10:53 10 MG Amlodipine Besylate 10 mg DAILY PO 03/20/25 10:00 03/22/25 10:53 10 MG Clonidine HCl 0.1 mg Q4HP PRN PO 03/19/25 14:45 Diagnostic Test (Pha) 1 strip ACHS 03/19/25 17:00 03/22/25 11:36 1 STRIP Insulin Human Regular ACHS SC 03/19/25 17:00 03/22/25 11:56 2 UNITS Dextrose 50 ml UD PRN IV 03/19/25 15:00 Heparin Sodium (Porcine) 5,000 units Q12HR SC 03/20/25 22:00 03/22/25 10:59 5,000 UNITS Naloxone HCl 0.2 mg Q5MP PRN IV 03/21/25 04:45 03/21/25 04:48 0.2 MG Bumetanide 2 mg BIDD IV 03/21/25 13:30 objective Alert awake oriented x3. Comfortable in bed without distress. HEENT neck supple no JVD. Heart regular rate rhythm S1-S2. Lungs without rales wheezes. Abdomen soft nontender positive bowel sounds. Extremities no edema positive pulses. laboratory and microbiology Laboratory Tests 03/22/25 07:19 Test 03/22/25 07:19 Range/Units Serum Glucose 126 H 74-106 mg/dL Assessment/Plan Continue current vancomycin for pharmacy for MRSA bacteremia. Otherwise continue rest of supportive care and treatment as she is on. Further clinical management per clinical course and recommendations from the contract runner. Problems(with codes): (1) Bacteremia due to methicillin resistant Staphylococcus aureus (2) [id number]-ce-hgllssf kidney injury (3) Hemodialysis patient (4) Generalized weakness (5) Fever Plan discussed with: SHANNON Everett MD March 22, 2025 12:21
--- NOTE | 2025-03-22 12:23 | DVHPN2 ---
Progress Note Date Seen: March 22, 2025 Medical Necessity Reason Pt with a Central, PICC or Fol: No Subjective Patient reports: No new complaints Review of Systems: MSK:Abnormal (backpain) Objective vital signs Vital Sign Date Time Temp Pulse Resp B/P (MAP) Pulse Ox O2 Delivery O2 Flow Rate FiO2 03/22/25 10:53 137/49 03/22/25 09:00 98.1 67 16 98 98.1 03/22/25 08:00 Nasal Cannula* 2 28 Total Intake and Output 03/21/25 03/21/25 03/22/25 15:00 23:00 07:00 Intake Total 360 ml 380 ml Output Total 200 ml Balance 160 ml 380 ml medications Current Medications Medications Dose Ordered Sig/Linda Route Start Time Stop Time Status Last Admin Dose Admin Nitroglycerin 0.4 mg Q5MINP PRN SL 03/19/25 14:30 Morphine Sulfate 2 mg Q30M PRN IV 03/19/25 14:30 Vancomycin HCl 0 ml @ 0 mls/hr UD IV 03/19/25 14:30 Acetaminophen 650 mg Q4HP PRN PO 03/19/25 14:30 03/21/25 00:14 650 MG Ondansetron HCl 4 mg Q4HPRN PRN IV 03/19/25 14:45 03/21/25 03:26 4 MG Famotidine 10 mg EOD PO 03/20/25 10:00 03/22/25 10:53 10 MG Amlodipine Besylate 10 mg DAILY PO 03/20/25 10:00 03/22/25 10:53 10 MG Clonidine HCl 0.1 mg Q4HP PRN PO 03/19/25 14:45 Diagnostic Test (Pha) 1 strip ACHS 03/19/25 17:00 03/22/25 11:36 1 STRIP Insulin Human Regular ACHS SC 03/19/25 17:00 03/22/25 11:56 2 UNITS Dextrose 50 ml UD PRN IV 03/19/25 15:00 Heparin Sodium (Porcine) 5,000 units Q12HR SC 03/20/25 22:00 03/22/25 10:59 5,000 UNITS Naloxone HCl 0.2 mg Q5MP PRN IV 03/21/25 04:45 03/21/25 04:48 0.2 MG Bumetanide 2 mg BIDD IV 03/21/25 13:30 Examination: GENERAL:Abnormal, LUNGS:Abnormal, MSK:Abnormal, NEURO:Abnormal laboratory and microbiology Laboratory Tests 03/22/25 07:19 Test 03/22/25 07:19 Range/Units Serum Glucose 126 H 74-106 mg/dL Microbiology Date/Time Source Procedure Growth Status 03/20/25 20:06 Nose MRSA Screen - Final Methicillin Resistant S.aureus Complete 03/20/25 17:00 Blood Blood Culture - Preliminary NO GROWTH AFTER 24 HOURS OF INCUBATION. Resulted Problem List/Assessment/Plan Problem List/Assessment/Plan ESRD on hemodialysis T//Sun Sepsis, likely source tunneled catheter--MRSA bacteremia Anemia likely secondary to ESRD Diabetes mellitus likely type 2 Hypertension Acute chest pain, rule out ACS Acute back pain Secondary hyperparathyroidism Recommendations Dialysis catheter has been removed Continue IV antibiotics Patient reports having back pain--recommend to rule out vertebral osteomyelitis given positive blood cultures +mrsa Diuretics IV If blood cultures are negative three days she can have new tunneled dialysis catheter Tunneled catheter removed tuesday 03/20 Daily blood cultures Plan discussed with: Patient My Orders My Orders Orders - GINNY DACOSTA MD Procedure Category Date Status Time Blood Culture VINNY 03/21/25 In Process 13:19 Blood Culture VINNY 03/22/25 In Process 04:00 Bumetanide Injection PHA 03/21/25 In Process (Bumex Injection) 13:30 Lumbar Spine 4+ View XY 03/22/25 Logged 12:21 Pt Request For Service PT 03/22/25 Verified 12:21 GINNY DACOSTA MD March 22, 2025 12:23
--- NOTE | 2025-03-22 15:25 | DVH ---
CLINICAL INDICATION: backpain TECHNIQUE: 5 radiographic views of the lumbar spine were obtained. Comparison: CT abdomen and pelvis 08/26/2024 FINDINGS/IMPRESSION: 5 hey-ssr-reigerg lumbar-type vertebra. Straightening of the lumbar lordosis. Multilevel chronic appe aring mild loss of vertebral body height of the lumbar spine. Otherwise, no evidence for acute trauma tic fractures or spondylolisthesis. Multilevel moderate to severe degenerative changes of the lumbar spine. If symptoms persist, consider CT/MRI for further evaluation.
[2025-03-23] VITALS (7 sets, daily range): BP systolic 140–156; BP diastolic 38–53; PULSE 69–78; RESP 16–19; TEMP 97.8–98.3; O2SAT 94–99
[2025-03-23 07:01] LABS: Basophils # (auto) 0 10 ^3/uL (0-0.2); Basophils % (auto) 0.4 % (0.0-2.0); Eosinophils # (auto) 0.2 10 ^3/uL (0-0.8); Hematocrit 27.8 % (36.0-46.0); Hemoglobin 9.6 g/dL (12.2-16.2); Lymphocytes # (auto) 1.1 10 ^3/uL (0.4-5.4); Lymphocytes % (auto) 10.8 % (10.0-50.0); Mean Corpuscular Hemoglobin 32.8 pg (28.0-32.0); Mean Corpuscular Hgb Conc. 34.4 g/dL (32.0-36.0); Mean Corpuscular Volume 95.6 fL (80.0-100.0); Monocytes # (auto) 1.1 10 ^3/uL (0-1.3); Monocytes % (auto) 11.3 % (0.0-12.0); Neutrophils # (auto) 7.5 10 ^3/uL (1.6-8.6); Neutrophils % (auto) 75.5 % (37.0-80.0); Nucleated Red Blood Cells % 0.1 %; Platelet Count (auto) 250 10^3/uL (140-450); Red Blood Cells 2.91 10^6/uL (4.0-5.20); Red Cell Distribution Width 14.8 % (11.8-14.3); White Blood Cell 9.9 10^3/uL (4.4-10.8)
[2025-03-23 07:15] LABS: Potassium 4.3 mmol/L (3.5-5.1)
[2025-03-23 07:16] LABS: Anion Gap 17 (5-15); Carbon Dioxide 21 mmol/L (20-31); Chloride 97 mmol/L (98-107); Sodium 135 mmol/L (136-145)
[2025-03-23 07:21] LABS: BUN/Creatinine Ratio 12.9 (10.0-20.0)
[2025-03-23 07:28] LABS: Glucose 257 mg/dL (74-106)
[2025-03-23 07:30] LABS: Blood Urea Nitrogen 96 mg/dL (9-23)
--- NOTE | 2025-03-23 12:05 | DVHPN2 ---
Progress Note Date Seen: March 23, 2025 Resident Creating Document: SONIA MEDRANO RESIDENT Medical Necessity Reason Pt with a Central, PICC or Fol: No Subjective Review of Systems This is a 69-year-old female patient with PMH ESRD on hemodialysis Sunday//Sunday with [facility] for the past 1 year, diabetes mellitus likely type 2 on glipizide since 2019, hypertension who was sent to the ER from her dialysis center when she experienced some midsternal chest pain radiating to the jaw which was pressure type in nature and radiating to the jaw in the arm. On my evaluation patient reports severe back pain, which is left- sided and midline lumbar region nonradiating, started last night while she was in the ER. Patient also reports fever and chills along with dizziness but denies any nausea/vomiting/diarrhea/palpitations. Patient reports making urine. Patient reports that around 2 weeks back her right tunneled catheter was draining greenish discharge for which she was given vancomycin. On arrival to the ER, patient is febrile at 100.4 F, requiring oxygen supplementation with 2 L, WBC 19, H and H 10/29, BUN/creatinine 38/4.6. Blood culture growing prelim Gram-positive cocci in cluster. Past medical history: ESRD on hemodialysis Sunday//Sunday with [facility] for the past 1 year, diabetes mellitus likely type 2 on glipizide since 2018, hypertension Social History: Lives with family, denies drinking/smoking/drug use 03/20 - Patient seen and examined at the bedside. Has midline lumbar tenderness. IR consulted for the removal of tunneled cath given the possible site of infection. 03/23-patient seen and examined at the bedside. IR consulted for tunneled catheter. Hemodialysis scheduled for tomorrow. Hold antihypertensives prior to hemodialysis. Follow up with BNP. Other Systems: Patient seen and examined by rogelio today in rounds with the resident, I agree with his assessment and plan Objective vital signs Vital Sign Date Time Temp Pulse Resp B/P (MAP) Pulse Ox O2 Delivery O2 Flow Rate FiO2 03/23/25 09:52 156/46 03/23/25 09:00 97.8 72 18 94 97.8 03/22/25 20:00 Nasal Cannula* 2 28 Total Intake and Output 03/22/25 03/22/25 03/23/25 15:00 23:00 07:00 Intake Total 580 ml 420 ml Balance 580 ml 420 ml medications Current Medications Medications Dose Ordered Sig/Linda Route Start Time Stop Time Status Last Admin Dose Admin Nitroglycerin 0.4 mg Q5MINP PRN SL 03/19/25 14:30 Morphine Sulfate 2 mg Q30M PRN IV 03/19/25 14:30 Vancomycin HCl 0 ml @ 0 mls/hr UD IV 03/19/25 14:30 Acetaminophen 650 mg Q4HP PRN PO 03/19/25 14:30 03/23/25 08:18 650 MG Ondansetron HCl 4 mg Q4HPRN PRN IV 03/19/25 14:45 03/21/25 03:26 4 MG Famotidine 10 mg EOD PO 03/20/25 10:00 03/22/25 10:53 10 MG Amlodipine Besylate 10 mg DAILY PO 03/20/25 10:00 03/23/25 09:52 10 MG Clonidine HCl 0.1 mg Q4HP PRN PO 03/19/25 14:45 Diagnostic Test (Pha) 1 strip ACHS 03/19/25 17:00 03/23/25 11:23 1 STRIP Insulin Human Regular ACHS SC 03/19/25 17:00 03/23/25 07:15 6 UNITS Dextrose 50 ml UD PRN IV 03/19/25 15:00 Heparin Sodium (Porcine) 5,000 units Q12HR SC 03/20/25 22:00 03/23/25 09:59 5,000 UNITS Naloxone HCl 0.2 mg Q5MP PRN IV 03/21/25 04:45 03/21/25 04:48 0.2 MG Bumetanide 2 mg BIDD IV 03/21/25 13:30 03/23/25 06:32 2 MG Examination Patient lying in bed, in no acute distress. General: Obese, afebrile, palor, mucosae are moist Cardiovascular: Regular S1 and S2. No murmurs, gallops or rubs. No JVD elevation. No pedal edema Respiratory: Normal B/L air entry on room air. Clear lung sounds on auscultation Abdomen: Soft, nontender, nondistended, normoactive bowel sounds, no rebound tenderness, no organomegaly, no masses Genitourinary: Deferred MSK/skin: Mobilizes 4 limbs. Skin is dry and warm. Patient has midline lumbar tenderness and paraspinal tenderness Neurological: No motor, no sensitive deficits, normal speech. Pupils are isocoric and reactive. Psych/Mental Status: A/Ox3 laboratory and microbiology Laboratory Tests 03/23/25 06:00 Test 03/23/25 06:00 Range/Units Serum Glucose 257 H 74-106 mg/dL Microbiology Date/Time Source Procedure Growth Status 03/22/25 07:19 Blood Blood Culture - Preliminary NO GROWTH AFTER 24 HOURS OF INCUBATION. Resulted 03/20/25 20:06 Nose MRSA Screen - Final Methicillin Resistant S.aureus Complete Labs and/or images reviewed: Labs reviewed by me, Image(s) reviewed by me Problem List/Assessment/Plan Problem List/Assessment/Plan ESRD on hemodialysis T//Sun Sepsis, likely source tunneled catheter-MRSA bacteremia Anemia likely secondary to ESRD Diabetes mellitus likely type 2 Hypertension Acute chest pain, rule out ACS Acute back pain Secondary hyperparathyroidism Plan: Tunneled catheter removed Tuesday 03/20. Given the negative preliminary blood cultures 03/20, 03/21 and 03/22, we consulted IR for placement of tunneled catheter. Hemodialysis scheduled for tomorrow. Continue strict I&Os, and adequate blood pressure control Patient reports having back pain--recommend to rule out vertebral osteomyelitis given positive blood cultures +mrsa Renal ultrasound 03/2024 was unremarkable Continue IV antibiotics per primary team Avoid nephrotoxic medications Follow up with the echocardiogram Plan discussed with patient in which all questions have been answered Case discussed with Dr. Cummins Plan discussed with: Patient SONIA MEDRANO RESIDENT March 23, 2025 12:05 SHALONDA CUMMINS MD March 23, 2025 14:46
--- NOTE | 2025-03-23 14:07 | DVH ---
XY KUB ABDOMEN SINGLE VIEW HISTORY: Constipation, hyperactive bowel sounds TECHNICAL DATA: 1 view of the abdomen. COMPARISON: None FINDINGS: Patchy gas is identified within nondistended small bowel. There are no dilated small bowel loops. Th ere is no abdominal mass effect. The renal and liver shadows are not enlarged. IMPRESSION: Large colonic fecal burden. No acute intra-abdominal process.
[2025-03-23] MEDS: LIDOCAINE 2%HCL (LOCAL ANESTH.) INJ 20ML MDV ONE (14:17)
[2025-03-23] MEDS: fentaNYL CITRATE 100 MCG/2 ML VL ONE (14:17)
[2025-03-23] MEDS: HEPARIN SODIUM (PORCINE) 5000 UNITS/ML 1ML VIAL ONE (14:18)
[2025-03-23] MEDS: ceFAZolin 1GM/50ML 50 ML IV ONE (15:01)
--- NOTE | 2025-03-23 15:40 | DVH ---
XY Insertion of Venous Cath, HISTORY: HD CATH PL PROCEDURE: Informed consent was obtained. The patient was placed supine on the interventional table. A limited localization ultrasound of the right neck base was obtained. 1 gram of Ancef was given IV. The right neck base and upper chest were prepped with chlorhexidine which was allowed to dry and drap ed in the usual sterile fashion. Time out was performed. IV sedation was administered. The skin and t he soft tissues were infiltrated with 1% Lidocaine mixed with Epinephrine. With real-time ultrasound guidance, the internal jugular vein was accessed with a micropuncture kit, and an image documenting p atency was recorded to PACS. A subcutaneous tunneled tract was created from the right upper chest to the venotomy site. A 14.5 [place] Path, 19 cm long hemodialysis catheter was advanced through th e tunneled tract. Fluoroscopy was used to advance a guidewire through the internal jugular vein into the inferior vena cava. Following serial dilatation, a 15 British peel-away sheath was introduced, though which was adva nced the catheter into the right atrium. The catheter tip position was confirmed with fluoroscopy. Th ere was satisfactory flow in both lumens. The catheter lumens were flushed with saline and heparin wa s left indwelling in the catheter. A post-procedure image of the chest was obtained. The neck incisio n site was closed with a Dermabond and dressed sterilely. The catheter was sutured at the skin surfac e and exit site also dressed sterilely. No immediate complication was identified. DAP 221 FLUOROSCOPY TIME: 1.5 minutes. SEDATION: Dr. Cynthia Ramirez was personally responsible for the administration of moderate sedation during the procedure performed, including the use of an independent trained observer who had no other duties during the procedure. The drugs utilized were IV fentanyl and versed (see nursing log for details). The total time of supervision by the attending physician was approximately 30 minutes. FINDINGS: Widely patent right IJV. Post procedure image demonstrates smooth course of the hemodialysi s catheter with the tip in the right atrium. IMPRESSION: Successful placement of 14.5 [place] Path, 19 cm long hemodialysis catheter through right help desk internship al jugular vein. Plan: Please contact IR for removal when no longer needed.
--- NOTE | 2025-03-23 16:52 | DVHPN2 ---
Progress Note - Dictate Date Seen: March 23, 2025 Medical Necessity Reason Pt with a Central, PICC or Fol: No Subjective No acute events overnight. Undergoing tunneled dialysis catheter placement today. Lumbar x-ray results noted. Pending MRI of the back/spine. vital signs Vital Sign Date Time Temp Pulse Resp B/P (MAP) Pulse Ox O2 Delivery O2 Flow Rate FiO2 03/23/25 14:17 163/70 03/23/25 13:00 98.0 69 19 99 98.0 03/23/25 08:00 Nasal Cannula* 2 28 Total Intake and Output 03/22/25 03/22/25 03/23/25 15:00 23:00 07:00 Intake Total 580 ml 420 ml Balance 580 ml 420 ml medications Current Medications Medications Dose Ordered Sig/Linda Route Start Time Stop Time Status Last Admin Dose Admin Nitroglycerin 0.4 mg Q5MINP PRN SL 03/19/25 14:30 Morphine Sulfate 2 mg Q30M PRN IV 03/19/25 14:30 Vancomycin HCl 0 ml @ 0 mls/hr UD IV 03/19/25 14:30 Acetaminophen 650 mg Q4HP PRN PO 03/19/25 14:30 03/23/25 08:18 650 MG Ondansetron HCl 4 mg Q4HPRN PRN IV 03/19/25 14:45 03/21/25 03:26 4 MG Famotidine 10 mg EOD PO 03/20/25 10:00 03/22/25 10:53 10 MG Amlodipine Besylate 10 mg DAILY PO 03/20/25 10:00 03/23/25 09:52 10 MG Clonidine HCl 0.1 mg Q4HP PRN PO 03/19/25 14:45 Diagnostic Test (Pha) 1 strip ACHS 03/19/25 17:00 03/23/25 16:33 1 STRIP Insulin Human Regular ACHS SC 03/19/25 17:00 03/23/25 07:15 6 UNITS Dextrose 50 ml UD PRN IV 03/19/25 15:00 Heparin Sodium (Porcine) 5,000 units Q12HR SC 03/20/25 22:00 03/23/25 09:59 5,000 UNITS Naloxone HCl 0.2 mg Q5MP PRN IV 03/21/25 04:45 03/21/25 04:48 0.2 MG Bumetanide 2 mg BIDD IV 03/21/25 13:30 03/23/25 06:32 2 MG objective Alert awake oriented x3. Comfortable in bed without distress. HEENT neck supple no JVD. Heart regular rate rhythm S1-S2. Lungs without rales wheezes. Abdomen soft nontender positive bowel sounds. Extremities no edema positive pulses. laboratory and microbiology Laboratory Tests 03/23/25 06:00 Test 03/23/25 06:00 Range/Units Serum Glucose 257 H 74-106 mg/dL Assessment/Plan Continue current vancomycin for pharmacy for MRSA bacteremia. Resume dialysis post to tunneled ulcer catheter placement. Continue current antibiotics. Continue physical therapy. Further clinical management per clinical course and pending MRI results. Discussed with the nurse regarding care plan. Dietary Evaluation Review Comments: Add CCHO-60 and Cardiac Low fat Low Cholesterol to Pt's Renal standard Diet Expected Outcomes/Goals: controlled DM, routine hemodialysis, improved nutrition related lab values. Plan discussed with: Other SHANNON LOPEZ MD March 23, 2025 16:52
--- NOTE | 2025-03-23 17:31 | DVH ---
MRI THORACIC SPINE WITHOUT INDICATION: back pain EXAM DATE: 03/23/2025 04:40 PM COMPARISON: None PROCEDURE: Using a 1.5 Josee scanner, multisequence multiplanar imaging of the thoracic spine was obt ained. FINDINGS: The thoracic vertebral bodies are normal in height and alignment. Foci of altered signal in the T8 and T9 vertebral bodies most likely hemangiomata. At T8-T9 there is loss of disc space height. There is a left paracentral 3 mm disc protrusion abuttin g but not compressing the anterior surface of the cord. At T9-10 there is a 2 mm diffuse disc bulge e ffacing the thecal sac The cord is normal in size and signal intensity ending at T12-L1. No abnormal paravertebral soft tis samuel masses. IMPRESSION: 1. At T8-9 left paracentral 3 mm disc protrusion abutting but not compressing the anterior cord surfa ce 2. At T9-10 2 mm diffuse disc bulge effacing the thecal sac
--- NOTE | 2025-03-23 18:28 | DVH ---
PROCEDURE: MRI LUMBAR SPINE WO CONTRAST INDICATION: back pain Exam Date: 03/23/2025 04:53 PM COMPARISON: None TECHNIQUE: MRI lumbar spine without intravenous contrast. FINDINGS: The lumbar alignment is intact. Intervertebral edema at L2-3 and L4-5 raises concern for osteomyeliti s discitis. Marrow signal is heterogeneous. There are degenerative endplate changes including modic e ndplate changes with anterior and lateral osteophytes throughout the lumbar spine. The visualized dis temo spinal cord and conus medullaris are within normal limits. The conus medullaris appears to termi cary within normal limits. The visualized retroperitoneal and paraspinal soft tissues are unremarkab le. The following axial levels are detailed below: T12-L1: Unremarkable. L1-L2: There is a moderate circumferential disc bulge complicated by facet arthropathy associated w ith mild to moderate left neuroforaminal stenosis. No significant central canal stenosis. L2-L3: There is a moderate circumferential disc bulge complicated by facet arthropathy associated w ith mild to moderate bilateral neuroforaminal stenosis. No significant central canal stenosis. L3-L4: There is a moderate circumferential disc bulge complicated by facet arthropathy associated w ith mild to moderate bilateral neuroforaminal stenosis. Central canal measures 8 mm. L4-L5: There is a severe circumferential disc bulge complicated by facet arthropathy narrowing the central canal to 7 mm with associated moderate to severe bilateral neuroforaminal stenosis. L5-S1: There is a moderate circumferential disc bulge complicated by facet arthropathy associated wi th mild to moderate bilateral neuroforaminal stenosis left greater than right. No significant central canal stenosis. IMPRESSION: 1. Multilevel moderate to advanced degenerative disease. Edema in the intervertebral disc space at L2 -3 and L4-5 raises concern for osteomyelitis discitis. Clinical correlation and continued follow-up is recommended. This can be further evaluated with intravenous contrast. Moderate to severe central c anal stenosis L3-4 and L4-5. Neural foraminal stenosis as above. HS:Y
[2025-03-24] VITALS (8 sets, daily range): BP systolic 127–160; BP diastolic 44–65; PULSE 65–77; RESP 17–19; TEMP 97.5–98.7; O2SAT 95–98
[2025-03-24 05:06] LABS: Basophils # (auto) 0.1 10 ^3/uL (0-0.2); Basophils % (auto) 0.7 % (0.0-2.0); Eosinophils # (auto) 0.2 10 ^3/uL (0-0.8); Eosinophils % (auto) 1.7 % (0.0-7.0); Hematocrit 28.2 % (36.0-46.0); Hemoglobin 9.6 g/dL (12.2-16.2); Lymphocytes # (auto) 1.1 10 ^3/uL (0.4-5.4); Lymphocytes % (auto) 11.5 % (10.0-50.0); Mean Corpuscular Hemoglobin 32.2 pg (28.0-32.0); Mean Corpuscular Volume 94.5 fL (80.0-100.0); Monocytes % (auto) 10.8 % (0.0-12.0); Neutrophils # (auto) 7.3 10 ^3/uL (1.6-8.6); Neutrophils % (auto) 75.3 % (37.0-80.0); Platelet Count (auto) 291 10^3/uL (140-450); Red Blood Cells 2.99 10^6/uL (4.0-5.20); Red Cell Distribution Width 14.8 % (11.8-14.3); White Blood Cell 9.6 10^3/uL (4.4-10.8)
[2025-03-24 05:10] LABS: Chloride 100 mmol/L (98-107); Potassium 4.3 mmol/L (3.5-5.1); Sodium 137 mmol/L (136-145)
[2025-03-24 05:11] LABS: Anion Gap 15 (5-15); Carbon Dioxide 22 mmol/L (20-31)
[2025-03-24 05:16] LABS: BUN/Creatinine Ratio 13.1 (10.0-20.0)
[2025-03-24 05:25] LABS: Glucose 148 mg/dL (74-106)
[2025-03-24 05:26] LABS: Blood Urea Nitrogen 96 mg/dL (9-23)
[2025-03-24] MEDS ORDERED: SODIUM CHL 0.9% 1000 ML BAG XX ONE (07:00)
--- NOTE | 2025-03-24 11:53 | DVHPN2 ---
Progress Note - Dictate Date Seen: March 24, 2025 Medical Necessity Reason Pt with a Central, PICC or Fol: No Subjective No acute events overnight. Had dialysis. Repeat blood cultures are negative. Tunnel catheter is in place. MRI of the lumbar thoracic spine shows questionable diskitis in the lumbar spine L2 and L4 region. Patient's back pain is slightly improved. vital signs Vital Sign Date Time Temp Pulse Resp B/P (MAP) Pulse Ox O2 Delivery O2 Flow Rate FiO2 03/24/25 08:46 98.2 69 18 135/44 (74) 96 98.2 03/24/25 07:52 Nasal Cannula* 2 28 Total Intake and Output 03/23/25 03/23/25 03/24/25 15:00 23:00 07:00 Intake Total 400 ml 680 ml Output Total 720 ml Balance 400 ml -40 ml medications Current Medications Medications Dose Ordered Sig/Linda Route Start Time Stop Time Status Last Admin Dose Admin Nitroglycerin 0.4 mg Q5MINP PRN SL 03/19/25 14:30 Morphine Sulfate 2 mg Q30M PRN IV 03/19/25 14:30 Vancomycin HCl 0 ml @ 0 mls/hr UD IV 03/19/25 14:30 Acetaminophen 650 mg Q4HP PRN PO 03/19/25 14:30 03/24/25 05:10 650 MG Ondansetron HCl 4 mg Q4HPRN PRN IV 03/19/25 14:45 03/21/25 03:26 4 MG Famotidine 10 mg EOD PO 03/20/25 10:00 03/24/25 08:42 10 MG Amlodipine Besylate 10 mg DAILY PO 03/20/25 10:00 03/24/25 08:42 10 MG Clonidine HCl 0.1 mg Q4HP PRN PO 03/19/25 14:45 Diagnostic Test (Pha) 1 strip ACHS 03/19/25 17:00 03/24/25 11:33 1 STRIP Insulin Human Regular ACHS SC 03/19/25 17:00 03/24/25 05:56 2 UNITS Dextrose 50 ml UD PRN IV 03/19/25 15:00 Heparin Sodium (Porcine) 5,000 units Q12HR SC 03/20/25 22:00 03/24/25 08:43 5,000 UNITS Naloxone HCl 0.2 mg Q5MP PRN IV 03/21/25 04:45 03/21/25 04:48 0.2 MG Bumetanide 2 mg BIDD IV 03/21/25 13:30 03/23/25 17:30 2 MG objective Alert awake oriented x3. Comfortable in bed without distress. HEENT neck supple no JVD. Heart regular rate rhythm S1-S2. Lungs without rales wheezes. Abdomen soft nontender positive bowel sounds. Extremities no edema positive pulses. laboratory and microbiology Laboratory Tests 03/24/25 04:31 Test 03/24/25 04:31 Range/Units Serum Glucose 148 H 74-106 mg/dL Assessment/Plan Continue current vancomycin for pharmacy for MRSA bacteremia. I will have spine surgeon as well as Infectious Disease to make further recommendations for the diskitis. I suspect patient needs at least 4-6 weeks of IV vancomycin given her MRSA bacteremia with the dialysis for this. This is discussed with the patient. Continue rest of supportive care and treatment. Pain control. Physical therapy evaluation. Further clinical management per clinical course. Dietary Evaluation Review Comments: Add CCHO-60 and Cardiac Low fat Low Cholesterol to Pt's Renal standard Diet Expected Outcomes/Goals: controlled DM, routine hemodialysis, improved nutrition related lab values. Plan discussed with: Patient, Other SHANNON LOPEZ MD March 24, 2025 11:53
--- NOTE | 2025-03-24 12:24 | DVHPN2 ---
Progress Note Date Seen: March 24, 2025 Resident Creating Document: SONIA MEDRANO Medical Necessity Reason Pt with a Central, PICC or Fol: No Subjective Review of Systems This is a 69-year-old female patient with PMH ESRD on hemodialysis Sunday//Sunday with [facility] for the past 1 year, diabetes mellitus likely type 2 on glipizide since 2019, hypertension who was sent to the ER from her dialysis center when she experienced some midsternal chest pain radiating to the jaw which was pressure type in nature and radiating to the jaw in the arm. On my evaluation patient reports severe back pain, which is left- sided and midline lumbar region nonradiating, started last night while she was in the ER. Patient also reports fever and chills along with dizziness but denies any nausea/vomiting/diarrhea/palpitations. Patient reports making urine. Patient reports that around 2 weeks back her right tunneled catheter was draining greenish discharge for which she was given vancomycin. On arrival to the ER, patient is febrile at 100.4 F, requiring oxygen supplementation with 2 L, WBC 19, H and H 10/29, BUN/creatinine 38/4.6. Blood culture growing prelim Gram-positive cocci in cluster. Past medical history: ESRD on hemodialysis Sunday//Sunday with [facility] for the past 1 year, diabetes mellitus likely type 2 on glipizide since 2018, hypertension Social History: Lives with family, denies drinking/smoking/drug use 03/20 - Patient seen and examined at the bedside. Has midline lumbar tenderness. IR consulted for the removal of tunneled cath given the possible site of infection. 03/23-patient seen and examined at the bedside. IR consulted for tunneled catheter. Hemodialysis scheduled for tomorrow. Hold antihypertensives prior to hemodialysis. Follow up with BNP. 03/24 - patient seen and examined at the bedside. MRI Lumbar spine shows Multilevel moderate to advanced degenerative disease. Edema in the intervertebral disc space at L2-3 and L4-5 raises concern for osteomyelitis discitis. Clinical correlation and continued follow-up is recommended. This can be further evaluated with intravenous contrast. Moderate to severe central canal stenosis L3-4 and L4-5. Neural foraminal stenosis. Other Systems: Patient seen and examined by myself today on rounds with the medicine resident, I agree with the assessment and plan Objective vital signs Vital Sign Date Time Temp Pulse Resp B/P (MAP) Pulse Ox O2 Delivery O2 Flow Rate FiO2 03/24/25 08:46 98.2 69 18 135/44 (74) 96 98.2 03/24/25 07:52 Nasal Cannula* 2 28 Total Intake and Output 03/23/25 03/23/25 03/24/25 15:00 23:00 07:00 Intake Total 400 ml 680 ml Output Total 720 ml Balance 400 ml -40 ml medications Current Medications Medications Dose Ordered Sig/Linda Route Start Time Stop Time Status Last Admin Dose Admin Nitroglycerin 0.4 mg Q5MINP PRN SL 03/19/25 14:30 Morphine Sulfate 2 mg Q30M PRN IV 03/19/25 14:30 Vancomycin HCl 0 ml @ 0 mls/hr UD IV 03/19/25 14:30 Acetaminophen 650 mg Q4HP PRN PO 03/19/25 14:30 03/24/25 05:10 650 MG Ondansetron HCl 4 mg Q4HPRN PRN IV 03/19/25 14:45 03/21/25 03:26 4 MG Famotidine 10 mg EOD PO 03/20/25 10:00 03/24/25 08:42 10 MG Amlodipine Besylate 10 mg DAILY PO 03/20/25 10:00 03/24/25 08:42 10 MG Clonidine HCl 0.1 mg Q4HP PRN PO 03/19/25 14:45 Diagnostic Test (Pha) 1 strip ACHS 03/19/25 17:00 03/24/25 11:33 1 STRIP Insulin Human Regular ACHS SC 03/19/25 17:00 03/24/25 05:56 2 UNITS Dextrose 50 ml UD PRN IV 03/19/25 15:00 Heparin Sodium (Porcine) 5,000 units Q12HR SC 03/20/25 22:00 03/24/25 08:43 5,000 UNITS Naloxone HCl 0.2 mg Q5MP PRN IV 03/21/25 04:45 03/21/25 04:48 0.2 MG Bumetanide 2 mg BIDD IV 03/21/25 13:30 03/23/25 17:30 2 MG Examination Patient lying in bed, in no acute distress. R IJ tunneled cath placed. General: Obese, afebrile, palor, mucosae are moist Cardiovascular: Regular S1 and S2. No murmurs, gallops or rubs. No JVD elevation. No pedal edema Respiratory: Normal B/L air entry on room air. Clear lung sounds on auscultation Abdomen: Soft, nontender, nondistended, normoactive bowel sounds, no rebound tenderness, no organomegaly, no masses Genitourinary: Deferred MSK/skin: Mobilizes 4 limbs. Skin is dry and warm. Patient has midline lumbar tenderness and paraspinal tenderness Neurological: No motor, no sensitive deficits, normal speech. Pupils are isocoric and reactive. Psych/Mental Status: A/Ox3 laboratory and microbiology Laboratory Tests 03/24/25 04:31 Test 03/24/25 04:31 Range/Units Serum Glucose 148 H 74-106 mg/dL Microbiology Date/Time Source Procedure Growth Status 03/22/25 07:19 Blood Blood Culture - Preliminary NO GROWTH AFTER 48 HOURS OF INCUBATION. Resulted 03/20/25 20:06 Nose MRSA Screen - Final Methicillin Resistant S.aureus Complete Labs and/or images reviewed: Labs reviewed by me, Image(s) reviewed by me Problem List/Assessment/Plan Problem List/Assessment/Plan ESRD on hemodialysis T/Th/Sat Sepsis, likely source tunneled catheter-MRSA bacteremia Central line associated blood stream Infection Probable osteomyelitis Anemia likely secondary to ESRD Diabetes mellitus likely type 2 Hypertension Acute chest pain, rule out ACS Acute back pain Secondary hyperparathyroidism MRI Lumbar spine 03/23 shows Multilevel moderate to advanced degenerative disease. Edema in the intervertebral disc space at L2-3 and L4-5 raises concern for osteomyelitis discitis. Clinical correlation and continued follow-up is recommended. This can be further evaluated with intravenous contrast. Moderate to severe central canal stenosis L3-4 and L4-5. Neural foraminal stenosis. Plan: Patient examined on HD, BP stable. Stable to be discharged after hemodialysis per Nephrology. Patient will require IV vancomycin for 6 weeks with the hemodialysis given osteomyelitis, diskitis. Tunneled catheter removed Tuesday 03/20. Given the negative preliminary blood cultures 03/20, 03/21 and 03/22, IR guided tunneled catheter placement 03/23.. Hemodialysis pending. Continue strict I&Os, and adequate blood pressure control Renal ultrasound 03/2024 was unremarkable Continue IV antibiotics per primary team Avoid nephrotoxic medications Plan discussed with patient in which all questions have been answered Case discussed with Dr. Madkour Plan discussed with: Patient My Orders My Orders Orders - SONIA MEDRANO Procedure Category Date Status Time Kub Abdomen Single XY 03/23/25 Resulted View 13:04 Dietary Evaluation Review Comments: Add CCHO-60 and Cardiac Low fat Low Cholesterol to Pt's Renal standard Diet Expected Outcomes/Goals: controlled DM, routine hemodialysis, improved nutrition related lab values. SONIA MEDRANO March 24, 2025 12:24 SHALONDA CUMMINS MD March 24, 2025 18:41
[2025-03-24] MEDS: VANCOMYCIN 750mg/150ml 150 ML IV ONE (17:47)
[2025-03-24] MEDS: EPOETIN ALFA-EPBX 10,000 UNIT/1ML VIAL SC ONE (20:59)
--- NOTE | 2025-03-24 21:07 | DVHINCON2 ---
Date of service: March 24, 2025 Family History: Bone cancer G8 MOTHER Diabetes mellitus G8 FATHER Hypertension G8 MOTHER Allergies: Coded Allergies: Hydrocodone (Verified Allergy, Unknown, 03/24/25) Home Meds Active Scripts Pantoprazole Sodium Sesquihydr (Pantoprazole Sodium) 40 Mg Tab, 40 MG PO DAILY@BREAKFAST, #30 TAB Prov:SHANNON LOPEZ MD 08/28/24 Ondansetron Odt 4MG Tab (ZOFRAN PO) 4 Mg Tb, 4 MG PO Q8HPRN PRN, #20 TAB ODT TAB-DISSOLVE IN MOUTH, THEN SWALLOW Prov:SHANNON LOPEZ MD 08/28/24 Glipizide (Glipizide) 5 Mg Tab, 2.5 MG PO DAILY, #15 TAB Prov:MOHAMUD BRANNON MD 06/05/23 Reported Medications Linagliptin Base (TRADJENTA) 5 Mg Tab, 1 TAB PO DAILY 03/14/24 Amlodipine Besylate (Amlodipine Besylate) 5 Mg Tab, 1 TAB PO DAILY 03/14/24 Ferrous Sulfate (Ferrous Sulfate) 325 Mg Tab, 325 MG PO BIDWM for 30 Days, MG 03/13/24 Alendronate Sodium (Alendronate Sodium) 70 Mg Tab, 1 TAB PO QWEEKLY 06/06/23 Rosuvastatin Calcium (Rosuvastatin Calcium) 20 Mg Tab, 1 TAB PO DAILY 06/06/23 Ergocalciferol (Vitamin D) 50,000 Unit Cap, 1 CAP PO QWEEKLY 06/06/23 Vital Signs Vital Signs Date Time Temp Pulse Resp B/P (MAP) Pulse Ox O2 Delivery O2 Flow Rate FiO2 03/24/25 20:00 Nasal Cannula* 2 28 03/24/25 17:07 127/56 03/24/25 16:38 97.5 71 18 98 97.5 Labs/Diagnostic Data Labs Test 03/24/25 17:00 03/24/25 12:50 03/24/25 04:31 03/23/25 11:50 Range/Units POC Glucose 158 H 70-106 mg/dl White Blood Count 9.6 4.4-10.8 10^3/uL Red Blood Count 2.99 L 4.0-5.20 10^6/uL Hemoglobin 9.6 L 12.2-16.2 g/dL Hematocrit 28.2 L 36.0-46.0 % Mean Corpuscular Volume 94.5 80.0-100.0 fL Mean Corpuscular Hemoglobin 32.2 H 28.0-32.0 pg Mean Corpuscular Hemoglobin Concent 34.0 32.0-36.0 g/dL Red Cell Distribution Width 14.8 H 11.8-14.3 % Platelet Count 291 140-450 10^3/uL Mean Platelet Volume 8.4 6.9-10.8 fL Neutrophils (%) (Auto) 75.3 37.0-80.0 % Lymphocytes (%) (Auto) 11.5 10.0-50.0 % Monocytes (%) (Auto) 10.8 0.0-12.0 % Eosinophils (%) (Auto) 1.7 0.0-7.0 % Basophils (%) (Auto) 0.7 0.0-2.0 % Neutrophils # (Auto) 7.3 1.6-8.6 10 ^3/uL Lymphocytes # (Auto) 1.1 0.4-5.4 10 ^3/uL Monocytes # (Auto) 1.0 0-1.3 10 ^3/uL Eosinophils # (Auto) 0.2 0-0.8 10 ^3/uL Basophils # (Auto) 0.1 0-0.2 10 ^3/uL Nucleated Red Blood Cells 0.0 % Sodium Level 137 136-145 mmol/L Potassium Level 4.3 3.5-5.1 mmol/L Chloride Level 100 98-107 mmol/L Carbon Dioxide Level 22 20-31 mmol/L Anion Gap 15 5-15 Blood Urea Nitrogen 96 *H 9-23 mg/dL Creatinine 7.34 H 0.550-1.02 mg/dL Glomerular Filtration Rate Calc 6 >90 mL/min BUN/Creatinine Ratio 13.1 10.0-20.0 Serum Glucose 148 H 74-106 mg/dL Calcium Level 9.0 8.7-10.4 mg/dL Random Vancomycin Level 15.5 H 5-10 ug/mL Beta HCG, Quantitative 10.0 H 1.5-4.2 mIU/mL Test 03/23/25 06:00 03/21/25 04:30 03/20/25 05:30 03/19/25 15:44 Range/Units B-Type Natriuretic Peptide 703.70 0-100 pg/mL Differential Total Cells Counted 100.0 100 Neutrophils % (Manual) 80 37.0-80.0 Band Neutrophils % (Manual) 2 Lymphocytes % (Manual) 9 L 10.0-50.0 Monocytes % (Manual) 8 0-12 Eosinophils % (Manual) 1 0-7 Basophils % (Manual) 0 0.0-2.0 Metamyelocytes % (manual) 0 Myelocytes % (Manual) 0 Promyelocytes % (Manual) 0 Blast Cells % (Manual) 0 Reactive Lymphocytes 0 Platelet Estimate Adequate Phosphorus Level 5.7 H 2.4-5.1 mg/dL Magnesium Level 2.0 1.6-2.6 mg/dL Vitamin D 25-Hydroxy 79.0 30.0-100 ng/mL Parathyroid Hormone (Intact) 589.5 H 18.4-80.1 pg/mL Influenza Type A Antigen Negative Negative Influenza Type B Antigen Negative Negative Test 03/19/25 14:00 03/19/25 11:00 Range/Units Lactic Acid Level 1.3 0.4-2.0 mmol/L Troponin I High Sensitivity 32 </=34 ng/L Prothrombin Time 11.5 9.3-11.8 sec Prothrombin Time INR 1.09 0.9-1.15 Activated Partial Thromboplast Time 29.3 24.5-34.5 SEC Hemoglobin A1c 6.2 H <5.7 % A1C Triglycerides Level 117 < 150 mg/dL Cholesterol Level 194 < 200 mg/dL LDL Cholesterol 125 H < 100 mg/dL HDL Cholesterol 50 40-59 mg/dL Microbiology Date/Time Source Procedure Growth Status 03/22/25 07:19 Blood Blood Culture - Preliminary NO GROWTH AFTER 48 HOURS OF INCUBATION. Resulted 03/20/25 20:06 Nose MRSA Screen - Final Methicillin Resistant S.aureus Complete Problems(with codes): (1) Bacteremia due to methicillin resistant Staphylococcus aureus (2) [id number] kidney injury (3) Hemodialysis patient (4) Acute chest pain (5) Anginal equivalent (6) Fever Plan/Recommendation ASSESSMENT AND PLAN: ID Problem List: - End-stage renal disease (ESRD) on dialysis - Hypertension - Diabetes mellitus - History of catheter-associated MRSA bacteremia - Spinal osteomyelitis/discitis (lumbar) - Chest pain COPD Assessment: This is a 69-year-old female with a significant history of ESRD on dialysis, hypertension, diabetes, and COPD, presenting with chest pain since her last dialysis session. Chest pain described as dull, sternal, and initially associated with left arm numbness; also noted is nausea without fever or chills. No active tobacco, alcohol, or illicit drug use. On admission, patient was febrile with a lactic acid of 4.3, WBC 11.1. Four out of four blood cultures grew MRSA. Dialysis catheter was removed on 03/20. Since then, repeat blood cultures have been negative. Vancomycin therapy has been in place since diagnosis; organism is vancomycin-sensitive, VINNY 1. Cardiac: Echocardiogram on 03/19 showed sclerotic aortic valve leaflets, no aortic stenosis, mild mitral annular calcification, mild mitral regurgitation, and trivial pericardial effusion; study limited by body habitus. EKG showed left atrial abnormality, normal progression, and prolonged QT interval. Cardiology does not recommend ANTHONY given age and comorbidities. Spine: Recent complaints of back pain. Lumbar MRI demonstrates multilevel moderate to advanced degenerative disc disease, edema at L2-3, and L4 disc fragment with concern for osteomyelitis/discitis. Other: Large colonic fecal burden on imaging. Plan: - Continue IV vancomycin for 6 weeks for spinal osteomyelitis/discitis. - Surveillance blood cultures to confirm eradication of MRSA once blood cultures are complete - Repeat transthoracic echocardiogram (TTE) as outpatient after completion of antibiotics. - would consider ANTHONY; high risk due to age/comorbidities. - Lumbar spine MRI to be repeated in 6 months to confirm resolution of osteomyelitis/discitis. - Physical therapy to assist with recovery post-antibiotic therapy. - New dialysis catheter placed on 03/23; will require continued dialysis management. - Continue monitoring for recurrent infection and manage comorbid conditions accordingly. - Treat as presumptive endocarditis given persistent MRSA bacteremia in setting of spinal infection; ANTHONY deferred, - Address constipation as indicated by colonic fecal burden on imaging. Assessment and plan discussed with patient as above. Plan subject to change pending incorporation of new or incoming diagnostics. Thank you for the consult. Infectious disease will continue to follow. Please contact ID with any questions or concerns. Bharati Pinzon M.D. [facility] Ph: ? History: The patient's chart and medications were reviewed in detail and the patient was seen and examined. History obtained from: patient Female, age 69 (sex and age: as stated in transcript, "[age] female") with ESRD on dialysis, hypertension, diabetes, and COPD. Presented with sternal chest pain since last dialysis session, associated initial left arm numbness and recent nausea, but without fever or chills. History notable for recent MRSA ba cteremia associated with dialysis catheter. Patient denies smoking, alcohol, or drug use. Review of Systems: A complete 10-system review of systems was completed and negative except as noted in the HPI or here. - CONSTITUTIONAL: Denies fever or chills. - HEENT: Not discussed. - RESPIRATORY: Not discussed. - CARDIOVASCULAR: Chest pain present. Left arm numbness at onset. - GI: Nausea. No history of vomiting or abdominal pain provided. Fecal burden noted on imaging. - : Not discussed. - MSK: Back pain present. - SKIN: Not discussed. - NEUROLOGICAL: Left arm numbness at pain onset. No other neurologic complaints reported. - PSYCHIATRIC: Not discussed. Past Medical History: - End-stage renal disease (on dialysis) - Hypertension - Diabetes mellitus COPD Past Surgical History: Not discussed. Home Medications: Not detailed in transcript. Allergies: Not discussed. Family History: Not discussed. Social History: - Tobacco: Denied. - Alcohol: Denied. - Illicit drug use: Denied. - Family structure: Not discussed. Social Determinants of Health: Not discussed. Objective: Vital Signs on Arrival: Temperature: 38.1C Pulse: 86 Respiratory rate: 16 Blood pressure: 123 (units not specified) Most Recent Vital Signs: Pulse: 95 SpO2: 95% on 2L nasal cannula Physical Exam: General: NAD Neck: Supple. No masses. HEENT: PERRL. Normal lids and conjunctiva. Moist mucous membranes. Oropharynx without lesions, exudates, or excessive erythema. Normal appearance of external nose and ears. Heart: Regular rhythm, normal rate. No murmur. No lower extremity edema. Lungs: Normal respiratory effort. Clear to auscultation bilaterally. No wheezes. No crackles. Abdomen: Soft. Non-tender. Non-distended. No masses or abdominal hernia. Msk: No digital cyanosis. Normal strength and tone in all 4 li mbs. Skin: Warm and dry, no rashes. Neuro: Alert. No facial droop or slurred speech. Extra-ocular movements intact. Sensation intact to soft touch in all 4 limbs. Psych: Appropriate mood. Full affect. Oriented to person, place, time, and situation. Lines: Recent dialysis catheter removed on 03/20. New catheter placed on 03/23. Diagnostic Studies: Available diagnostic studies were reviewed personally. Significant relevant results and findings are outlined below or addressed in the Assessment and Plan above. Pertinent Imaging: - Chest imaging: No acute intracranial or intrathoracic abnormality. - MRI Lumbar spine: Multilevel moderate to advanced degenerative disc disease; edema at L2-3; L4 disc fragment; concern for osteomyelitis/discitis. - MRI Thoracic spine: T8-9 left paracentral 3mm disc protrusion abutting, not compressing the anterior cord surface; T9 <2mm diffuse disc bulge facing the thecal sac. - Colonic imaging (KUB): Large fecal burden. - Echocardiogram (03/19): Sclerotic aortic valve leaflets, mild mitral annular calcification, mild mitral regurgitation, trivial pericardial effusion; limited by body habitus. - EKG: Left atrial abnormality, normal progression, prolonged QT interval. Laboratory Data: - Lactic acid: 4.3 WBC: 11.1 - Calcium: 9.2 - Creatinine: 2.75 BUN: 23 - Sodium: 137 - MRSA (blood): 4/4 positive on admission; negative since 03/20 Microbiology: - Admission blood cultures positive for MRSA (4/4) - Blood cultures negative since 03/20 Plan discussed with: Patient BHARATI PINZON MD March 24, 2025 21:06
[2025-03-25] VITALS (8 sets, daily range): BP systolic 97–144; BP diastolic 47–68; PULSE 66–74; RESP 16–19; TEMP 97.5–98.8; O2SAT 96–99
[2025-03-25 06:17] LABS: Basophils # (auto) 0.1 10 ^3/uL (0-0.2); Basophils % (auto) 0.9 % (0.0-2.0); Eosinophils # (auto) 0.2 10 ^3/uL (0-0.8); Hematocrit 28.8 % (36.0-46.0); Lymphocytes # (auto) 1.3 10 ^3/uL (0.4-5.4); Lymphocytes % (auto) 13.5 % (10.0-50.0); Mean Corpuscular Hemoglobin 32.6 pg (28.0-32.0); Mean Corpuscular Hgb Conc. 34.6 g/dL (32.0-36.0); Mean Corpuscular Volume 94.2 fL (80.0-100.0); Monocytes # (auto) 1.1 10 ^3/uL (0-1.3); Monocytes % (auto) 11.5 % (0.0-12.0); Neutrophils % (auto) 72.1 % (37.0-80.0); Nucleated Red Blood Cells % 0.1 %; Platelet Count (auto) 307 10^3/uL (140-450); Red Blood Cells 3.06 10^6/uL (4.0-5.20); Red Cell Distribution Width 14.6 % (11.8-14.3); White Blood Cell 9.7 10^3/uL (4.4-10.8)
[2025-03-25 06:28] LABS: Anion Gap 13 (5-15); Carbon Dioxide 27 mmol/L (20-31); Chloride 98 mmol/L (98-107); Potassium 4.2 mmol/L (3.5-5.1); Sodium 138 mmol/L (136-145)
[2025-03-25 06:30] LABS: Calcium 9.5 mg/dL (8.7-10.4)
[2025-03-25 06:35] LABS: BUN/Creatinine Ratio 11.4 (10.0-20.0); Blood Urea Nitrogen 60 mg/dL (9-23); Glucose 132 mg/dL (74-106)
[2025-03-25 10:56] LABS: Hepatitis A Ab IgM Negative
[2025-03-25 10:57] LABS: Hepatitis B Core IgM Negative (Negative); Hepatitis B Surface Antigen Negative (Negative); Hepatitis C Antibody Negative (Negative)
--- NOTE | 2025-03-25 14:10 | DVHPN2 ---
Progress Note Date Seen: March 25, 2025 Resident Creating Document: SONIA MEDRANO RESIDENT Medical Necessity Reason Pt with a Central, PICC or Fol: No Subjective Review of Systems This is a 69-year-old female patient with PMH ESRD on hemodialysis Sunday//Sunday with [facility] for the past 1 year, diabetes mellitus likely type 2 on glipizide since 2019, hypertension who was sent to the ER from her dialysis center when she experienced some midsternal chest pain radiating to the jaw which was pressure type in nature and radiating to the jaw in the arm. On my evaluation patient reports severe back pain, which is left- sided and midline lumbar region nonradiating, started last night while she was in the ER. Patient also reports fever and chills along with dizziness but denies any nausea/vomiting/diarrhea/palpitations. Patient reports making urine. Patient reports that around 2 weeks back her right tunneled catheter was draining greenish discharge for which she was given vancomycin. On arrival to the ER, patient is febrile at 100.4 F, requiring oxygen supplementation with 2 L, WBC 19, H and H 09/02, BUN/creatinine 38/4.6. Blood culture growing prelim Gram-positive cocci in cluster. Past medical history: ESRD on hemodialysis Sunday//Sunday with [facility] for the past 1 year, diabetes mellitus likely type 2 on glipizide since 2018, hypertension Social History: Lives with family, denies drinking/smoking/drug use 03/20 - Patient seen and examined at the bedside. Has midline lumbar tenderness. IR consulted for the removal of tunneled cath given the possible site of infection. 03/23-patient seen and examined at the bedside. IR consulted for tunneled catheter. Hemodialysis scheduled for tomorrow. Hold antihypertensives prior to hemodialysis. Follow up with BNP. 03/24 - patient seen and examined at the bedside. MRI Lumbar spine shows Multilevel moderate to advanced degenerative disease. Edema in the intervertebral disc space at L2-3 and L4-5 raises concern for osteomyelitis discitis. Clinical correlation and continued follow-up is recommended. This can be further evaluated with intravenous contrast. Moderate to severe central canal stenosis L3-4 and L4-5. Neural foraminal stenosis. 03/25-patient seen and examined at the bedside. BUN/creatinine trending down. Underwent hemodialysis 03/24. Received IV vancomycin 750 mg yesterday. Other Systems: Patient seen and examined by myself today on rounds with the medicine resident, I agree with his assessment and plan Objective vital signs Vital Sign Date Time Temp Pulse Resp B/P (MAP) Pulse Ox O2 Delivery O2 Flow Rate FiO2 03/25/25 13:00 97.5 73 16 97/61 (73) 99 97.5 03/25/25 07:30 Nasal Cannula* 2 28 Total Intake and Output 03/24/25 03/24/25 03/25/25 15:00 23:00 07:00 Intake Total 540 ml 220 ml Balance 540 ml 220 ml medications Current Medications Medications Dose Ordered Sig/Linda Route Start Time Stop Time Status Last Admin Dose Admin Nitroglycerin 0.4 mg Q5MINP PRN SL 03/19/25 14:30 Morphine Sulfate 2 mg Q30M PRN IV 03/19/25 14:30 Vancomycin HCl 0 ml @ 0 mls/hr UD IV 03/19/25 14:30 Acetaminophen 650 mg Q4HP PRN PO 03/19/25 14:30 03/25/25 09:25 650 MG Ondansetron HCl 4 mg Q4HPRN PRN IV 03/19/25 14:45 03/21/25 03:26 4 MG Famotidine 10 mg EOD PO 03/20/25 10:00 03/24/25 08:42 10 MG Amlodipine Besylate 10 mg DAILY PO 03/20/25 10:00 03/25/25 09:23 10 MG Clonidine HCl 0.1 mg Q4HP PRN PO 03/19/25 14:45 Diagnostic Test (Pha) 1 strip ACHS 03/19/25 17:00 03/25/25 11:30 1 STRIP Insulin Human Regular ACHS SC 03/19/25 17:00 03/25/25 11:30 3 UNITS Dextrose 50 ml UD PRN IV 03/19/25 15:00 Heparin Sodium (Porcine) 5,000 units Q12HR SC 03/20/25 22:00 03/25/25 09:23 5,000 UNITS Naloxone HCl 0.2 mg Q5MP PRN IV 03/21/25 04:45 03/21/25 04:48 0.2 MG Bumetanide 2 mg BIDD IV 03/21/25 13:30 03/25/25 06:22 2 MG Examination Patient lying in bed, in no acute distress. R IJ tunneled cath placed. General: Obese, afebrile, palor, mucosae are moist Cardiovascular: Regular S1 and S2. No murmurs, gallops or rubs. No JVD elevation. No pedal edema Respiratory: Normal B/L air entry on room air. Clear lung sounds on auscultation Abdomen: Soft, nontender, nondistended, normoactive bowel sounds, no rebound tenderness, no organomegaly, no masses Genitourinary: Deferred MSK/skin: Mobilizes 4 limbs. Skin is dry and warm. Patient has midline lumbar tenderness and paraspinal tenderness Neurological: No motor, no sensitive deficits, normal speech. Pupils are isocoric and reactive. Psych/Mental Status: A/Ox3 laboratory and microbiology Laboratory Tests 03/25/25 04:55 Test 03/25/25 04:55 Range/Units Serum Glucose 132 H 74-106 mg/dL Microbiology Date/Time Source Procedure Growth Status 03/22/25 07:19 Blood Blood Culture - Preliminary NO GROWTH AFTER 72 HOURS OF INCUBATION. 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 Edema in the intervertebral disc space at L2-3 and L4-5 raises concern for osteomyelitis discitis. Clinical correlation and continued follow-up is recommended. This can be further evaluated with intravenous contrast. Moderate to severe central canal stenosis L3-4 and L4-5. Neural foraminal stenosis. Plan: Hemodialysis tomorrow Patient underwent hemodialysis 03/24. Stable to be discharged per Nephrology. Patient will require IV vancomycin for 6 weeks with the hemodialysis given osteomyelitis, diskitis. Tunneled catheter removed Tuesday 03/20. Given the negative preliminary blood cultures 03/20, 03/21 and 03/22, IR guided tunneled catheter placement 03/23. ID recommended IV vancomycin with dialysis 750 mg every session Continue strict I&Os, and adequate blood pressure control Renal ultrasound 03/2024 was unremarkable Continue IV antibiotics per primary team Avoid nephrotoxic medications Advised Physical therapy Diet renal Plan discussed with patient in which all questions have been answered Case discussed with Dr. Cummins Plan discussed with: Patient Dietary Evaluation Review Comments: Add CCHO-60 and Cardiac Low fat Low Cholesterol to Pt's Renal standard Diet Expected Outcomes/Goals: controlled DM, routine hemodialysis, improved nutrition related lab values. SONIA MEDRANO RESIDENT March 25, 2025 14:10 SHALONDA CUMMINS MD March 25, 2025 16:13
[2025-03-25] MEDS: METHOCARBAMOL 500 MG TAB PO SCH (15:15)
--- NOTE | 2025-03-25 15:36 | DVHINCON2 ---
Consultation - Spinal Surgery Date Seen: March 25, 2025 Referring Physician Referring Physician Attending Doctor: Shannon Lopez MD Reason for Consultation Reason for Visit: Chest pain and fever History of Present Illness History of Present Illness History of Present Illness 69-year-old female brought in by ambulance with prior history of dialysis-T, TH, Sat, hypertension, diabetes; surgical history of appendectomy, cholecystectomy, in chief complaining of chest pain. EMS report that the patient is a poor historian but informed in the the chest pain started last night which was nonradiating and sternal with dull ache pain. Patient went to her dialysis this morning 5 am, in started to get left arm numbness at approximately 7 am. In notes on having nausea. Denies chills, fever, /V/D, SOB. No other associated symptoms, modifiers, recent injuries or sick contacts present at this time. In the ER she is noted to have a temperature in the 100 range. Given her dialysis catheter with a fever and elevated WBC it is felt patient warrants admission and further evaluation to rule out bacteremia or catheter related infection. Spine H&P, patient is aware that she has had a bone infection in the past. She verbalized that she understands the plan for her to be on vancomycin for a while. Past Medical/Surgical History Past Medical/Surgical History Past Medical History Hypertension, end-stage renal disease on hemodialysis, GERD, anemia of chronic kidney disease, diabetes mellitus type 2 Past Surgical History Appendectomy, Cholecystectomy Family and Social History Family and Social History Family History: Hypertension Smoke: No ALCOHOL: occassional Lives: with Family Allergies and medications Allergies: Coded Allergies: Hydrocodone (Verified Allergy, Unknown, 03/24/25) Home Meds Active Scripts Pantoprazole Sodium Sesquihydr (Pantoprazole Sodium) 40 Mg Tab, 40 MG PO DAILY@BREAKFAST, #30 TAB Prov:SHANNON LOPEZ MD 08/28/24 Ondansetron Odt 4MG Tab (ZOFRAN PO) 4 Mg Tb, 4 MG PO Q8HPRN PRN, #20 TAB ODT TAB-DISSOLVE IN MOUTH, THEN SWALLOW Prov:SHANNON LOPEZ MD 08/28/24 Glipizide (Glipizide) 5 Mg Tab, 2.5 MG PO DAILY, #15 TAB Prov:MOHAMUD BRANNON MD 06/05/23 Reported Medications Linagliptin Base (TRADJENTA) 5 Mg Tab, 1 TAB PO DAILY 03/14/24 Amlodipine Besylate (Amlodipine Besylate) 5 Mg Tab, 1 TAB PO DAILY 03/14/24 Ferrous Sulfate (Ferrous Sulfate) 325 Mg Tab, 325 MG PO BIDWM for 30 Days, MG 03/13/24 Alendronate Sodium (Alendronate Sodium) 70 Mg Tab, 1 TAB PO QWEEKLY 06/06/23 Rosuvastatin Calcium (Rosuvastatin Calcium) 20 Mg Tab, 1 TAB PO DAILY 06/06/23 Ergocalciferol (Vitamin D) 50,000 Unit Cap, 1 CAP PO QWEEKLY 06/06/23 Review of systems Review of Systems: HEENT:Normal, CVS:Abnormal (Patient complaining of chest pain), RESPIRATORY:Normal, GI:Normal, :Normal, MSK:Normal, NEURO:Normal Examination Vital signs Imaging PROCEDURE(s): MST4 - THORACIC SPINE WITHOUT REASON: back pain ORDER NUMBER(s): [id number], ACCESSION NUMBER(s): [id number] MRI THORACIC SPINE WITHOUT INDICATION: back pain EXAM DATE: 03/23/2025 04:40 PM COMPARISON: None PROCEDURE: Using a 1.5 Josee scanner, multisequence multiplanar imaging of the thoracic spine was obtained. FINDINGS: The thoracic vertebral bodies are normal in height and alignment. Foci of altered signal in the T8 and T9 vertebral bodies most likely hemangiomata. At T8-T9 there is loss of disc space height. There is a left paracentral 3 mm disc protrusion abutting but not compressing the anterior surface of the cord. At T9-10 there is a 2 mm diffuse disc bulge effacing the thecal sac The cord is normal in size and signal intensity ending at T12-L1. No abnormal paravertebral soft tissue masses. IMPRESSION: 1. At T8-9 left paracentral 3 mm disc protrusion abutting but not compressing the anterior cord surface 2. At T9-10 2 mm diffuse disc bulge effacing the thecal sac EDURE(s): MSL - LUMBAR SPINE WO CONTRAST REASON: back pain ORDER NUMBER(s): [id number], ACCESSION NUMBER(s): [id number] PROCEDURE: MRI LUMBAR SPINE WO CONTRAST INDICATION: back pain Exam Date: 03/23/2025 04:53 PM COMPARISON: None TECHNIQUE: MRI lumbar spine without intravenous contrast. FINDINGS: The lumbar alignment is intact. Intervertebral edema at L2-3 and L4-5 raises concern for osteomyelitis discitis. Marrow signal is heterogeneous. There are degenerative endplate changes including modic endplate changes with anterior and lateral osteophytes throughout the lumbar spine. The visualized distal spinal cord and conus medullaris are within normal limits. The conus medullaris appears to terminate within normal limits. The visualized retroperitoneal and paraspinal soft tissues are unremarkable. The following axial levels are detailed below: T12-L1: Unremarkable. L1-L2: There is a moderate circumferential disc bulge complicated by facet arthropathy associated with mild to moderate left neuroforaminal stenosis. No significant central canal stenosis. L2-L3: There is a moderate circumferential disc bulge complicated by facet arthropathy associated with mild to moderate bilateral neuroforaminal stenosis. No significant central canal stenosis. L3-L4: There is a moderate circumferential disc bulge complicated by facet arthropathy associated with mild to moderate bilateral neuroforaminal stenosis. Central canal measures 8 mm. L4-L5: There is a severe circumferential disc bulge complicated by facet arthropathy narrowing the central canal to 7 mm with associated moderate to severe bilateral neuroforaminal stenosis. L5-S1: There is a moderate circumferential disc bulge complicated by facet arthropathy associated with mild to moderate bilateral neuroforaminal stenosis left greater than right. No significant central canal stenosis. IMPRESSION: 1. Multilevel moderate to advanced degenerative disease. Edema in the intervertebral disc space at L2-3 and L4-5 raises concern for osteomyelitis discitis. Clinical correlation and continued follow-up is recommended. This can be further evaluated with intravenous contrast. Moderate to severe central canal stenosis L3-4 and L4-5. Neural foraminal stenosis as above. PROCEDURE(s): LS - LUMBAR SPINE 4+ VIEW REASON: backpain ORDER NUMBER(s): [id number], ACCESSION NUMBER(s): [id number] CLINICAL INDICATION: backpain TECHNIQUE: 5 radiographic views of the lumbar spine were obtained. Comparison: CT abdomen and pelvis 08/26/2024 FINDINGS/IMPRESSION: 5 [id number]-[id number] lumbar-type vertebra. Straightening of the lumbar lordosis. Multilevel chronic appearing mild loss of vertebral body height of the lumbar spine. Otherwise, no evidence for acute traumatic fractures or spondylolisthesis. Multilevel moderate to severe degenerative changes of the lumbar spine. If symptoms persist, consider CT/MRI for further evaluation. Vital Signs Date Time Temp Pulse Resp B/P (MAP) Pulse Ox O2 Delivery O2 Flow Rate FiO2 03/25/25 13:00 97.5 73 16 97/61 (73) 99 97.5 03/25/25 07:30 Nasal Cannula* 2 28 Medications Current Medications Medications (Trade) Dose Ordered Sig/Linda Route PRN Reason Start Time Stop Time Status Last Admin Methocarbamol (Robaxin) 500 mg BID PO 03/25/25 15:15 UNV Laboratory Labs Test 03/25/25 11:15 03/25/25 04:55 03/24/25 12:50 03/24/25 04:31 Range/Units POC Glucose 171 H 70-106 mg/dl White Blood Count 9.7 4.4-10.8 10^3/uL Red Blood Count 3.06 L 4.0-5.20 10^6/uL Hemoglobin 10.0 L 12.2-16.2 g/dL Hematocrit 28.8 L 36.0-46.0 % Mean Corpuscular Volume 94.2 80.0-100.0 fL Mean Corpuscular Hemoglobin 32.6 H 28.0-32.0 pg Mean Corpuscular Hemoglobin Concent 34.6 32.0-36.0 g/dL Red Cell Distribution Width 14.6 H 11.8-14.3 % Platelet Count 307 140-450 10^3/uL Mean Platelet Volume 8.3 6.9-10.8 fL Neutrophils (%) (Auto) 72.1 37.0-80.0 % Lymphocytes (%) (Auto) 13.5 10.0-50.0 % Monocytes (%) (Auto) 11.5 0.0-12.0 % Eosinophils (%) (Auto) 2.0 0.0-7.0 % Basophils (%) (Auto) 0.9 0.0-2.0 % Neutrophils # (Auto) 7.0 1.6-8.6 10 ^3/uL Lymphocytes # (Auto) 1.3 0.4-5.4 10 ^3/uL Monocytes # (Auto) 1.1 0-1.3 10 ^3/uL Eosinophils # (Auto) 0.2 0-0.8 10 ^3/uL Basophils # (Auto) 0.1 0-0.2 10 ^3/uL Nucleated Red Blood Cells 0.1 % Sodium Level 138 136-145 mmol/L Potassium Level 4.2 3.5-5.1 mmol/L Chloride Level 98 98-107 mmol/L Carbon Dioxide Level 27 20-31 mmol/L Anion Gap 13 5-15 Blood Urea Nitrogen 60 #H 9-23 mg/dL Creatinine 5.25 H 0.550-1.02 mg/dL Glomerular Filtration Rate Calc 8 >90 mL/min BUN/Creatinine Ratio 11.4 10.0-20.0 Serum Glucose 132 H 74-106 mg/dL Calcium Level 9.5 8.7-10.4 mg/dL Hepatitis A IgM Antibody Negative Hepatitis B Surface Antigen Negative Negative Hepatitis B Core IgM Antibody Negative Negative Hepatitis C Antibody Negative Negative Random Vancomycin Level 15.5 H 5-10 ug/mL Test 03/23/25 11:50 03/23/25 06:00 03/21/25 04:30 03/20/25 05:30 Range/Units Beta HCG, Quantitative 10.0 H 1.5-4.2 mIU/mL B-Type Natriuretic Peptide 703.70 0-100 pg/mL Differential Total Cells Counted 100.0 100 Neutrophils % (Manual) 80 37.0-80.0 Band Neutrophils % (Manual) 2 Lymphocytes % (Manual) 9 L 10.0-50.0 Monocytes % (Manual) 8 0-12 Eosinophils % (Manual) 1 0-7 Basophils % (Manual) 0 0.0-2.0 Metamyelocytes % (manual) 0 Myelocytes % (Manual) 0 Promyelocytes % (Manual) 0 Blast Cells % (Manual) 0 Reactive Lymphocytes 0 Platelet Estimate Adequate Phosphorus Level 5.7 H 2.4-5.1 mg/dL Magnesium Level 2.0 1.6-2.6 mg/dL Vitamin D 25-Hydroxy 79.0 30.0-100 ng/mL Parathyroid Hormone (Intact) 589.5 H 18.4-80.1 pg/mL Test 03/19/25 15:44 03/19/25 14:00 03/19/25 11:00 Range/Units Influenza Type A Antigen Negative Negative Influenza Type B Antigen Negative Negative Lactic Acid Level 1.3 0.4-2.0 mmol/L Troponin I High Sensitivity 32 </=34 ng/L Prothrombin Time 11.5 9.3-11.8 sec Prothrombin Time INR 1.09 0.9-1.15 Activated Partial Thromboplast Time 29.3 24.5-34.5 SEC Hemoglobin A1c 6.2 H <5.7 % A1C Triglycerides Level 117 < 150 mg/dL Cholesterol Level 194 < 200 mg/dL LDL Cholesterol 125 H < 100 mg/dL HDL Cholesterol 50 40-59 mg/dL Microbiology Date/Time Source Procedure Growth Status 03/22/25 07:19 Blood Blood Culture - Preliminary NO GROWTH AFTER 72 HOURS OF INCUBATION. Resulted 03/20/25 20:06 Nose MRSA Screen - Final Methicillin Resistant S.aureus Complete Examination: GENERAL:Normal, HEENT:Normal (Patient does state that she occasionally gets neck pain and headaches), NECK:Normal (Occasional bilateral neck pain and pain behind the ears), LUNGS:Normal, ABDOMEN:Normal, MSK:Abnormal (Patient does state she has low back pain which does radiate down her legs), SKIN:Normal, NEURO:Normal (Patient is still strong 5/5 to all extremities, she does have limitations when going from sitting to standing and ambulating due to low back pain), :Normal Problem List/Assessment/Plan Problems: (1) Osteomyelitis of vertebra, lumbar region (2) Lumbar stenosis with neurogenic claudication (3) Herniated vertebral disc Assessment and Plan T8-9 left paracentral 3 mm disc protrusion abutting but not compressing the anterior cord surface T9-10 2 mm diffuse disc bulge effacing the thecal sac Lumbar stenosis L3-4 and L4-5 multilevel lumbar Neural foraminal stenosis of most concern L2-3 and L4-5 osteomyelitis discitis Continue supportive care per admitting team's discretion TLSO brace to be used for mobilization ensure patient is getting her scheduled muscle relaxers Recommend following ID recommendations to rule out osteomyelitis At this time the patient was not need spine surgery, we will follow along while the patient is in-house The patient is starts to develop a neurological decline, the recommendations will be re-evaluated Patient will need to be on long-term antibiotics prior to any surgical consideration for other findings. Patient will need to follow up with ID as an outpatient as well as PCP for further care and treatment Call with questions Ant Ruby [facility] Orthopaedic Spine Surgery nurse practitioner For Dr Gelacio Mayen Patient was examined, chart reviewed, labs evaluated, and diagnostic studies and findings analyzed. Case was discussed with Dr. Dante Mayen who formulated the plan of care. This medical document was created using an electronic medical record system with [employer] dictation system. Although this document has been carefully reviewed, there might still be some phonetic and typographical errors. These areas are purely typographical due to imperfections of the software programs, and do not reflect any compromise in the patient's medical care. Plan discussed with Plan discussed with: Patient SANKET RUBY NP March 25, 2025 15:36
--- NOTE | 2025-03-25 15:57 | DVHPN2 ---
Progress Note - Dictate Date Seen: March 25, 2025 Medical Necessity Reason Pt with a Central, PICC or Fol: No Subjective No acute events overnight. Clinically stable. Advised her to go to senior living facility given the complains of back pain however she refusing. She wants to go home and tells me she has a caregiver. She already has a walker and a wheelchair at home and things home PT she will be fine. vital signs Vital Sign Date Time Temp Pulse Resp B/P (MAP) Pulse Ox O2 Delivery O2 Flow Rate FiO2 03/25/25 13:00 97.5 73 16 97/61 (73) 99 97.5 03/25/25 07:30 Nasal Cannula* 2 28 Total Intake and Output 03/24/25 03/24/25 03/25/25 15:00 23:00 07:00 Intake Total 540 ml 220 ml Balance 540 ml 220 ml medications Current Medications Medications Dose Ordered Sig/Linda Route Start Time Stop Time Status Last Admin Dose Admin Nitroglycerin 0.4 mg Q5MINP PRN SL 03/19/25 14:30 Morphine Sulfate 2 mg Q30M PRN IV 03/19/25 14:30 Vancomycin HCl 0 ml @ 0 mls/hr UD IV 03/19/25 14:30 Acetaminophen 650 mg Q4HP PRN PO 03/19/25 14:30 03/25/25 09:25 650 MG Ondansetron HCl 4 mg Q4HPRN PRN IV 03/19/25 14:45 03/21/25 03:26 4 MG Famotidine 10 mg EOD PO 03/20/25 10:00 03/24/25 08:42 10 MG Amlodipine Besylate 10 mg DAILY PO 03/20/25 10:00 03/25/25 09:23 10 MG Clonidine HCl 0.1 mg Q4HP PRN PO 03/19/25 14:45 Diagnostic Test (Pha) 1 strip ACHS 03/19/25 17:00 03/25/25 11:30 1 STRIP Insulin Human Regular ACHS SC 03/19/25 17:00 03/25/25 11:30 3 UNITS Dextrose 50 ml UD PRN IV 03/19/25 15:00 Heparin Sodium (Porcine) 5,000 units Q12HR SC 03/20/25 22:00 03/25/25 09:23 5,000 UNITS Naloxone HCl 0.2 mg Q5MP PRN IV 03/21/25 04:45 03/21/25 04:48 0.2 MG Bumetanide 2 mg BIDD IV 03/21/25 13:30 03/25/25 06:22 2 MG Methocarbamol 500 mg BID PO 03/25/25 15:15 objective Alert awake oriented x3. Comfortable in bed without distress. HEENT neck supple no JVD. Heart regular rate rhythm S1-S2. Lungs without rales wheezes. Abdomen soft nontender positive bowel sounds. Extremities no edema positive pulses. laboratory and microbiology Laboratory Tests 03/25/25 04:55 Test 03/25/25 04:55 Range/Units Serum Glucose 132 H 74-106 mg/dL Assessment/Plan We will arrange for vancomycin with the dialysis as recommended by Infectious Disease for lumbar spine diskitis/pain. Otherwise we will have social Service involved to arrange for home health home PT and prepare her for discharge in the next 24 hours if she continued to remained stable. Meantime I will add Robaxin for her back discomfort overnight. Discussed with the patient and she verbalized understanding of care plan as outlined. Problems(with codes): (1) Discitis, unspecified, lumbar region (2) Generalized weakness (3) Hemodialysis patient (4) Ajrxy-nf-lgekdjy kidney injury (5) Bacteremia due to methicillin resistant Staphylococcus aureus (6) Lumbar stenosis with neurogenic claudication Dietary Evaluation Review Comments: Add CCHO-60 and Cardiac Low fat Low Cholesterol to Pt's Renal standard Diet Expected Outcomes/Goals: controlled DM, routine hemodialysis, improved nutrition related lab values. Plan discussed with: Patient, Other SHANNON LOPEZ MD March 25, 2025 15:57
[2025-03-25] MEDS: amLODIPine BESYLATE 5 MG TAB PO SCH (16:15)
[2025-03-25] MEDS: BUMETANIDE 2.5mg/10ml (0.25 mg/ml) INJ IV SCH (16:15)
--- NOTE | 2025-03-25 22:06 | DVHPN2 ---
Consult Progress Note Date Seen: March 25, 2025 Subjective Patient reports: Other (back pain is improving , no spinal tenderness ) Objective vital signs Vital Sign Date Time Temp Pulse Resp B/P (MAP) Pulse Ox O2 Delivery O2 Flow Rate FiO2 03/25/25 20:00 Nasal Cannula* 2 28 03/25/25 17:00 97.9 66 18 103/55 (71) 96 97.9 Total Intake and Output 03/24/25 03/24/25 03/25/25 15:00 23:00 07:00 Intake Total 540 ml 220 ml Balance 540 ml 220 ml medications Current Medications Medications Dose Ordered Sig/Linda Route Start Time Stop Time Status Last Admin Dose Admin Nitroglycerin 0.4 mg Q5MINP PRN SL 03/19/25 14:30 Morphine Sulfate 2 mg Q30M PRN IV 03/19/25 14:30 Vancomycin HCl 0 ml @ 0 mls/hr UD IV 03/19/25 14:30 Acetaminophen 650 mg Q4HP PRN PO 03/19/25 14:30 03/25/25 21:23 650 MG Ondansetron HCl 4 mg Q4HPRN PRN IV 03/19/25 14:45 03/21/25 03:26 4 MG Famotidine 10 mg EOD PO 03/20/25 10:00 03/24/25 08:42 10 MG Clonidine HCl 0.1 mg Q4HP PRN PO 03/19/25 14:45 Diagnostic Test (Pha) 1 strip ACHS 03/19/25 17:00 03/25/25 21:24 1 STRIP Insulin Human Regular ACHS SC 03/19/25 17:00 03/25/25 17:00 4 UNITS Dextrose 50 ml UD PRN IV 03/19/25 15:00 Heparin Sodium (Porcine) 5,000 units Q12HR SC 03/20/25 22:00 03/25/25 21:24 5,000 UNITS Naloxone HCl 0.2 mg Q5MP PRN IV 03/21/25 04:45 03/21/25 04:48 0.2 MG Methocarbamol 500 mg BID PO 03/25/25 15:15 03/25/25 21:23 500 MG Amlodipine Besylate 10 mg DAILY PO 03/25/25 16:15 Bumetanide 1 mg DAILY IV 03/25/25 16:15 Physical Exam: General: NAD Neck: Supple. No masses. HEENT: PERRL. Normal lids and conjunctiva. Moist mucous membranes. Oropharynx without lesions, exudates, or excessive erythema. Normal appearance of external nose and ears. Heart: Regular rhythm, normal rate. No murmur. No lower extremity edema. Lungs: Normal respiratory effort. Clear to auscultation bilaterally. No wheezes. No crackles. Abdomen: Soft. Non-tender. Non-distended. No masses or abdominal hernia. Msk: No digital cyanosis. Normal strength and tone in all 4 limbs. Skin: Warm and dry, no rashes. Neuro: Alert. No facial droop or slurred speech. Extra-ocular movements intact. Sensation intact to soft touch in all 4 limbs. laboratory and microbiology Laboratory Tests 03/25/25 04:55 Test 03/25/25 04:55 Range/Units Serum Glucose 132 H 74-106 mg/dL Problem List/Assessment/Plan Problems(with codes): (1) Osteomyelitis of vertebra, lumbar region (2) Lumbar stenosis with neurogenic claudication (3) Herniated vertebral disc (4) Anginal equivalent (5) Bacteremia due to methicillin resistant Staphylococcus aureus (6) Utpwu-pg-cbrwxjz kidney injury (7) Hemodialysis patient (8) Acute chest pain (9) Generalized weakness (10) Fever (11) Mild bibasilar atelectasis Problem List/Assessment/Plan ID Problem List: - End-stage renal disease (ESRD) on dialysis - Hypertension - Diabetes mellitus - History of catheter-associated MRSA bacteremia - Spinal osteomyelitis/discitis (lumbar) - Chest pain COPD Assessment: This is a 69-year-old female with a significant history of ESRD on dialysis, hypertension, diabetes, and COPD, presenting with chest pain since her last dialysis session. Chest pain described as dull, sternal, and initially associated with left arm numbness; also noted is nausea without fever or chills. No active tobacco, alcohol, or illicit drug use. On admission, patient was febrile with a lactic acid of 4.3, WBC 11.1. Four out of four blood cultures grew MRSA. Dialysis catheter was removed on 03/20. Since then, repeat blood cultures have been negative. Vancomycin therapy has been in place since diagnosis; organism is vancomycin-sensitive, VINNY 1. Cardiac: Echocardiogram on 03/19 showed sclerotic aortic valve leaflets, no aortic stenosis, mild mitral annular calcification, mild mitral regurgitation, and trivial pericardial effusion; study limited by body habitus. EKG showed left atrial abnormality, normal progression, and prolonged QT interval. Cardiology does not recommend ANTHONY given age and comorbidities. Spine: Recent complaints of back pain. Lumbar MRI demonstrates multilevel moderate to advanced degenerative disc disease, edema at L2-3, and L4 disc fragment with concern for osteomyelitis/discitis. Other: Large colonic fecal burden on imaging. 03/25:tolerating antibiotics through tunnel piccline . blood cultures remain no growth to date , no murmurs on heart exam . neurosurgery has seen patient and recommends no surgery but a TLSO brace for her back Plan: - agree with TLSO brace for patients back - Continue IV vancomycin for 6 weeks for spinal osteomyelitis/discitis. - Surveillance blood cultures to confirm eradication of MRSA once blood cultures are complete - Repeat transthoracic echocardiogram (TTE) as outpatient after completion of antibiotics. - would consider ANTHONY; high risk due to age/comorbidities. - Lumbar spine MRI to be repeated in 6 months to confirm resolution of osteomyelitis/discitis. - Physical therapy to assist with recovery post-antibiotic therapy. - New dialysis catheter placed on 03/23; will require continued dialysis management. - Continue monitoring for recurrent infection and manage comorbid conditions accordingly. - Treat as presumptive endocarditis given persistent MRSA bacteremia in setting of spinal infection; ANTHONY deferred, - Address constipation as indicated by colonic fecal burden on imaging. Plan discussed with: Other Dietary Evaluation Review Comments: Add CCHO-60 and Cardiac Low fat Low Cholesterol to Pt's Renal standard Diet Expected Outcomes/Goals: controlled DM, routine hemodialysis, improved nutrition related lab values. BHARATI LUU MD March 25, 2025 22:06
[2025-03-26] VITALS (7 sets, daily range): BP systolic 115–141; BP diastolic 44–55; PULSE 67–91; RESP 15–18; TEMP 97.6–99.4; O2SAT 98–100
[2025-03-26 09:33] LABS: Anion Gap 15 (5-15); Calcium 10.3 mg/dL (8.7-10.4); Carbon Dioxide 23 mmol/L (20-31)
[2025-03-26 09:34] LABS: Chloride 98 mmol/L (98-107); Sodium 136 mmol/L (136-145)
[2025-03-26 09:38] LABS: BUN/Creatinine Ratio 13.5 (10.0-20.0)
[2025-03-26 09:54] LABS: Glucose 163 mg/dL (74-106)
[2025-03-26 09:56] LABS: Blood Urea Nitrogen 90 mg/dL (9-23)
--- NOTE | 2025-03-26 11:04 | DVHPN2 ---
Progress Note Date Seen: March 26, 2025 Resident Creating Document: SONIA MEDRANO RESIDENT Medical Necessity Reason Pt with a Central, PICC or Fol: No Subjective Review of Systems This is a 69-year-old female patient with PMH ESRD on hemodialysis Sunday//Sunday with [facility] for the past 1 year, diabetes mellitus likely type 2 on glipizide since 2019, hypertension who was sent to the ER from her dialysis center when she experienced some midsternal chest pain radiating to the jaw which was pressure type in nature and radiating to the jaw in the arm. On my evaluation patient reports severe back pain, which is left- sided and midline lumbar region nonradiating, started last night while she was in the ER. Patient also reports fever and chills along with dizziness but denies any nausea/vomiting/diarrhea/palpitations. Patient reports making urine. Patient reports that around 2 weeks back her right tunneled catheter was draining greenish discharge for which she was given vancomycin. On arrival to the ER, patient is febrile at 100.4 F, requiring oxygen supplementation with 2 L, WBC 19, H and H 09/02, BUN/creatinine 38/4.6. Blood culture growing prelim Gram-positive cocci in cluster. Past medical history: ESRD on hemodialysis Sunday//Sunday with [facility] for the past 1 year, diabetes mellitus likely type 2 on glipizide since 2018, hypertension Social History: Lives with family, denies drinking/smoking/drug use 03/20 - Patient seen and examined at the bedside. Has midline lumbar tenderness. IR consulted for the removal of tunneled cath given the possible site of infection. 03/23-patient seen and examined at the bedside. IR consulted for tunneled catheter. Hemodialysis scheduled for tomorrow. Hold antihypertensives prior to hemodialysis. Follow up with BNP. 03/24 - patient seen and examined at the bedside. MRI Lumbar spine shows Multilevel moderate to advanced degenerative disease. Edema in the intervertebral disc space at L2-3 and L4-5 raises concern for osteomyelitis discitis. Clinical correlation and continued follow-up is recommended. This can be further evaluated with intravenous contrast. Moderate to severe central canal stenosis L3-4 and L4-5. Neural foraminal stenosis. 03/25-patient seen and examined at the bedside. BUN/creatinine trending down. Underwent hemodialysis 03/24. Received IV vancomycin 750 mg yesterday. 03/26-patient seen and examined at the bedside. Reports back pain getting better. Patient is undergoing hemodialysis, plan is to take 2 L out. Other Systems: Patient seen and examined by myself today on rounds with the medicine resident I agree with his assessment and plan Patient examined hemodialysis, blood pressure stable Objective vital signs Vital Sign Date Time Temp Pulse Resp B/P (MAP) Pulse Ox O2 Delivery O2 Flow Rate FiO2 03/26/25 09:43 129/50 03/26/25 09:00 98.1 68 15 99 98.1 03/26/25 08:00 Nasal Cannula* 3 32 Total Intake and Output 03/25/25 03/25/25 03/26/25 15:00 23:00 07:00 Intake Total 900 ml 700 ml Output Total 200 ml Balance 700 ml 700 ml medications Current Medications Medications Dose Ordered Sig/Linda Route Start Time Stop Time Status Last Admin Dose Admin Nitroglycerin 0.4 mg Q5MINP PRN SL 03/19/25 14:30 Morphine Sulfate 2 mg Q30M PRN IV 03/19/25 14:30 Vancomycin HCl 0 ml @ 0 mls/hr UD IV 03/19/25 14:30 Acetaminophen 650 mg Q4HP PRN PO 03/19/25 14:30 03/25/25 21:23 650 MG Ondansetron HCl 4 mg Q4HPRN PRN IV 03/19/25 14:45 03/21/25 03:26 4 MG Famotidine 10 mg EOD PO 03/20/25 10:00 03/24/25 08:42 10 MG Clonidine HCl 0.1 mg Q4HP PRN PO 03/19/25 14:45 Diagnostic Test (Pha) 1 strip ACHS 03/19/25 17:00 03/26/25 06:30 1 STRIP Insulin Human Regular ACHS SC 03/19/25 17:00 03/26/25 06:29 3 UNITS Dextrose 50 ml UD PRN IV 03/19/25 15:00 Heparin Sodium (Porcine) 5,000 units Q12HR SC 03/20/25 22:00 03/25/25 21:24 5,000 UNITS Naloxone HCl 0.2 mg Q5MP PRN IV 03/21/25 04:45 03/21/25 04:48 0.2 MG Methocarbamol 500 mg BID PO 03/25/25 15:15 03/25/25 21:23 500 MG Amlodipine Besylate 10 mg DAILY PO 03/25/25 16:15 Bumetanide 1 mg DAILY IV 03/25/25 16:15 Examination Patient lying in bed, in no acute distress. R IJ tunneled cath placed. General: Obese, afebrile, palor, mucosae are moist Cardiovascular: Regular S1 and S2. No murmurs, gallops or rubs. No JVD elevation. No pedal edema Respiratory: Normal B/L air entry on room air. Clear lung sounds on auscultation Abdomen: Soft, nontender, nondistended, normoactive bowel sounds, no rebound tenderness, no organomegaly, no masses Genitourinary: Deferred MSK/skin: Mobilizes 4 limbs. Skin is dry and warm. Patient has midline lumbar tenderness and paraspinal tenderness Neurological: No motor, no sensitive deficits, normal speech. Pupils are isocoric and reactive. Psych/Mental Status: A/Ox3 laboratory and microbiology Laboratory Tests 03/26/25 07:04 03/25/25 04:55 Test 03/26/25 07:04 Range/Units Serum Glucose 163 H 74-106 mg/dL Microbiology Date/Time Source Procedure Growth Status 03/22/25 07:19 Blood Blood Culture - Preliminary NO GROWTH AFTER 72 HOURS OF INCUBATION. 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 Edema in the intervertebral disc space at L2-3 and L4-5 raises concern for osteomyelitis discitis. Clinical correlation and continued follow-up is recommended. This can be further evaluated with intravenous contrast. Moderate to severe central canal stenosis L3-4 and L4-5. Neural foraminal stenosis. Plan: Continue with UF 2 L as tolerated2 BUN/creatinine up trending, patient undergoing hemodialysis at this time. Stable to be discharged after hemodialysis per Nephrology. Patient will require IV vancomycin for 6 weeks with the hemodialysis given osteomyelitis, diskitis. Tunneled catheter removed Tuesday 03/20. Given the negative preliminary blood cultures 03/20, 03/21 and 03/22, IR guided tunneled catheter placement 03/23. ID recommended IV vancomycin with dialysis 750 mg every session Continue strict I&Os, and adequate blood pressure control Renal ultrasound 03/2024 was unremarkable Continue IV antibiotics per primary team Avoid nephrotoxic medications Advised Physical therapy Diet renal Plan discussed with patient in which all questions have been answered Case discussed with Dr. Cummins Plan discussed with: Patient Dietary Evaluation Review Comments: Add CCHO-60 and Cardiac Low fat Low Cholesterol to Pt's Renal standard Diet Expected Outcomes/Goals: controlled DM, routine hemodialysis, improved nutrition related lab values. SONIA MEDRANO RESIDENT March 26, 2025 11:04 SHALONDA CUMMINS MD March 26, 2025 13:29
[2025-03-26] MEDS: SODIUM CHL 0.9% 1000 ML BAG XX ONE (11:48)
[2025-03-26] MEDS ORDERED: METH-1181 PO (12:00)
--- NOTE | 2025-03-26 12:02 | DVHDS2 ---
Discharge Summary Date of Admission March 19, 2025 at 14:27 Date of Discharge: March 26, 2025 Labs/Diagnostic Data: Laboratory Results Test 03/26/25 07:04 03/26/25 06:15 03/25/25 04:55 03/24/25 12:50 Sodium Level 136 mmol/L (136-145) Potassium Level 5.0 mmol/L (3.5-5.1) Chloride Level 98 mmol/L (98-107) Carbon Dioxide Level 23 mmol/L (20-31) Anion Gap 15 (5-15) Blood Urea Nitrogen 90 mg/dL (9-23) Creatinine 6.67 mg/dL (0.550-1.02) Glomerular Filtration Rate Calc 6 mL/min (>90) BUN/Creatinine Ratio 13.5 (10.0-20.0) Serum Glucose 163 mg/dL (74-106) Calcium Level 10.3 mg/dL (8.7-10.4) Random Vancomycin Level 20.5 ug/mL (5-10) POC Glucose 164 mg/dl (70-106) White Blood Count 9.7 10^3/uL (4.4-10.8) Red Blood Count 3.06 10^6/uL (4.0-5.20) Hemoglobin 10.0 g/dL (12.2-16.2) Hematocrit 28.8 % (36.0-46.0) Mean Corpuscular Volume 94.2 fL (80.0-100.0) Mean Corpuscular Hemoglobin 32.6 pg (28.0-32.0) Mean Corpuscular Hemoglobin Concent 34.6 g/dL (32.0-36.0) Red Cell Distribution Width 14.6 % (11.8-14.3) Platelet Count 307 10^3/uL (140-450) Mean Platelet Volume 8.3 fL (6.9-10.8) Neutrophils (%) (Auto) 72.1 % (37.0-80.0) Lymphocytes (%) (Auto) 13.5 % (10.0-50.0) Monocytes (%) (Auto) 11.5 % (0.0-12.0) Eosinophils (%) (Auto) 2.0 % (0.0-7.0) Basophils (%) (Auto) 0.9 % (0.0-2.0) Neutrophils # (Auto) 7.0 10 ^3/uL (1.6-8.6) Lymphocytes # (Auto) 1.3 10 ^3/uL (0.4-5.4) Monocytes # (Auto) 1.1 10 ^3/uL (0-1.3) Eosinophils # (Auto) 0.2 10 ^3/uL (0-0.8) Basophils # (Auto) 0.1 10 ^3/uL (0-0.2) Nucleated Red Blood Cells 0.1 % Hepatitis A IgM Antibody Negative Hepatitis B Surface Antigen Negative (Negative) Hepatitis B Core IgM Antibody Negative (Negative) Hepatitis C Antibody Negative (Negative) Test 03/23/25 11:50 03/23/25 06:00 03/21/25 04:30 03/20/25 05:30 Beta HCG, Quantitative 10.0 mIU/mL (1.5-4.2) B-Type Natriuretic Peptide 703.70 pg/mL (0-100) Differential Total Cells Counted 100.0 (100) Neutrophils % (Manual) 80 (37.0-80.0) Band Neutrophils % (Manual) 2 Lymphocytes % (Manual) 9 (10.0-50.0) Monocytes % (Manual) 8 (0-12) Eosinophils % (Manual) 1 (0-7) Basophils % (Manual) 0 (0.0-2.0) Metamyelocytes % (manual) 0 Myelocytes % (Manual) 0 Promyelocytes % (Manual) 0 Blast Cells % (Manual) 0 Reactive Lymphocytes 0 Platelet Estimate Adequate Phosphorus Level 5.7 mg/dL (2.4-5.1) Magnesium Level 2.0 mg/dL (1.6-2.6) Vitamin D 25-Hydroxy 79.0 ng/mL (30.0-100) Parathyroid Hormone (Intact) 589.5 pg/mL (18.4-80.1) Test 03/19/25 15:44 03/19/25 14:00 03/19/25 11:00 Influenza Type A Antigen Negative (Negative) Influenza Type B Antigen Negative (Negative) Lactic Acid Level 1.3 mmol/L (0.4-2.0) Troponin I High Sensitivity 32 ng/L (</=34) Prothrombin Time 11.5 sec (9.3-11.8) Prothrombin Time INR 1.09 (0.9-1.15) Activated Partial Thromboplast Time 29.3 SEC (24.5-34.5) Hemoglobin A1c 6.2 % A1C (<5.7) Triglycerides Level 117 mg/dL (< 150) Cholesterol Level 194 mg/dL (< 200) LDL Cholesterol 125 mg/dL (< 100) HDL Cholesterol 50 mg/dL (40-59) Other Laboratory Tests 03/26/25 07:04 03/25/25 04:55 Brief Hx & Hospital Course: 69-year-old female brought in by ambulance with prior history of dialysis-T, TH, Sat, hypertension, diabetes; surgical history of appendectomy, cholecystectomy, in chief complaining of chest pain. EMS report that the patient is a poor historian but informed in the the chest pain started last night which was nonradiating and sternal with dull ache pain. Patient went to her dialysis this morning 5 am, in started to get left arm numbness at approximately 7 am. In notes on having nausea. Denies chills, fever, /V/D, SOB. No other associated symptoms, modifiers, recent injuries or sick contacts present at this time. In the ER she is noted to have a temperature in the 100 range. Given her dialysis catheter with a fever and elevated WBC it is felt patient warrants admission and further evaluation to rule out bacteremia or catheter related infection. She is admitted and noted to have MRSA bacteremia. Therefore her tunneled dialysis catheter is removed. Patient received empiric IV antibiotics. Subsequently she had follow up blood cultures which were negative. Then she is recommended to have reinsertion of her tunneled dialysis catheter which was done and continued hemodialysis in the hospital. Meantime patient also complained of significant low back pain. Therefore she had MRI of the thoracic and lumbar spine. Lumbar spine showed possible diskitis. Colton this could be causing her back pain. Therefore she underwent Infectious Disease as well as a spine surgery consultations evaluations. Essentially they have recommended to continue long-term IV antibiotics for diskitis and bacteremia. Therefore vancomycin is being arranged with the hemodialysis for ID recommendations. While in the hospital patient participated little bit with physical therapy. Her pain is improved. She is started on Robaxin which seemed to help her. Patient is advised to go to a long-term facility for physical therapy however she refused and wanted to go home to her home caregiver. Patient apparently already has a walker and wheelchair at home therefore home health is being arranged for physical therapy and being discharged in stable condition today Rajat no further acute issues identified. I have talked with the patient at length multiple occasions during this hospitalization regarding her hospital diagnosis, treatment she received, MRI findings, discharge medications, discharge instructions and follow-up plan of care. She has verbalized understanding of these and agree with the care plan as outlined. Consults/Reason for consult PROCEDURE: MRI LUMBAR SPINE WO CONTRAST INDICATION: back pain Exam Date: 03/23/2025 04:53 PM COMPARISON: None TECHNIQUE: MRI lumbar spine without intravenous contrast. FINDINGS: The lumbar alignment is intact. Intervertebral edema at L2-3 and L4-5 raises concern for osteomyelitis discitis. Marrow signal is heterogeneous. There are degenerative endplate changes including modic endplate changes with anterior and lateral osteophytes throughout the lumbar spine. The visualized distal spinal cord and conus medullaris are within normal limits. The conus medullaris appears to terminate within normal limits. The visualized retroperitoneal and paraspinal soft tissues are unremarkable. The following axial levels are detailed below: T12-L1: Unremarkable. L1-L2: There is a moderate circumferential disc bulge complicated by facet arthropathy associated with mild to moderate left neuroforaminal stenosis. No significant central canal stenosis. L2-L3: There is a moderate circumferential disc bulge complicated by facet arthropathy associated with mild to moderate bilateral neuroforaminal stenosis. No significant central canal stenosis. L3-L4: There is a moderate circumferential disc bulge complicated by facet arthropathy associated with mild to moderate bilateral neuroforaminal stenosis. Central canal measures 8 mm. L4-L5: There is a severe circumferential disc bulge complicated by facet arthropathy narrowing the central canal to 7 mm with associated moderate to severe bilateral neuroforaminal stenosis. L5-S1: There is a moderate circumferential disc bulge complicated by facet arthropathy associated with mild to moderate bilateral neuroforaminal stenosis left greater than right. No significant central canal stenosis. IMPRESSION: 1. Multilevel moderate to advanced degenerative disease. Edema in the intervertebral disc space at L2-3 and L4-5 raises concern for osteomyelitis discitis. Clinical correlation and continued follow-up is recommended. This can be further evaluated with intravenous contrast. Moderate to severe central canal stenosis L3-4 and L4-5. Neural foraminal stenosis as above. HS:Y ATED BY: MART ELIZONDO MD DICTATED DATE/TIME: 03/23/25 1825 Operations or Procedures EXAM: LIMITED Two-dimensional and M-mode echocardiogram with Doppler and color Doppler. Blood Pressure: 123/46 mmHg INDICATION Chest Pain Fever RISK FACTORS Height: 5', Weight: 160 DIMENSIONS LVDd 5.0 (3.8-5.7cm) LA (2D) 3.8 (1.9-4.0cm) Aortic Root 3.2 (2.0- 3.7cm) LVDs 3.6 (2.5-4.0cm) LA (MM) (1.9-4.0cm) Aortic Cusp Exc 1.6 (1.5- 2.0cm) EF (%) 55.0 (55-70%) Rt. Atrium 3.9 (1.9-4.0cm) Asc. Aorta cm IVSd 1.0 (0.7-1.1cm) RV (D) (1.8-2.4cm) PWd 1.0 (0.7-1.1cm) Mitral Valve Mitral Mitral Stenosis E wave 1.00m/s MV Mean GR. mmHg A wave 1.00m/s MV Peak GR. mmHg E/A ratio 1.0 2D MVA cm2 Aortic Valve Aortic Valve Aortic Stenosis V1 0.80m/s AO Mean GR. 6mmHg V2 1.50m/s AO Peak GR. 9mmHg LVOT Diameter 2.2 (1.8-2.4cm) Doppler JACOB 2.03cm2 Pulmonic Valve V2 1.00m/s Tricuspid Valve TR Velocity 2.50m/s RVSP 30mmHg Other Information Quality : Technically Limited Rhythm : Technically limited study due to body habitus. Conclusion There is mild concentric left ventricular hypertrophy Left ventricular systolic function is preserved Ejection fraction is estimated at 60% Aortic valve is tricuspid Aortic valve leaflets are sclerotic without evidence of stenosis There is mild mitral annular calcification There is mild mitral regurgitation There is trivial pericardial effusion SIGNED BY: KIKO ROSADO MD SIGNED DATE/TIME: 03/19/25 2484 Condition at Discharge: Stable Final Diagnosis/Problems List Bacteremia without signs of sepsis, end-stage renal disease on hemodialysis, status post replacement of tunneled dialysis catheter, lumbar vertebral diskitis with back pain recommended treat with IV vanc with the dialysis, hypertension secondary to end-stage renal disease Discharge Disposition: Home with Health Services Discharge Instruct/Medications Diet: Consistent carbohydrate, Cardiac 2g Na,low cholest, Renal Activity: No Restrictions, As Tolerated Activity comment: With the assistance and walker/wheelchair Follow Up/Referral: Dr. Huan jimenez infectious disease after one month follow up back pain and diskitis. Hemodialysis 3 times a week as your scheduled. Medications: As prescribed and home medications per discharge list. New Medications: Methocarbamol (Methocarbamol) 500 Mg Tab 500 MG PO BID, #30 TAB Hold if you feel drowsy or confused Continued Medications: Alendronate Sodium (Alendronate Sodium) 70 Mg Tab 1 TAB PO QWEEKLY Amlodipine Besylate (Amlodipine Besylate) 5 Mg Tab 1 TAB PO DAILY Ergocalciferol (Vitamin D) 50,000 Unit Cap 1 CAP PO QWEEKLY Ferrous Sulfate (Ferrous Sulfate) 325 Mg Tab 325 MG PO BIDWM for 30 Days, MG Linagliptin Base (Tradjenta) 5 Mg Tab 1 TAB PO DAILY Ondansetron Odt 4MG Tab (Zofran Po) 4 Mg Tb 4 MG PO Q8HPRN PRN, #20 TAB ODT TAB-DISSOLVE IN MOUTH, THEN SWALLOW Pantoprazole Sodium Sesquihydr (Pantoprazole Sodium) 40 Mg Tab 40 MG PO DAILY@BREAKFAST, #30 TAB Rosuvastatin Calcium (Rosuvastatin Calcium) 20 Mg Tab 1 TAB PO DAILY Discontinued Medications: Glipizide (Glipizide) 5 Mg Tab 2.5 MG PO DAILY, #15 TAB Discharge Statement: "Patient was advised to return to the ER or call 911 if any headaches, dizziness, shortness of breath, chest pain, abdominal pain, bleeding, fevers, or worsening of medical condition. Patient was counseled about treatment plan, medications, possible side effects, patientverbalized understanding. All questions were answered to the best of my ability. This discharge took greater then 30 minutes in planning, reviewing documentation, counseling the patient, and discussing with other team members." ASSESSMENT ASSESSMENT Assessment Bacteremia without signs of sepsis, end-stage renal disease on hemodialysis, status post replacement of tunneled dialysis catheter, lumbar vertebral diskitis with back pain recommended treat with IV vanc with the dialysis, hypertension secondary to end-stage renal disease SHANNON LOPEZ MD March 26, 2025 12:02
[2025-03-26] MEDS ORDERED: EPOETIN ALFA-EPBX 10,000 UNIT/1ML VIAL SC ONE (21:00)
--- NOTE | 2025-03-26 22:04 | DVHPN2 ---
Consult Progress Note Date Seen: March 26, 2025 Subjective Patient reports: Feels better (no fever or chills ,no diarrhea or rash) Objective vital signs Vital Sign Date Time Temp Pulse Resp B/P (MAP) Pulse Ox O2 Delivery O2 Flow Rate FiO2 03/26/25 17:00 97.9 71 16 141/44 (76) 98 97.9 03/26/25 08:00 Nasal Cannula* 3 32 Total Intake and Output 03/25/25 03/25/25 03/26/25 15:00 23:00 07:00 Intake Total 900 ml 700 ml Output Total 200 ml Balance 700 ml 700 ml Examination: GENERAL:Normal, HEENT:Normal, NECK:Normal, LUNGS:Normal, ABDOMEN:Normal, MSK:Normal, SKIN:Normal, :Normal laboratory and microbiology Laboratory Tests 03/26/25 07:04 03/25/25 04:55 Test 03/26/25 07:04 Range/Units Serum Glucose 163 H 74-106 mg/dL Problem List/Assessment/Plan Problem List/Assessment/Plan ID Problem List: - End-stage renal disease (ESRD) on dialysis - Hypertension - Diabetes mellitus - History of catheter-associated MRSA bacteremia - Spinal osteomyelitis/discitis (lumbar) - Chest pain COPD Assessment: This is a 69-year-old female with a significant history of ESRD on dialysis, hypertension, diabetes, and COPD, presenting with chest pain since her last dialysis session. Chest pain described as dull, sternal, and initially associated with left arm numbness; also noted is nausea without fever or chills. No active tobacco, alcohol, or illicit drug use. On admission, patient was febrile with a lactic acid of 4.3, WBC 11.1. Four out of four blood cultures grew MRSA. Dialysis catheter was removed on 03/20. Since then, repeat blood cultures have been negative. Vancomycin therapy has been in place since diagnosis; organism is vancomycin-sensitive, VINNY 1. Cardiac: Echocardiogram on 03/19 showed sclerotic aortic valve leaflets, no aortic stenosis, mild mitral annular calcification, mild mitral regurgitation, and trivial pericardial effusion; study limited by body habitus. EKG showed left atrial abnormality, normal progression, and prolonged QT interval. Cardiology does not recommend ANTHONY given age and comorbidities. Spine: Recent complaints of back pain. Lumbar MRI demonstrates multilevel moderate to advanced degenerative disc disease, edema at L2-3, and L4 disc fragment with concern for osteomyelitis/discitis. Other: Large colonic fecal burden on imaging. 03/25:tolerating antibiotics through tunnel piccline . blood cultures remain no growth to date , no murmurs on heart exam . neurosurgery has seen patient and recommends no surgery but a TLSO brace for her back Plan: - agree with TLSO brace for patients back - Continue IV vancomycin for 6 weeks for spinal osteomyelitis/discitis. - Surveillance blood cultures to confirm eradication of MRSA once blood cultures are complete - Repeat transthoracic echocardiogram (TTE) as outpatient after completion of antibiotics. - would consider ANTHONY; high risk due to age/comorbidities. - Lumbar spine MRI to be repeated in 6 months to confirm resolution of osteomyelitis/discitis. - Physical therapy to assist with recovery post-antibiotic therapy. - New dialysis catheter placed on 03/23; will require continued dialysis management. - Continue monitoring for recurrent infection and manage comorbid conditions accordingly. - Treat as presumptive endocarditis given persistent MRSA bacteremia in setting of spinal infection; ANTHONY deferred, - Address constipation as indicated by colonic fecal burden on imaging. Plan discussed with: Patient Dietary Evaluation Review Comments: Add CCHO-60 and Cardiac Low fat Low Cholesterol to Pt's Renal standard Diet Expected Outcomes/Goals: controlled DM, routine hemodialysis, improved nutrition related lab values. BHARATI LUU MD March 26, 2025 22:04
== END 2025-03-26 18:20 | disposition home health service (06) | DRG 304 ==
LOC: EDBD 10:53 → EDUNIT# 10:53 → ER 11:07 → OVERFLOW 14:27 → TELE-CENTR 23:10
PROVIDERS: ADMIT Hospitalist; ATTEND Hospitalist
PROC: 0JH63XZ Insertion of Tunneled Vascular Access Device into Chest Subcutaneous Tissue and Fascia, Percutaneous Approach (ICD-10-PCS; principal; 2025-03-23)
PROC: 02H633Z Insertion of Infusion Device into Right Atrium, Percutaneous Approach (ICD-10-PCS; 2025-03-23)
PROC: B548ZZA Ultrasonography of Superior Vena Cava, Guidance (ICD-10-PCS; 2025-03-23)
PROC: B518ZZA Fluoroscopy of Superior Vena Cava, Guidance (ICD-10-PCS; 2025-03-23)
DX: I16.0 Hypertensive urgency (principal); J96.01 Acute respiratory failure with hypoxia; N18.6 End stage renal disease; M46.26 Osteomyelitis of vertebra, lumbar region; I12.0 Hypertensive chronic kidney disease with stage 5 chronic kidney disease or end stage renal disease; B95.62 Methicillin resistant Staphylococcus aureus infection as the cause of diseases classified elsewhere; E11.22 Type 2 diabetes mellitus with diabetic chronic kidney disease; M48.062 Spinal stenosis, lumbar region with neurogenic claudication; K21.9 Gastro-esophageal reflux disease without esophagitis; D63.1 Anemia in chronic kidney disease; E11.69 Type 2 diabetes mellitus with other specified complication; J44.9 Chronic obstructive pulmonary disease, unspecified; M51.369 Other intervertebral disc degeneration, lumbar region without mention of lumbar back pain or lower extremity pain; Z99.2 Dependence on renal dialysis; Z82.49 Family history of ischemic heart disease and other diseases of the circulatory system; Z83.3 Family history of diabetes mellitus; Z90.49 Acquired absence of other specified parts of digestive tract; Z79.84 Long term (current) use of oral hypoglycemic drugs
CPT/HCPCS: 36415; 36558; 71045; 72110; 72146; 72148; 74018; 77001; 80048; 80061; 80074; 80202; 82306; 82962; 83036; 83605; 83735; 83880; 83970; 84100; 84484; 84702; 85007; 85025; 85027; 85610; 85730; 86850; 86900; 86901; 87040; 87070; 87075; 87077; 87081; 87186; 87804; 90935; 93005; 93306; 97110; 97163; 99152; 99291; C1894; G0378; J0692; J1642; J1815; J2003; J2405